=== PATIENT | male | born 1980 | race African-American/Black ===

== ENCOUNTER 2021-01-27 21:50 | Inpatient (IN) | payer MEDICAID, SELFPAY ==
[2021-01-27 21:53] VITALS: BP 145/87; PULSE 103; RESP 18; TEMP 37.1; O2SAT 98; BMI 21.2
--- NOTE | 2021-01-27 23:55 | ED_ITS ---
HPI - Psych General Chief Complaint: Psychiatric Symptoms Stated Complaint: crisis Time Seen by Provider: 01/27/21 22:41 Source: patient Mode of arrival: ambulatory History of Present Illness HPI Narrative: This is a 40-year-old male without significant past medical history but with a history of heroin and cocaine use who presents with complaints of auditory and visual hallucinations and the sensation that he is being followed. Patient states that this started a couple of days ago and he has had decreased sleep and that he call the retail reset merchandiser wants to investigate what he thought was flashing lights. He denies that the auditory hallucinations are command in nature and denies that they are telling him to hurt himself or others. He denies any suicidal or homicidal ideation currently. Related Data Allergies Allergy/AdvReac Type Severity Reaction Status Date / Time No Known Allergies Allergy Verified 01/27/21 21:53 Review of Systems Review of Systems: Pertinent positives and negatives as stated in HPI 10 point review of systems is otherwise negative. PMFSH Past Medical History Source: nursing notes reviewed Medical History Polysubstance (including opioids) dependence w/o physiol dependence Social History Social History Advance Directives: No Physical Exam Vital Signs: Vital Signs: Last Vital Signs Temp 98.5 F 01/28/21 00:05 Pulse 66 01/28/21 00:05 Resp 16 01/28/21 00:05 BP 122/74 01/28/21 00:05 Pulse Ox 99 01/28/21 00:05 Body Mass Index 21.2 VITAL SIGNS: Reviewed. GENERAL: Well developed, well nourished, in no acute distress. HEAD: Normocephalic/atraumatic EYES: PERRLA, EOMI LUNGS: Normal breath sounds. No adventitious sounds or accessory muscle use. SpO2<98> CARDIOVASCULAR: Regular rate and rhythm without noted murmurs ABDOMEN: Soft, non-tender, non-distended with bowel sounds. NEUROLOGIC: Alert and oriented x 4. PSYCH: Normal affect, logical thought Course Course Course Narrative: 40-year-old male with history and clinical presentation suggestive of possible AVH secondary to substance use, but will ask behavioral team to evaluate in the a.m. after less likely substance effect. Signed out to Dr Lamar. Reevaluation(s) Reevaluation #1: Patient placed in physician observation because the patient needed more time for behavioral evaluation. At the time observation was started the patient's vital signs were stable, patient is alert and oriented but slightly agitated, neuro: Nonfocal, CV RRR, lungs clear Time: 00:30 [facility] - Psych Lab Data Labs: Lab Results 01/28/21 Range/Units 00:43 Ethyl Alcohol < 10 mg/dL
--- NOTE | 2021-01-28 | ECG_ITS ---
Test Reason : MED CLEARANCE Blood Pressure : / mmHG Vent. Rate : 071 BPM Atrial Rate : 071 BPM P-R Int : 152 ms QRS Dur : 092 ms QT Int : 438 ms P-R-T Axes : 082 072 077 degrees QTc Int : 475 ms Normal sinus rhythm Normal ECG No previous ECGs available Referred By: Huber Taylor Electronically Signed By:Leo Garibay
[2021-01-28 00:05] VITALS: BP 122/74; PULSE 66; RESP 16; TEMP 36.9; O2SAT 99
[2021-01-28 01:14] LABS: Ethanol < 10 mg/dL
[2021-01-28 05:41] LABS: Amphetamine Screen Urine Not Detected (Not Detect); Barbiturates, Urine Not Detected (Not Detect); Benzodiazepines Screen Urine Not Detected (Not Detect); Cannabinoid Screen Urine POSITIVE (Not Detect); Cocaine Screen Urine POSITIVE (Not Detect); Opiate Screen Urine POSITIVE (Not Detect); Phencyclidine Screen Urine Not Detected (Not Detect)
--- NOTE | 2021-01-28 07:58 | PC.NURSE ---
Completed N Crisis referral and submitted to [facility]. Patient sleeping in room, no sign of distress, respirations even/unlabored bilaterally.
[2021-01-28 08:00] VITALS: RESP 16
[2021-01-28 08:20] VITALS: BP 118/71; PULSE 67; RESP 18; TEMP 36.6; O2SAT 100
--- NOTE | 2021-01-28 10:20 | MHC.RECOVSUP ---
Recovery Support note: Patient is a 40 year old Estonian speaking male who presented to [facility] ED due to poor sleep and AH. Patient reported recent heroin use. This commercial underwriter met with patient to discuss withdrawal symptoms. Patient reports that he is starting to feel withdrawal symptoms and he is interested in receiving methadone. Patient reports he gets his methadone at [facility] which is now [facility]. Patient reported to this commercial underwriter that he has missed several days and he is concerned that they will not allow him to return. Patient signed a release which was faxed to [facility]. This commercial underwriter spoke with Sol GARCIA, who reported that patient last received 70mg on 01/20. Sol spoke with the PA at the clinic and patient is able to return for dosing however they would start patient at 30mg because he missed several days. Discussed with patient and he is agreeable to receiving 30mg while in the hospital and he will return to the [facility] after discharge to continue working with them for medication management. Patient is currently awaiting a BHN evaluation. Discussed case with patient's RN and ED provider.
[2021-01-28] MEDS: Ibuprofen 800 MG TABLET PO (14:15)
[2021-01-28 16:00] VITALS: RESP 14
[2021-01-28] MEDS: LORazepam 1 MG TABLET 2 MG PO (16:54)
[2021-01-28 17:57] LABS: MANUAL DIFF FLAG NO
[2021-01-28 17:58] LABS: Basophils Percent Auto 0.2 % (0-2); Eosinophils Absolute Auto 0.1 X10*3/uL (0.0-0.4); Eosinophils Percent Auto 1.2 % (0-4); Hematocrit 44.7 % (42-52); Hemoglobin 14.6 g/dl (14.0-18.0); Imm Gran Abs Auto 0.01 X10*3/uL (0.00-0.03); Imm Gran Pct Auto 0.2 % (0.0-0.4); Lymphocytes Absolute Auto 1.4 X10*3/uL (1.2-4.9); Lymphocytes Percent Auto 27.8 % (20-40); Mean Corpuscular HGB Conc 32.7 g/dl (31.0-36.0); Mean Corpuscular Hemoglobin 27.7 pg (27.0-33.0); Mean Corpuscular Volume 84.8 fL (80-98); Mean Platelet Volume 9.6 fL (9.4-12.4); Monocytes Absolute Auto 0.5 X10*3/uL (0.1-1.2); Monocytes Percent Auto 9.3 % (2-11); Neutrophils Percent Auto 61.3 % (45-73); Platelet Count 292 X10*3/uL (160-400); Red Blood Count 5.27 X10*6/uL (4.60-5.80); Red Cell Distribution Width 12.9 % (11.0-16.0); White Blood Count 4.9 X10*3/uL (4.8-10.8)
[2021-01-28 18:17] LABS: COVID-19 Test Negative (Negative)
--- NOTE | 2021-01-28 18:20 | MHC.RECOVSUP ---
? Reason for consult recovery Support o Current location: [facility] o Identified substance use concern: Heroin - Support ? Intervention: o Community resources provided o Harm reduction discussion ? Plan: o Patient to follow up with [facility] after discharge ? Additional information: Met with patient and is looking for after care a Group Home Program after he his mental situation is better...
[2021-01-28 18:31] VITALS: BP 112/73; PULSE 70; RESP 20; TEMP 36.9; O2SAT 99
[2021-01-28 18:31] LABS: Anion Gap 14 (12-20); Blood Urea Nitrogen 11 mg/dL (9-16); Calcium 9.5 mg/dL (8.4-10.2); Carbon Dioxide 26 mmol/L (22-29); Chloride 102 mmol/L (96-108); Creatinine Clr Calc Pharmacy 136.7; Estimated Glomerular Filt Rate > 60; Glucose Random 86 mg/dL (60-115); Potassium 4.2 mmol/L (3.3-5.1); Sodium 138 mmol/L (135-145)
--- NOTE | 2021-01-28 19:00 | PC.NURSE ---
PT TO M5 IN W/C WITH BELONGINGS AND SECURITY. PT LEFT ED IN NAD.
[2021-01-28 20:31] VITALS: BP 135/86; PULSE 81
[2021-01-28] MEDS: Acetaminophen 325 MG TABLET 650 MG PO (20:31)
[2021-01-28] MEDS: LORazepam 1 MG TABLET PO (20:31)
[2021-01-28] MEDS: cloNIDine HCL 0.1 MG TABLET PO (20:31)
[2021-01-28] MEDS: hydrOXYzine HCL 25 MG TABLET PO (20:31)
--- NOTE | 2021-01-28 21:41 | PC.NURSE ---
PT. IS A 40 YEAR OLD HOMELESS, MONGOLIAN SPEAKING MALE WHO PRESENTS FROM THE [facility] ED AT APPROX. 19:00 TO M 5 ON A CV STATUS. PT. IS COVID NEGATIVE, UTOX POSITIVE FOR COCAINE, MARIJUANA AND OPIOIDS. PT. REPORTED HE USES HEROIN IV. PT. STATED HE WAS AT [facility] 6 YEARS AGO. PT. REPORTED HE RECEIVES METHADONE AT [facility]. HE REPORTED PTSD, AH/VH, VOICES MAKING SOUNDS AND WHISTLING, TRYING TO ANNOY ME . HE DENIED SI, SH, BUT REPORTED HE HAD SH IN THE PAST. I LIKE CUTTING MYSELF . PT. HAS NO PCP, NO MENTAL HEALTH CARE SERVICES OUTSIDE THE HOSPITAL. HE REPORTED HE LOST 30 LBS. IN A COUPLE OF MONTH UNINTENTIONAL. PT. STATED HE HAS A TRAUMA HX AND NO SUPPORT SYSTEM. PT. HAD A FLAT, ANXIOUS AND DEPRESSED AFFECT, HE WAS TIRED DURING ADMISSION PROCESS. HE WAS COOPERATIVE, REPORTED BODY ACHE 8/10 BUT DENIED CURRENT WITHDRAWAL SYMPTOMS. HE REPORTED TO FEEL SAFE. ADMISSION MEDICATION ORDERS WERE RECEIVED BY Sarbjit HORTON, PRN ATIVAN, ATARAX, CLONIDINE AND TYLENOL WERE ADMINISTERED. PT. IS A SMOKER, NICOTINE REPLACEMENT AND DIET CONSULT WERE PLACED. PT. IS ON 5 MIN. SAFETY CHECKS, HE WAS ORIENTED TO THE UNIT. PT. NEEDS METHADONE ORDER PLACED IN AM FROM HIS PROVIDER.
[2021-01-29 06:00] VITALS: BP 105/56; PULSE 68; RESP 14; TEMP 37.1; O2SAT 99
[2021-01-29] MEDS: LORazepam 1 MG TABLET PO ×2 (08:17→18:54)
[2021-01-29] MEDS: Acetaminophen 325 MG TABLET 650 MG PO ×2 (08:18→19:43)
[2021-01-29] MEDS: cloNIDine HCL 0.1 MG TABLET PO ×2 (08:18→19:44)
[2021-01-29] MEDS: Nicotine 21 MG PATCH.TD24 TRANSDERMA (11:58)
--- NOTE | 2021-01-29 13:18 | MHC.RECOVSUP ---
Recovery Support note: This repairer typewriter followed up with this patient on the psychiatric unit to see how he is feeling regarding his withdrawal symptoms. Patient received a total of 40mg today and reports he is feeling OK however he thinks he would benefit from an increase in the dose. Patient reports it would be more convenient for him to get his methadone through the [facility] in [place]. Patient reports he is interested in remaining in treatment and that he would like to go to a [facility] after discharge. Plan to follow up with patient on Sunday and to discuss his discharge plan with his dialysis social worker.
[2021-01-29] MEDS: QUEtiapine Fumarate 50 MG TABLET PO (13:45)
[2021-01-29 16:58] VITALS: BP 110/70; PULSE 91; RESP 18; TEMP 36.2; O2SAT 100
[2021-01-29 19:44] VITALS: BP 117/77; PULSE 89
--- NOTE | 2021-01-29 20:47 | P.HPPS_ITS ---
HPI Chief Complaint: agitation Sources of Information: patient interviewed, chart reviewed and crisis/core team assessment reviewed HPI Subjective Notes: Conditional Voluntary Narrative: Drew presented to the ER with paranoia and an increase in agitation. He was experiencing AH, low mood, hopelessness, and vague SI. He has not been in treatment and he has been hoping to get back in to treatment. He is on methadone 70mg daily but has not taken any since 01/20/21. It was restarted in ER at 30mg. On arrival to the unit he was n WD and quite agitated. He settled once he was given a higher dose of methadone and recieved help from SW. He has relapsed with heroin, cocaine and MJ Past Psychiatric History: Multiple admissions Last on M5 2015 at which time he was Rx RSP and sertraline which were helpful Medical Evaluation Reviewed: Yes [facility] Medical History (Updated 01/29/21 @ 20:53 by Sabrina Byrnes MD) Polysubstance (including opioids) dependence w/o physiol dependence Family History: Denies Social History: Homeless Substance History: Opiates Diagnostics Vital Signs (24Hr): Vital Signs - 24 hr 01/29/21 06:00 01/29/21 16:58 01/29/21 19:44 Temperature 98.8 F 97.2 F Pulse Rate 68 91 89 Respiratory Rate 14 18 Blood Pressure 105/56 L 110/70 117/77 Pulse Oximetry 99 100 Body Mass Index 21.2 Labs Results: 01/28/21 17:50 01/28/21 17:50 Labs: Laboratory Results - last 48 hr 01/28/21 01/28/21 01/28/21 00:43 05:04 17:50 WBC 4.9 RBC 5.27 Hgb 14.6 Hct 44.7 MCV 84.8 MCH 27.7 MCHC 32.7 RDW 12.9 Plt Count 292 MPV 9.6 Immature Gran % (Auto) 0.2 Neut % (Auto) 61.3 Lymph % (Auto) 27.8 [place] % (Auto) 9.3 Eos % (Auto) 1.2 Baso % (Auto) 0.2 Lymph # (Auto) 1.4 [place] # (Auto) 0.5 Eos # (Auto) 0.1 Baso # (Auto) 0.0 Abs Immat Gran (auto) 0.01 Absolute Neuts (auto) 3.0 Absolute Nucleated RBC 0.000 Nucleated RBC % (auto) 0.0 Sodium Potassium Chloride Carbon Dioxide Anion Gap BUN Creatinine Estim Creat Clear Calc Estimated GFR Random Glucose Calcium Urine Opiates Screen POSITIVE H Ur Barbiturates Screen Not Detected Ur Phencyclidine Scrn Not Detected Ur Amphetamines Screen Not Detected U Benzodiazepines Scrn Not Detected Urine Cocaine Screen POSITIVE H U Marijuana (THC) Screen POSITIVE H Ethyl Alcohol < 10 COVID-19 ([facility]) COVID-19 Inxero 01/28/21 01/28/21 17:50 17:50 WBC RBC Hgb Hct MCV MCH MCHC RDW Plt Count MPV Immature Gran % (Auto) Neut % (Auto) Lymph % (Auto) [place] % (Auto) Eos % (Auto) Baso % (Auto) Lymph # (Auto) [place] # (Auto) Eos # (Auto) Baso # (Auto) Abs Immat Gran (auto) Absolute Neuts (auto) Absolute Nucleated RBC Nucleated RBC % (auto) Sodium 138 Potassium 4.2 Chloride 102 Carbon Dioxide 26 Anion Gap 14 BUN 11 Creatinine 0.76 Estim Creat Clear Calc 136.7 Estimated GFR > 60 Random Glucose 86 Calcium 9.5 Urine Opiates Screen Ur Barbiturates Screen Ur Phencyclidine Scrn Ur Amphetamines Screen U Benzodiazepines Scrn Urine Cocaine Screen U Marijuana (THC) Screen Ethyl Alcohol COVID-19 ([facility]) Negative COVID-19 Clin Com See Note Meds/Allergies Meds Home Medications Acetaminophen (Acetaminophen 325 Mg Tablet) 650 mg PO Q6H PRN PRN Reason: Headache/Pain Mild Scale (1-3) Last Admin: 01/29/21 19:43 Dose: 650 mg Documented by: Al Hydroxide/Mg Hydroxide (Magnesium Hydrox/Alum Hydrox 30 Ml Oral.Susp) 30 ml PO Q6H PRN PRN Reason: Heartburn/Nausea Clonidine HCl (Clonidine Hcl 0.1 Mg Tablet) 0.1 mg PO Q4H PRN; Protocol PRN Reason: Opiate Withdrawal Last Admin: 01/29/21 19:44 Dose: 0.1 mg Documented by: Hydroxyzine HCl (Hydroxyzine Hcl 25 Mg Tablet) 25 mg PO BEDTIME PRN PRN Reason: Anxiety Last Admin: 01/29/21 20:51 Dose: 25 mg Documented by: Lorazepam (Lorazepam 1 Mg Tablet) 2 mg PO ONCE PRN PRN Reason: anxiety Last Admin: 01/28/21 16:54 Dose: 2 mg Documented by: Lorazepam (Lorazepam 1 Mg Tablet) 1 mg PO Q4H PRN PRN Reason: Anxiety Last Admin: 01/29/21 18:54 Dose: 1 mg Documented by: Magnesium Hydroxide (Milk Of Magnesia 30 Ml Oral.Susp) 30 ml PO DAILY PRN PRN Reason: Constipation Methadone HCl (Methadone Hcl 1 Mg/0.1 Ml Oral.Conc) 50 mg PO DAILY [facility] Nicotine (Nicotine 21 Mg Patch.Td24) 21 mg TRANSDERMA DAILY [facility] Last Admin: 01/29/21 11:58 Dose: 21 mg Documented by: Ondansetron HCl (Ondansetron Odt 4 Mg Tab.Rapdis) 4 mg TRANSLINGU Q8H PRN PRN Reason: Nausea Quetiapine Fumarate (Quetiapine Fumarate 50 Mg Tablet) 50 mg PO BID@0830,1330 [facility] Last Admin: 01/29/21 13:45 Dose: 50 mg Documented by: Quetiapine Fumarate (Quetiapine Fumarate 200 Mg Tablet) 200 mg PO BEDTIME [facility] Last Admin: 01/29/21 20:51 Dose: 200 mg Documented by: Sertraline HCl (Sertraline Hcl 50 Mg Tablet) 50 mg PO DAILY [facility] Trazodone HCl (Trazodone Hcl 50 Mg Tablet) 50 mg PO BEDTIME PRN PRN Reason: Insomnia Last Admin: 01/29/21 20:51 Dose: 50 mg Documented by: Allergies Allergies Allergy/AdvReac Type Severity Reaction Status Date / Time No Known Allergies Allergy Verified 01/27/21 21:53 Mental Status Exam Mental Status Exam Patient Appearance: Disheveled Level of Consciousness: Awake Patient Behavior: Uncooperative Mood Description: Hostile Affect Description: Hostile Ability to Follow Directions: Fair Speech Pattern: Clear Memory Description: Intact Hallucinations: Auditory Delusions: Paranoid Ideation Thought Process: Rumination Thought Content: positive for Circumstantial, positive for Preoccupation, negative for Suicidal Ideation and negative for Homicidal Ideation Depressive Symptoms: Increased Irritability, Significant Weight Loss and Hopelessness Judgement: Poor Assessment & Plan Assessment & Plan (1) Polysubstance (including opioids) dependence w/o physiol dependence: Status: Acute Code(s): F19.20 - Other psychoactive substance dependence, uncomplicated Assessment and Plan: Sertaline 50mg po daily Risperdal 1mg po tid Increase methadone by 10mg a day, to 70mg CV Collect collateral Hx Patient educated on: diagnosis, medication risk/benefits and substance abuse Informed Consent: further education needed Reason for continued inpatient stay Substantial Risk for: inability to function and rapid decompensation
[2021-01-29] MEDS: traZODone HCL 50 MG TABLET PO (20:51)
[2021-01-29] MEDS: hydrOXYzine HCL 25 MG TABLET PO (20:51)
[2021-01-29] MEDS: QUEtiapine Fumarate 200 MG TABLET PO (20:51)
[2021-01-30 06:00] VITALS: BP 92/58; PULSE 65; RESP 16; TEMP 37.2; O2SAT 97
[2021-01-30] MEDS: QUEtiapine Fumarate 50 MG TABLET PO ×2 (08:32→12:52)
[2021-01-30] MEDS: Sertraline HCL 50 MG TABLET PO (08:32)
[2021-01-30] MEDS: Nicotine 21 MG PATCH.TD24 TRANSDERMA (08:32)
[2021-01-30 16:44] VITALS: BP 111/59; PULSE 63; RESP 16; TEMP 36.1; O2SAT 100
--- NOTE | 2021-01-30 18:44 | HO.PSYCHPN ---
Subjective Subjective Date of Service: 01/30/21 Reason For Visit: agitation Interim History: Drew was much more comfortable and he stated that he was feeling safer. He has been taking medication He has less WD symptoms Medication Compliance: Yes Side effects from medications: No Review of Systems Acute medical concerns: No Medical Review of Systems: unchanged Mental Status Exam Mental Status Exam Patient Appearance: Disheveled Level of Consciousness: Awake Patient Behavior: Uncooperative Mood Description: Hostile Affect Description: Hostile Ability to Follow Directions: Fair Speech Pattern: Clear Memory Description: Intact Hallucinations: Auditory Delusions: Paranoid Ideation Thought Process: Rumination Thought Content: positive for Circumstantial, positive for Preoccupation, negative for Suicidal Ideation and negative for Homicidal Ideation Depressive Symptoms: Increased Irritability, Significant Weight Loss and Hopelessness Judgement: Poor Diagnostics Vital Signs (24Hr): Vital Signs - 24 hr 01/29/21 19:44 01/30/21 06:00 01/30/21 16:44 Temperature 98.9 F 96.9 F Pulse Rate 89 65 63 Respiratory Rate 16 16 Blood Pressure 117/77 92/58 L 111/59 L Pulse Oximetry 97 100 Body Mass Index 21.2 Labs Results: 01/28/21 17:50 01/28/21 17:50 Medications Medications Current Medications Generic Name Dose Route Start Last Admin Trade Name Freq PRN Reason Stop Dose Admin Acetaminophen 650 mg 01/28/21 19:12 01/29/21 19:43 Acetaminophen 325 Mg Tablet PO 650 mg Q6H PRN Administration Headache/Pain Mild Scale (1-3) Al Hydroxide/Mg Hydroxide 30 ml 01/28/21 19:12 Magnesium Hydrox/Alum Hydrox 30 Ml Oral.Susp PO Q6H PRN Heartburn/Nausea Clonidine HCl 0.1 mg 01/28/21 19:14 01/29/21 19:44 Clonidine Hcl 0.1 Mg Tablet PO 0.1 mg Q4H PRN Administration Opiate Withdrawal Protocol Hydroxyzine HCl 25 mg 01/28/21 19:12 01/29/21 20:51 Hydroxyzine Hcl 25 Mg Tablet PO 25 mg BEDTIME PRN Administration Anxiety Ibuprofen 600 mg 01/30/21 12:06 Ibuprofen 600 Mg Tablet PO Q6H PRN Pain, Moderate (Pain Scale 4-6 Lorazepam 2 mg 01/28/21 14:10 01/28/21 16:54 Lorazepam 1 Mg Tablet PO 2 mg ONCE PRN Administration anxiety Lorazepam 1 mg 01/28/21 19:14 01/29/21 18:54 Lorazepam 1 Mg Tablet PO 1 mg Q4H PRN Administration Anxiety Magnesium Hydroxide 30 ml 01/28/21 19:12 Milk Of Magnesia 30 Ml Oral.Susp PO DAILY PRN Constipation Methadone HCl 50 mg 01/30/21 09:00 01/30/21 08:32 Methadone Hcl 1 Mg/0.1 Ml Oral.Conc PO 50 mg DAILY [facility] Administration Nicotine 21 mg 01/29/21 12:00 01/30/21 08:32 Nicotine 21 Mg Patch.Td24 TRANSDERMA 21 mg DAILY [facility] Administration Nicotine Polacrilex 4 mg 01/30/21 12:09 01/30/21 12:52 Nicotine Polacrilex 4 Mg Lozenge BUCCAL 4 mg Q2H PRN Administration Nicotine Cravings Ondansetron HCl 4 mg 01/29/21 19:08 Ondansetron Odt 4 Mg Tab.Rapdis TRANSLINGU Q8H PRN Nausea Quetiapine Fumarate 50 mg 01/29/21 13:30 01/30/21 12:52 Quetiapine Fumarate 50 Mg Tablet PO 50 mg BID@0830,1330 [facility] Administration Quetiapine Fumarate 200 mg 01/29/21 21:00 01/29/21 20:51 Quetiapine Fumarate 200 Mg Tablet PO 200 mg BEDTIME [facility] Administration Sertraline HCl 50 mg 01/30/21 09:00 01/30/21 08:32 Sertraline Hcl 50 Mg Tablet PO 50 mg DAILY [facility] Administration Trazodone HCl 50 mg 01/28/21 19:12 01/29/21 20:51 Trazodone Hcl 50 Mg Tablet PO 50 mg BEDTIME PRN Administration Insomnia Allergies Allergies Allergy/AdvReac Type Severity Reaction Status Date / Time No Known Allergies Allergy Verified 01/27/21 21:53 Assessment & Plan Assessment & Plan (1) Polysubstance (including opioids) dependence w/o physiol dependence: Status: Acute Code(s): F19.20 - Other psychoactive substance dependence, uncomplicated Assessment and Plan: Sertaline 50mg po daily Risperdal 1mg po tid Increase methadone by 10mg a day, to 70mg CV Collect collateral Hx Greater than 50% of the session was spent on counseling and/or coordination of care Patient educated on: diagnosis, medication risk/benefits and substance abuse Informed Consent: further education needed Reason for contiued inpatient stay Substantial Risk for: inability to function and rapid decompensation
[2021-01-30] MEDS: QUEtiapine Fumarate 200 MG TABLET PO (20:36)
[2021-01-30] MEDS: Ibuprofen 600 MG TABLET PO (20:36)
[2021-01-30] MEDS: LORazepam 1 MG TABLET PO (20:36)
[2021-01-31 06:00] VITALS: BP 91/52; PULSE 62; RESP 16; TEMP 36.3; O2SAT 98
[2021-01-31] MEDS: Nicotine 21 MG PATCH.TD24 TRANSDERMA (08:58)
[2021-01-31] MEDS: QUEtiapine Fumarate 50 MG TABLET PO ×2 (08:59→14:06)
[2021-01-31] MEDS: Sertraline HCL 50 MG TABLET PO (08:59)
[2021-01-31] MEDS: Ibuprofen 600 MG TABLET PO ×2 (09:05→16:10)
[2021-01-31] MEDS: LORazepam 1 MG TABLET PO ×2 (09:35→14:13)
[2021-01-31 16:11] VITALS: BP 129/77; PULSE 101
[2021-01-31] MEDS: cloNIDine HCL 0.1 MG TABLET PO (16:11)
[2021-01-31 16:38] VITALS: BP 129/77; PULSE 101; RESP 18; TEMP 36.8; O2SAT 98
--- NOTE | 2021-01-31 19:43 | MHC.RECOVSUP ---
? Reason for consult Recovery support o Current location: [facility] o Identified substance use concern: Heroin - Support ? Intervention: o Harm reduction discussion ? Plan: o Patient to follow up with H after discharge ? 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
[2021-01-31] MEDS: LORazepam 0.5 MG TABLET PO (21:02)
[2021-01-31] MEDS: hydrOXYzine HCL 25 MG TABLET PO (21:02)
[2021-01-31] MEDS: QUEtiapine Fumarate 200 MG TABLET PO (21:02)
[2021-01-31] MEDS: traZODone HCL 50 MG TABLET PO (21:02)
[2021-02-01 06:10] VITALS: BP 97/52; PULSE 68; RESP 16; TEMP 36.4; O2SAT 98
[2021-02-01] MEDS: Nicotine 21 MG PATCH.TD24 TRANSDERMA (09:23)
[2021-02-01] MEDS: Sertraline HCL 50 MG TABLET PO (09:23)
[2021-02-01] MEDS: QUEtiapine Fumarate 50 MG TABLET PO ×2 (09:23→13:40)
--- NOTE | 2021-02-01 09:26 | HO.PSYCHPN ---
Subjective Subjective Date of Service: 01/31/21 Reason For Visit: agitation Interim History: Late entry for 01/31/21 Pt reports he's doing better. He says he still has some withdrawal and remains irritable and easily triggered, but that it's less so since admission. He says i'm still bernabe...a little paranoid but better. He denies any SI or HI. He asks for ensure Medication Compliance: Yes Side effects from medications: No Attending Groups: No Mental Status Exam Mental Status Exam Narrative: Patient Appearance: Disheveled, malodorous Level of Consciousness: Awake Patient Behavior: cooperative, calm Mood Description: better Affect Description: constricted Ability to Follow Directions: Fair Speech Pattern: Clear Memory Description: Intact Hallucinations: denies Delusions: says some Paranoid Ideation Thought Process: on getting better Thought Content: goal oriented, linear; no Si/HI Depressive Symptoms: Increased Irritability, Significant Weight Loss and Hopelessness Judgement: impaired Diagnostics Vital Signs (24Hr): Vital Signs - 24 hr 01/31/21 16:11 01/31/21 16:38 02/01/21 06:10 Temperature 98.3 F 97.5 F Pulse Rate 101 H 101 H 68 Respiratory Rate 18 16 Blood Pressure 129/77 129/77 97/52 L Pulse Oximetry 98 98 Body Mass Index 21.2 Labs Results: 01/28/21 17:50 01/28/21 17:50 Medications Medications Current Medications Generic Name Dose Route Start Last Admin Trade Name Freq PRN Reason Stop Dose Admin Acetaminophen 650 mg 01/28/21 19:12 01/29/21 19:43 Acetaminophen 325 Mg Tablet PO 650 mg Q6H PRN Administration Headache/Pain Mild Scale (1-3) Al Hydroxide/Mg Hydroxide 30 ml 01/28/21 19:12 Magnesium Hydrox/Alum Hydrox 30 Ml Oral.Susp PO Q6H PRN Heartburn/Nausea Clonidine HCl 0.1 mg 01/28/21 19:14 01/31/21 16:11 Clonidine Hcl 0.1 Mg Tablet PO 0.1 mg Q4H PRN Administration Opiate Withdrawal Protocol Hydroxyzine HCl 25 mg 01/28/21 19:12 01/31/21 21:02 Hydroxyzine Hcl 25 Mg Tablet PO 25 mg BEDTIME PRN Administration Anxiety Ibuprofen 600 mg 01/30/21 12:06 01/31/21 16:10 Ibuprofen 600 Mg Tablet PO 600 mg Q6H PRN Administration Pain, Moderate (Pain Scale 4-6 Lorazepam 0.5 mg 01/31/21 15:37 01/31/21 21:02 Lorazepam 0.5 Mg Tablet PO 0.5 mg BID PRN Administration Anxiety Magnesium Hydroxide 30 ml 01/28/21 19:12 Milk Of Magnesia 30 Ml Oral.Susp PO DAILY PRN Constipation Methadone HCl 50 mg 01/30/21 09:00 02/01/21 09:23 Methadone Hcl 1 Mg/0.1 Ml Oral.Conc PO 50 mg DAILY [facility] Administration Nicotine 21 mg 01/29/21 12:00 02/01/21 09:23 Nicotine 21 Mg Patch.Td24 TRANSDERMA 21 mg DAILY [facility] Administration Nicotine Polacrilex 4 mg 01/30/21 12:09 01/30/21 12:52 Nicotine Polacrilex 4 Mg Lozenge BUCCAL 4 mg Q2H PRN Administration Nicotine Cravings Ondansetron HCl 4 mg 01/29/21 19:08 Ondansetron Odt 4 Mg Tab.Rapdis TRANSLINGU Q8H PRN Nausea Quetiapine Fumarate 50 mg 01/29/21 13:30 02/01/21 09:23 Quetiapine Fumarate 50 Mg Tablet PO 50 mg BID@0830,1330 [facility] Administration Quetiapine Fumarate 200 mg 01/29/21 21:00 01/31/21 21:02 Quetiapine Fumarate 200 Mg Tablet PO 200 mg BEDTIME [facility] Administration Sertraline HCl 50 mg 01/30/21 09:00 02/01/21 09:23 Sertraline Hcl 50 Mg Tablet PO 50 mg DAILY [facility] Administration Trazodone HCl 50 mg 01/28/21 19:12 01/31/21 21:02 Trazodone Hcl 50 Mg Tablet PO 50 mg BEDTIME PRN Administration Insomnia Allergies Allergies Allergy/AdvReac Type Severity Reaction Status Date / Time No Known Allergies Allergy Verified 01/27/21 21:53 Assessment & Plan Assessment & Plan (1) Polysubstance (including opioids) dependence w/o physiol dependence: Status: Acute Code(s): F19.20 - Other psychoactive substance dependence, uncomplicated Assessment and Plan: No changes to current tx plan other than adding ensure Sertaline 50mg po daily Risperdal 1mg po tid Increase methadone by 10mg a day, to 70mg CV Collect collateral Hx Greater than 50% of the session was spent on counseling and/or coordination of care Reason for contiued inpatient stay Substantial Risk for: med/psych decompensation
[2021-02-01] MEDS: Ibuprofen 600 MG TABLET PO (09:51)
[2021-02-01] MEDS: LORazepam 0.5 MG TABLET PO (10:54)
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
[2021-02-01] MEDS: ARIPiprazole 2 MG TABLET PO (16:06)
[2021-02-01 19:06] VITALS: BP 108/63; PULSE 91; TEMP 36.1
[2021-02-01] MEDS: QUEtiapine Fumarate 200 MG TABLET PO (21:12)
[2021-02-02 06:00] VITALS: BP 91/52; PULSE 69; RESP 16; TEMP 35.9; O2SAT 96
[2021-02-02] MEDS: Sertraline HCL 50 MG TABLET 75 MG PO (09:22)
[2021-02-02] MEDS: ARIPiprazole 5 MG TABLET PO (09:23)
[2021-02-02] MEDS: Nicotine 21 MG PATCH.TD24 TRANSDERMA (09:24)
[2021-02-02] MEDS: LORazepam 0.5 MG TABLET PO ×2 (09:53→20:00)
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
[2021-02-02] MEDS: Ibuprofen 600 MG TABLET PO (13:40)
--- NOTE | 2021-02-02 14:08 | MHC.CLN ---
NUTRITION CONSULT FOR WEIGHT LOSS PATIENT REPORTS WEIGHT LOSS OF ABOUT 30# IN THE PAST 3-4 MONTHS. HX OF POLYSUBSTANCE ABUSE AND REPORTS THAT LOST WEIGHT WHILE USING. ORDER IN PLACE FOR ENSURE 240 CC TID, TO PROVIDE 1050 KCAL, 60 G PROTEIN IF 100% CONSUMED. STATED THAT ENSURE HELPS . NO REPORTED CONCERNS WITH CURRENT APPETITE.
[2021-02-02 15:36] VITALS: BP 110/69; PULSE 102
[2021-02-02] MEDS: cloNIDine HCL 0.1 MG TABLET PO (15:36)
[2021-02-02 18:00] VITALS: BP 98/62; PULSE 66; TEMP 35.8
--- NOTE | 2021-02-02 19:33 | MHC.RECOVSUP ---
? Reason for consult Recovery Support o Current location: [facility] o Identified substance use concern: Heroin - Support ? Intervention: o Community resources provided o Harm reduction discussion ? Plan: ? Additional information: Patient eager about His Recovery Plan that he being offered by Recovery care team.. His first choice seem to be [facility].. I would try to get in contact with them in the morning.. to check his stats.
[2021-02-02] MEDS: QUEtiapine Fumarate 200 MG TABLET PO (20:24)
[2021-02-02] MEDS: traZODone HCL 50 MG TABLET 150 MG PO (20:25)
[2021-02-02] MEDS: hydrOXYzine HCL 25 MG TABLET PO (20:25)
[2021-02-03 06:00] VITALS: BP 101/56; PULSE 86; RESP 16; TEMP 36.9; O2SAT 95
[2021-02-03] MEDS: ARIPiprazole 5 MG TABLET PO (08:39)
[2021-02-03] MEDS: Nicotine 21 MG PATCH.TD24 TRANSDERMA (08:39)
[2021-02-03] MEDS: Sertraline HCL 50 MG TABLET 75 MG PO (08:39)
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
[2021-02-03] MEDS: LORazepam 0.5 MG TABLET PO (13:17)
[2021-02-03] MEDS: Ibuprofen 600 MG TABLET PO (13:17)
[2021-02-03 16:10] VITALS: BP 102/57; PULSE 82; TEMP 36.2
[2021-02-03 20:15] VITALS: BP 115/66; PULSE 88; TEMP 36.6
[2021-02-03 20:34] VITALS: BP 115/66; PULSE 89
[2021-02-03] MEDS: Prazosin HCL 1 MG CAPSULE PO (20:34)
[2021-02-03] MEDS: QUEtiapine Fumarate 200 MG TABLET PO (21:06)
[2021-02-04 06:00] VITALS: BP 90/58; PULSE 76; RESP 16; TEMP 36.9; O2SAT 97
[2021-02-04] MEDS: Sertraline HCL 50 MG TABLET 75 MG PO (08:55)
[2021-02-04] MEDS: ARIPiprazole 5 MG TABLET PO ×2 (08:55→13:30)
[2021-02-04] MEDS: Nicotine 21 MG PATCH.TD24 TRANSDERMA (08:55)
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
[2021-02-04] MEDS: LORazepam 0.5 MG TABLET PO (10:40)
[2021-02-04] MEDS: Ibuprofen 600 MG TABLET PO (10:40)
--- NOTE | 2021-02-04 13:42 | MHC.RECOVSUP ---
Recovery Support note: This scientific writer followed up with patient to check in and discuss his discharge plan. Patient is currently awaiting a [facility] bed and he is happy with this plan. Patient continues to express interest in going to the [facility] in [place]. Explained to patient that since he is already established with [facility], it makes the most sense for him to continue to receive medication through that facility. Patient can work with [facility] staff to transfer his care to the [facility] or he can plan to transfer care after discharge from [facility]. Patient acknowledges and reports he is comfortable with this plan. This scientific writer spoke with Sol at [facility] and patient is able to return to their program as long as he brings a last dose letter or if he send documentation of his dosing history. Discussed case with patient's SWMaddie. If patient is accepted to [facility], they may require patient to transfer his methadone care to the [facility] facility in [place]. If this is the case, the Recovery Support Team is available to complete the referral process. Patient expressed interest in meeting with Center Rep Jae again when possible. This scientific writer will inform Jae.
[2021-02-04 21:05] VITALS: BP 109/64; PULSE 92; TEMP 36.9
[2021-02-04 21:18] VITALS: BP 109/64; PULSE 92
[2021-02-04] MEDS: Prazosin HCL 1 MG CAPSULE PO (21:18)
[2021-02-04] MEDS: QUEtiapine Fumarate 200 MG TABLET PO (21:18)
[2021-02-05 06:00] VITALS: BP 106/56; PULSE 68; RESP 97; TEMP 36.6; O2SAT 97
[2021-02-05] MEDS: ARIPiprazole 10 MG TABLET PO (08:45)
[2021-02-05] MEDS: Sertraline HCL 50 MG TABLET 75 MG PO (08:45)
[2021-02-05] MEDS: Nicotine 21 MG PATCH.TD24 TRANSDERMA (08:46)
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
[2021-02-05] MEDS: LORazepam 0.5 MG TABLET PO (11:18)
[2021-02-05 16:10] VITALS: BP 110/67; PULSE 94; TEMP 36.3
[2021-02-05 21:47] VITALS: BP 128/65; PULSE 100
[2021-02-05] MEDS: QUEtiapine Fumarate 50 MG TABLET 150 MG PO (21:47)
[2021-02-05] MEDS: Prazosin HCL 1 MG CAPSULE PO (21:47)
[2021-02-06 06:10] VITALS: BP 113/69; PULSE 64; RESP 16; TEMP 36.9; O2SAT 99
[2021-02-06] MEDS: Sertraline HCL 50 MG TABLET 75 MG PO (08:26)
[2021-02-06] MEDS: ARIPiprazole 10 MG TABLET PO (08:26)
[2021-02-06] MEDS: Nicotine 21 MG PATCH.TD24 TRANSDERMA (08:26)
[2021-02-06] MEDS: Ibuprofen 600 MG TABLET PO (10:55)
[2021-02-06] MEDS: LORazepam 0.5 MG TABLET PO (11:34)
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
[2021-02-06 16:56] VITALS: BP 116/73; PULSE 88; TEMP 36.5
[2021-02-06 21:15] VITALS: BP 120/75; PULSE 87
[2021-02-06] MEDS: QUEtiapine Fumarate 100 MG TABLET PO (21:15)
[2021-02-06] MEDS: Prazosin HCL 1 MG CAPSULE PO (21:15)
[2021-02-07 06:00] VITALS: BP 110/58; PULSE 66; RESP 16; TEMP 36.4; O2SAT 98
[2021-02-07] MEDS: Nicotine 21 MG PATCH.TD24 TRANSDERMA (08:56)
[2021-02-07] MEDS: Sertraline HCL 50 MG TABLET 75 MG PO (08:56)
[2021-02-07] MEDS: ARIPiprazole 10 MG TABLET PO (08:56)
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
[2021-02-07] MEDS: LORazepam 0.5 MG TABLET PO ×2 (11:09→14:18)
[2021-02-07 18:00] VITALS: BP 124/73; PULSE 91; TEMP 36.2
[2021-02-07 21:41] VITALS: BP 133/84; PULSE 92
[2021-02-07] MEDS: Prazosin HCL 1 MG CAPSULE PO (21:41)
[2021-02-07] MEDS: QUEtiapine Fumarate 100 MG TABLET PO (21:41)
[2021-02-08 06:00] VITALS: BP 91/55; PULSE 68; RESP 16; TEMP 36.4; O2SAT 97
[2021-02-08] MEDS: ARIPiprazole 15 MG TABLET PO (08:30)
[2021-02-08] MEDS: Sertraline HCL 50 MG TABLET 75 MG PO (08:30)
[2021-02-08] MEDS: Nicotine 21 MG PATCH.TD24 TRANSDERMA (08:30)
--- NOTE | 2021-02-08 10:03 | PM.PSYDC ---
DS: Providers Provider Date of Service: 02/08/21 Date of admission: 01/28/21 19:12 Date of discharge: 02/08/21 Primary care physician: None Physician Attending physician on admission: Vicente Senior Attending physician on discharge: Zainab De La Fuente DS: Diagnosis Discharge Diagnosis (1) Schizoaffective disorder, depressive type: Status: Chronic (2) Opioid use disorder: Status: Chronic Problem details: on maintenance medication (3) Chronic post-traumatic stress disorder (PTSD): Status: Chronic Discharge Plan Discharge Patient Disposition: Xfer Inpatient Rehab Fac Discharge Diagnosis: schizoaffective disorder, depressed type Referrals: Moon Silverio ([facility]) [Other] - 1 Week (Please call Moon Silverio while you are at [facility] to discuss your referral and interest in the program) [facility] [Other] - 1 Week (Please call the above number if interested in obtaining outpatient therapy and psychiatry providers) Roseann Garner ([facility]) [Other] - 1 Week (Please call to follow up on your referral while at [facility]) Neida Montez ([facility]) [Other] - 1 Week (Please follow up with your referral while at [facility]) Physician,Raisa [Primary Care Provider] - 1 Week (follow up walk in to [address] ) Discharge Medications: New prazosin 1 mg Capsule 1 mg PO BEDTIME 30 Days Qty: 30 RF: 1 aripiprazole 15 mg Tablet 15 mg PO DAILY 30 Days Qty: 30 RF: 1 methadone [Methadose] 10 mg/mL Concentrate 50 mg PO DAILY 30 Days Qty: 150 RF: 0 quetiapine 100 mg Tablet 100 mg PO BEDTIME PRN (Reason: continued insomnia) 30 Days Qty: 30 RF: 1 sertraline 50 mg Tablet 75 mg PO DAILY 30 Days Qty: 45 RF: 1 methadone [Methadose] 10 mg/mL concentrate 50 mg PO DAILY Qty: 5 RF: 0 Discharge Orders: Discharge Order (Routine); Ordered 02/08/21 Ordered By: Zainab De La Fuente Diet: regular diet Activity on Discharge: As tolerated Stand Alone Forms: Patient Portal Discharge page, Community Support Care Plan Goals: Maintain mood and safe behaviors Take medications as prescribed Continue to pursue sobriety Practice coping skills Continue with outpatient providers and reach out to them as needed Health Concerns: mood auditory hallucinations substance abuse Plan of Treatment: Follow up with outpatient providers regarding above concerns Take medications as prescribed Assessment: Risk assessment at time of discharge: Patient has been observed closely by nursing and unit staff throughout admission; patient has not engaged in any behaviors that suggest dangerousness to self or others and has demonstrated appropriate behaviors and impulse control. Patient was interviewed prior to discharge and found to be fully oriented and without any SI or HI. Patient has insight and demonstrates good judgment in terms of wanting to pursue treatment. Patient is not in imminent risk of harm to self or others and has a safety plan that includes presenting to the closest ER or calling 911 if feeling unsafe. Discharge Date/Time: 02/08/21 14:23 Mental Status Exam Mental Status Exam Narrative: Patient Appearance: Appropriate Patient Orientation: Person, Place, Time and Situation Level of Consciousness: Awake and Alert Patient Behavior: Appropriate, Talkative and Cooperative Mood Description: Constricted Affect Description: Constricted Patient Cognition Impaired: No Ability to Follow Directions: Good Speech Pattern: Spontaneous Speech Memory Description: Intact Hallucinations: None Delusions: Not Present Thought Process: Intact Thought Content: positive for Intact and positive for Suicidal Ideation (denies SI plan or intent) Judgement: Good DS: Summary Hospital Course Hospital Course: Pt is a 40 yo male with hx of psychosis, ptsd and substance abuse, on methadone, who presented to the ER with paranoia and an increase in agitation. Pt admitted on a CV. On admission he was initially agitated but soon calmed down and became cooperative. He endorsed AH, paranoid thinking and depression, though no SI. He was diagnosed with Schizoaffective disorder as also endorsed hx of AH when sober and not depressed; he denied hx of manic type symptoms. Pt was started on Risperdal and zoloft and methadone was increased. Patient initially covered by on-call provider and at some point he ended up on Seroquel instead of Risperdal. Pt remained in good behavioral control and participated in treatment. His AH and paranoid thinking continued and he agreed to trial of abilify which was titrated and proved effective and well tolerated. Also his Zoloft was increased to 75mg. His seroqeul was reduced and eventually left as a PRN for sleep only. On Abilify and Zoloft patients depression and paranoid thinking resolved and AH became minimal and able to be ignored. He continued to demonstrated good behavior, impulse control and deny SI and HI. Patient pushed himself to attend groups, working through anxiety and remained invested in treatment. Pt did not want methadone dose increased feeling it was adequate. Patient wanted to go and was accepted to a [facility] to which he wanted to go. As discharge approached he was in a good mood, no SI, with bright affect and future oriented. His depression, paranoid thinking remained resolved and AH remained minimal and ignorable. He was optimistic about staying sober. proposal lead writer discussed risks/side-effects of patients regimen including but not limited to abilify and Seroquel; pt understood and agreed with regimen. Time Spent with Patient Time attestation: Total time spent providing and/or coordinating discharge services:
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
== END 2021-02-08 14:23 | DRG 750 ==
LOC: HO.ED 01-28 19:14 → HO.PM5 01-28 19:27
PROVIDERS: Physician Assistant; Admitting Provider Psychiatry & Neurology Psychiatry; Emergency Provider Student in an Organized Health Care Education/Training Program; Visit Provider Psychiatry & Neurology Psychiatry
DX: F25.1 Schizoaffective disorder, depressive type (principal); F11.20 Opioid dependence, uncomplicated; F43.12 Post-traumatic stress disorder, chronic; F19.20 Other psychoactive substance dependence, uncomplicated; F17.210 Nicotine dependence, cigarettes, uncomplicated; Z20.822 Contact with and (suspected) exposure to COVID-19; Z71.6 Tobacco abuse counseling; Z59.0 Homelessness; Z79.899 Other long term (current) drug therapy
CPT/HCPCS: 36415; 80048; 80307; 82077; 85025; 87635; 93005; 99285

== ENCOUNTER 2021-06-18 10:24 | Inpatient (IN) | payer MEDICAID, SELFPAY ==
[2021-06-18] VITALS (12 sets, daily range): BP systolic 69–148; BP diastolic 42–89; PULSE 43–67; RESP 12–20; TEMP 36.3–37.1; O2SAT 98–99; BMI 23.1; BMI 23.2
--- NOTE | ~2021-06-18 | CT_ITS ---
EXAMINATION: CT HEAD WITHOUT CONTRAST CLINICAL INFORMATION: Dizziness, presyncope, fall x2 COMPARISON: None TECHNIQUE: Contiguous axial imaging was performed from the skull base to vertex without intravenous administration of contrast. This CT examination was performed using dose optimization techniques as appropriate, variously including the following: *Automated exposure control *Adjustment of mA and/or kV according to patient size (this includes techniques or standardized protocols for targeted exams where dose is matched to indication/reason for exam; i.e. extremities or head) *Use of iterative reconstruction technique DLP: 752 mGy-cm FINDINGS: There is no evidence of acute intracranial hemorrhage or territorial infarction. No abnormal mass effect or midline shift is seen. Ibrahim to white matter differentiation is well preserved. No extra-axial fluid collections are identified. The ventricles are normal in size. There is no abnormal attenuation within the brain parenchyma. The osseous structures and soft tissues are normal. The mastoid air cells and visualized portions of the paranasal sinuses are well aerated. CT/CT head/brain wo con IMPRESSION: No acute intracranial pathology.
--- NOTE | 2021-06-18 10:55 | ECG_ITS ---
Test Reason : dizzy Blood Pressure : / mmHG Vent. Rate : 046 BPM Atrial Rate : 046 BPM P-R Int : 230 ms QRS Dur : 088 ms QT Int : 490 ms P-R-T Axes : 085 021 034 degrees QTc Int : 428 ms Sinus bradycardia with 1st degree A-V block Otherwise normal ECG When compared with ECG of 28-JAN-2021 14:23, OR interval has increased Vent. rate has decreased BY 25 BPM T wave amplitude has decreased in Inferior leads QRS voltage has decreased Referred By: Anisa White Electronically Signed By:JEANIE CONRAD MD
--- NOTE | 2021-06-18 10:58 | ED.DIZZY ---
HPI - Dizziness General Chief Complaint: Dizziness Stated Complaint: dizziness Time Seen by Provider: 06/18/21 10:55 Source: patient Mode of arrival: ambulatory Limitations: no limitations History of Present Illness HPI Narrative: 40 y/o male with history of polysubstance abuse, currently on maintenance methadone, schizoaffective disorder, PTSD who presents to the ER with dizziness, vision changes and fall x2. Patient reports waking up at 3am to use the bathroom and when he stood up he felt extremely dizzy, he saw black spots and he fell to the ground. He was able to get up and use the bathroom and then went back to bed. When he woke up this morning the same thing happened again. He reports when he sat up and stood up lights got brighter and pixelated and his body gave out on him. He fell again. He denies hitting his head or losing consciousness either time. He has never had episodes like this before. MD elicited complaint: dizziness, lightheadedness, near syncope and difficulty walking Onset (ago): hour(s) (8) Timing: sudden onset Severity: severe Description: lightheadedness, off-balance, difficulty walking and near-syncope Context: change in body position History of similar symptoms: No Exacerbating factors: movement/ambulation and change in body position Relieving factors: rest and lying down Associated symptoms: denies other symptoms Associated neuro symptoms: vision changes Related Data Home Medications Medication Instructions Recorded Confirmed aripiprazole 15 mg tablet (Abilify) 15 mg PO DAILY 06/18/21 06/18/21 buspirone 10 mg tablet 1 tab PO TID 06/18/21 06/18/21 clonidine HCl 0.1 mg tablet 1 tab PO BID 06/18/21 06/18/21 loratadine 10 mg tablet 1 tab PO DAILY 06/18/21 06/18/21 methadone 10 mg/mL oral 60 mg PO DAILY 06/18/21 06/18/21 concentrate (Methadose) prazosin 5 mg capsule 1 cap PO BEDTIME 06/18/21 06/18/21 sertraline 100 mg tablet 100 mg PO DAILY 06/18/21 06/18/21 Allergies Allergy/AdvReac Type Severity Reaction Status Date / Time No Known Allergies Allergy Verified 01/27/21 21:53 Review of Systems Review of Systems: Constitutional: No Fever, No Chills ENT/Mouth: No sore throat, No Rhinorrhea, No Swallowing Difficulty Eyes: No Eye Pain, No Swelling, No Redness, +vision changes Cardiovascular: No Chest Pain, No SOB, No Orthopnea, No Edema Respiratory: No Cough, No Sputum, No Wheezing, No dyspnea Gastrointestinal: No Nausea, No Vomiting, No Diarrhea, No abdominal Pain Genitourinary: No Dysuria, No Urinary Frequency, No Hematuria Musculoskeletal: No joint pain, No Myalgias Skin: No Skin Lesions, No rash Neuro: + Weakness (lower extremities), No Numbness, + Dizziness, No Headache Psych: No Anxiety/Panic, No Depression Heme/Lymph: No Bruising, No Lymphadenopathy Endocrine: No Polyuria, No Polydipsia PMFSH Past Medical History Medical History (Updated 06/18/21 @ 15:31 by FREDY Sun) Chronic post-traumatic stress disorder (PTSD) Opioid use disorder Polysubstance (including opioids) dependence w/o physiol dependence Schizoaffective disorder, depressive type Family History Family History (Updated 01/29/21 @ 20:53 by Sabrina Byrnes MD) Other Polysubstance (including opioids) dependence w/o physiol dependence Social History Social History Household Members: None Housing: Homeless Do you presently have visiting nurse or other home services: No Patient Tobacco Use Status: Current everyday Tobacco user Tobacco use type: Cigarette Cigarettes Per Day: 4 e-Cigarette/Vaping Use: Never Used Second Hand Smoke Exposure: No Use of substances other than those prescribed or required for medical reasons: No Substance Use Type: Crack/Cocaine, Heroin, IV Drugs and Marijuana Advance Directives: No service: Yes ([employer] [id number]) Sexual orientation: Did not discuss Physical Exam Vital Signs: Vital Signs: Last Vital Signs Temp 98.8 F 06/18/21 12:15 Pulse 62 06/18/21 15:21 Resp 12 06/18/21 13:34 BP 103/67 06/18/21 15:21 Pulse Ox 99 06/18/21 13:34 Body Mass Index 23.1 Appearance: Alert. Oriented X3. No acute distress. Eyes: Pupils equal, round and reactive to light. ENT: Pharynx normal. Neck: Normal inspection. Neck supple. CVS: Bradycardic, regular rhythm. Pulses normal. Respiratory: No respiratory distress. Breath sounds normal. Abdomen: Soft and nontender. +BS x4 Skin: Skin warm and dry. Normal skin color. Normal skin turgor. No rashes. Extremities: No lower extremity edema. Neuro: Oriented X 3. No motor deficit. No sensory deficit. Course Course Course Narrative: 40-year-old male with history of polysubstance abuse, currently on methadone maintenance for the last 6-7 months, PTSD, schizoaffective disorder who presents to the ER with acute onset of dizziness and collapse x2. He denies loss of consciousness or true syncope. These events happened when standing. He is bradycardic to the 40s on arrival. Blood pressure is stable He has a nonfocal neuro exam. Will plan to check basic labs, EKG, CT head, D-dimer, and orthostatic vital signs. Reevaluation(s) Reevaluation #1: Orthostatic vital signs are severely positive with drop in systolic blood pressure from 1 40s to 80s. Will plan to rehydrate with 2 L of IV fluids and recheck orthostatic vital signs. His CT scan of his head was normal. Reevaluation #2: Patient went to the bathroom and fell. He reports when he was standing there he felt lightheaded, dizzy and he fell backward onto his buttocks. He spilled his urine sample of the bathroom floor. He did not hit his head or lose consciousness. He was escorted back to his room with a wheelchair. He is getting 2 L of IV fluids right now. Reevaluation #3: Repeat orthostatic vital signs remain positive. He has more than a 20 point drop in his systolic blood pressure. His heart rates were as low as 42 or 43. EKG is sinus bradycardia with first-degree AV block. This is new for him compared to prior. Will plan to admit for further management and workup. Spoke with Dr. White who will admit the patient. MDM - Dizziness Differential Diagnosis Differential diagnosis: Likely adverse reaction to drug, benign paroxysmal positional vertigo, orthostatic hypotension, vertebral basilar insufficiency, cerebrovascular accident and acute vestibular neuronitis Medical Records Attestation: I reviewed the patient's medical records. Lab Data Attestation: I reviewed the patient's lab results. Result diagrams: 06/18/21 11:32 06/18/21 11:32 Labs: Lab Results 06/18/21 06/18/21 06/18/21 Range/Units 11:32 11:32 11:32 WBC 7.6 (4.8-10.8) X10*3/uL RBC 5.31 (4.60-5.80) X10*6/uL Hgb 14.8 (14.0-18.0) g/dl Hct 44.2 (42-52) % MCV 83.2 (80-98) fL MCH 27.9 (27.0-33.0) pg MCHC 33.5 (31.0-36.0) g/dl RDW 11.9 (11.0-16.0) % Plt Count 185 D (160-400) X10*3/uL MPV 10.3 (9.4-12.4) fL Immature Gran % (Auto) 0.3 (0.0-0.4) % Neut % (Auto) 67.6 (45-73) % Lymph % (Auto) 23.4 (20-40) % [place] % (Auto) 5.6 (2-11) % Eos % (Auto) 2.7 (0-4) % Baso % (Auto) 0.4 (0-2) % Lymph # (Auto) 1.8 (1.2-4.9) X10*3/uL [place] # (Auto) 0.4 (0.1-1.2) X10*3/uL Eos # (Auto) 0.2 (0.0-0.4) X10*3/uL Baso # (Auto) 0.0 (0.0-0.2) X10*3/uL Abs Immat Gran (auto) 0.02 (0.00-0.03) X10*3/uL Absolute Neuts (auto) 5.2 (2.0-8.3) X10*3/uL Absolute Nucleated RBC 0.000 (0.0-0.012) X10*3/uL Nucleated RBC % (auto) 0.0 (0.0-0.2) /100WBC D-Dimer NG/ML Sodium 134 L (135-145) mmol/L Potassium 3.9 (3.3-5.1) mmol/L Chloride 100 (96-108) mmol/L Carbon Dioxide 28 (22-29) mmol/L Anion Gap 10 L (12-20) BUN 10 (9-16) mg/dL Creatinine 0.89 (0.5-1.4) mg/dL Estim Creat Clear Calc 127.4 Estimated GFR > 60 POC Glucose (60-115) mg/dL Random Glucose 106 (60-115) mg/dL Calcium 9.6 (8.4-10.2) mg/dL Magnesium 2.0 (1.6-2.6) mg/dL Total Bilirubin 0.5 (0.0-1.0) mg/dL Direct Bilirubin 0.3 (0.0-0.5) mg/dL AST 43 H (5-37) U/L ALT 107 H (0-40) U/L Alkaline Phosphatase 116 (39-117) U/L Total Protein 7.5 (6.5-8.0) g/dL Albumin 4.2 (3.5-5.0) g/dL Ethyl Alcohol mg/dL COVID-19 ([facility]) Negative (Negative) COVID-19 Clin Com See Note 06/18/21 06/18/21 06/18/21 Range/Units 11:32 11:32 15:27 WBC (4.8-10.8) X10*3/uL RBC (4.60-5.80) X10*6/uL Hgb (14.0-18.0) g/dl Hct (42-52) % MCV (80-98) fL MCH (27.0-33.0) pg MCHC (31.0-36.0) g/dl RDW (11.0-16.0) % Plt Count (160-400) X10*3/uL MPV (9.4-12.4) fL Immature Gran % (Auto) (0.0-0.4) % Neut % (Auto) (45-73) % Lymph % (Auto) (20-40) % [place] % (Auto) (2-11) % Eos % (Auto) (0-4) % Baso % (Auto) (0-2) % Lymph # (Auto) (1.2-4.9) X10*3/uL [place] # (Auto) (0.1-1.2) X10*3/uL Eos # (Auto) (0.0-0.4) X10*3/uL Baso # (Auto) (0.0-0.2) X10*3/uL Abs Immat Gran (auto) (0.00-0.03) X10*3/uL Absolute Neuts (auto) (2.0-8.3) X10*3/uL Absolute Nucleated RBC (0.0-0.012) X10*3/uL Nucleated RBC % (auto) (0.0-0.2) /100WBC D-Dimer < 200 NG/ML Sodium (135-145) mmol/L Potassium (3.3-5.1) mmol/L Chloride (96-108) mmol/L Carbon Dioxide (22-29) mmol/L Anion Gap (12-20) BUN (9-16) mg/dL Creatinine (0.5-1.4) mg/dL Estim Creat Clear Calc Estimated GFR POC Glucose 118 H (60-115) mg/dL Random Glucose (60-115) mg/dL Calcium (8.4-10.2) mg/dL Magnesium (1.6-2.6) mg/dL Total Bilirubin (0.0-1.0) mg/dL Direct Bilirubin (0.0-0.5) mg/dL AST (5-37) U/L ALT (0-40) U/L Alkaline Phosphatase (39-117) U/L Total Protein (6.5-8.0) g/dL Albumin (3.5-5.0) g/dL Ethyl Alcohol < 10 mg/dL COVID-19 ([facility]) (Negative) COVID-19 Clin Com ECG Data Attestation: I personally reviewed and interpreted this ECG as follows: ECG interpretation date: 06/18/21 ECG interpretation time: 15:29 Interpretation: Sinus bradycardia with first-degree AV block, heart rate 46 beats per minute, PA interval prolonged to 130 MS, normal QRS no ST segment elevations or depressions. Critical Care Time Critical Care Time Critical Care Time: Yes Total Critical Care Time: 42 Attestation: I have personally provided critical care time exclusive of time spent on separately billable procedures. Time includes review of lab data, radiology results, discussion with consultants, and monitoring for potential decompensation. Intervention performed as documented. Discharge Plan Discharge Clinical Impression: Orthostatic hypotension, Bradycardia, sinus, Pre-syncope, Multiple falls Patient Disposition: Admitted As Inpatient
--- NOTE | 2021-06-18 11:20 | PC.NURSE ---
pt alert and oriented, pt reports 2 episodes of dizziness and vision changes which resulted in falls. pt reports waking up at around 3am to use the bathroom and when he stood up he felt dizzy, he saw black spots and he fell to the floor. He denies LOC/hitting his head, he was able to get up from the floor and return to bed. Pt reports that this morning when he woke up the same thing happened again, he states that when he stood up from bed his lights got brighter, his body gave out on him resulting in a fall. He denies hitting his head/loc with this episode. pt states he has never had these episodes before.
[2021-06-18 11:37] LABS: MANUAL DIFF FLAG NO
[2021-06-18 11:39] LABS: Basophils Percent Auto 0.4 % (0-2); Eosinophils Absolute Auto 0.2 X10*3/uL (0.0-0.4); Eosinophils Percent Auto 2.7 % (0-4); Hematocrit 44.2 % (42-52); Hemoglobin 14.8 g/dl (14.0-18.0); Imm Gran Abs Auto 0.02 X10*3/uL (0.00-0.03); Imm Gran Pct Auto 0.3 % (0.0-0.4); Lymphocytes Absolute Auto 1.8 X10*3/uL (1.2-4.9); Lymphocytes Percent Auto 23.4 % (20-40); Mean Corpuscular HGB Conc 33.5 g/dl (31.0-36.0); Mean Corpuscular Hemoglobin 27.9 pg (27.0-33.0); Mean Corpuscular Volume 83.2 fL (80-98); Mean Platelet Volume 10.3 fL (9.4-12.4); Monocytes Absolute Auto 0.4 X10*3/uL (0.1-1.2); Monocytes Percent Auto 5.6 % (2-11); Neutrophils Absolute Auto 5.2 X10*3/uL (2.0-8.3); Neutrophils Percent Auto 67.6 % (45-73); Platelet Count 185 X10*3/uL (160-400); Red Blood Count 5.31 X10*6/uL (4.60-5.80); Red Cell Distribution Width 11.9 % (11.0-16.0); White Blood Count 7.6 X10*3/uL (4.8-10.8)
[2021-06-18 11:51] LABS: D Dimer < 200 NG/ML
[2021-06-18 11:54] LABS: Ethanol < 10 mg/dL
[2021-06-18 11:56] LABS: COVID-19 Test Negative (Negative); IDNOW Serial# 9DD0AD1C
[2021-06-18 12:02] LABS: Alanine Aminotransferase 107 U/L (0-40); Albumin Level 4.2 g/dL (3.5-5.0); Alkaline Phosphatase 116 U/L (39-117); Anion Gap 10 (12-20); Aspartate Amino Transferase 43 U/L (5-37); Bilirubin Direct 0.3 mg/dL (0.0-0.5); Bilirubin Total 0.5 mg/dL (0.0-1.0); Blood Urea Nitrogen 10 mg/dL (9-16); Calcium 9.6 mg/dL (8.4-10.2); Carbon Dioxide 28 mmol/L (22-29); Chloride 100 mmol/L (96-108); Creatinine Clr Calc Pharmacy 127.4; Estimated Glomerular Filt Rate > 60; Glucose Random 106 mg/dL (60-115); Potassium 3.9 mmol/L (3.3-5.1); Sodium 134 mmol/L (135-145); Total Protein 7.5 g/dL (6.5-8.0)
[2021-06-18] MEDS: 0.9 % Sodium Chloride 1,000 ML 999 ML IVCONT ×3 (13:10→15:44)
--- NOTE | 2021-06-18 14:00 | PC.NURSE ---
pt ambulated to the restroom, he reported that when he stood up to place urine sample on the sink his body gave out on him and he fell on his buttocks. he denies LOC/hitting his head. Pt was able to get himself up off the floor. Pt was brought back to his room in a w/c. Pt had orthos done and was + orthos. Pt denies dizziness while sitting/laying down but he reports feeling dizzy and light headed when he stands up.
[2021-06-18 15:31] LABS: Glucose, Whole Blood 118 mg/dL (60-115)
[2021-06-18 16:03] LABS: Appearance Urine CLEAR; Color Urine STRAW; Glucose Urine UA NEG (NEG); Leukocyte Esterase Urine NEG (NEG); Nitrite Urine NEG (NEG); Specific Gravity - Urine <= 1.005 (1.005-1.025); Urine Blood NEG (NEG); Urine Ketones NEG (NEG); Urine Protein NEG (NEG-TRACE)
[2021-06-18 16:16] LABS: Amphetamine Screen Urine Not Detected (Not Detect); Barbiturates, Urine Not Detected (Not Detect); Benzodiazepines Screen Urine Not Detected (Not Detect); Cocaine Screen Urine Not Detected (Not Detect); Fentanyl, urine Not Detected (Not Detect); Phencyclidine Screen Urine Not Detected (Not Detect)
[2021-06-18 16:21] LABS: Cannabinoid Screen Urine Not Detected (Not Detect); Opiate Screen Urine Not Detected (Not Detect)
--- NOTE | 2021-06-18 16:32 | P.HPHOSP_ITS ---
History of Present Illness Date of Service: 06/18/21 Attending physician on admission: Anisa White Chief Complaint: Orthostasis, bradycardia 40-year-old male history of schizoaffective, PTSD depression-he said that since yesterday night-he is feeling dizzy and blacked out type episode and fell down x3 but did not lose consciousness. First episode started when he was coming out of the bathroom and suddenly felt like everything going black in front of his eyes and slumped down. He had to episode after that in the morning. He denies any chest pain or shortness of breath or or palpitations before this episodes. But he felt like passing out. He said he had dizziness before also but he never had this severe episode of falling down or blacking out type situation. He denies using any new medication, he denies any recreation drug use also currently. he says he is hydrating and eating well. Lab imaging EKG reviewed and personally interpreted: sodium borderline 134, fingersticks around 118, elevated ALT and as aST mild head ct:iMPRESSION: No acute intracranial pathology. Denies any new complaint of chest pain or shortness of breath or abdominal pain or fever or chills or nausea or vomiting Denies any cough Denies any weakness or numbness.. Review of Systems Review of Systems: As above. Yes all other systems are reviewed and are negative [facility] Medical History Chronic post-traumatic stress disorder (PTSD) Opioid use disorder Polysubstance (including opioids) dependence w/o physiol dependence Schizoaffective disorder, depressive type Family History Other Polysubstance (including opioids) dependence w/o physiol dependence Pertinent family history: Father has diabetes, no similar symptoms in the family. Social History Household Members: None Housing: Homeless Do you presently have visiting nurse or other home services: No Patient Tobacco Use Status: Current everyday Tobacco user Tobacco use type: Cigarette Cigarettes Per Day: 4 e-Cigarette/Vaping Use: Never Used Second Hand Smoke Exposure: No Use of substances other than those prescribed or required for medical reasons: No Substance Use Type: Crack/Cocaine, Heroin, IV Drugs and Marijuana Advance Directives: No service: Yes ([employer] [id number]) Sexual orientation: Did not discuss Meds Allergies Allergy/AdvReac Type Severity Reaction Status Date / Time No Known Allergies Allergy Verified 01/27/21 21:53 Active Medications: Current Medications Acetaminophen (Acetaminophen 325 Mg Tablet) 650 mg PO Q6H PRN PRN Reason: Pain, Mild (Pain Scale 1-3) Aripiprazole (Aripiprazole 15 Mg Tablet) 15 mg PO DAILY FOR[facility]LY [facility] Buspirone HCl (Buspirone Hcl 10 Mg Tablet) 10 mg PO TID FOR[facility] Docusate Sodium (Docusate Sodium 100 Mg Capsule) 100 mg PO DAILY PRN PRN Reason: Constipation Enoxaparin Sodium (Enoxaparin Sodium 40 Mg/0.4 Ml Syringe) 40 mg SUBCUT Q24H FOR[facility]1983 Sodium Chloride (Ns) 1,000 mls @ 999 mls/hr IVCONT .Q1H1M CANDIDO Stop: 06/18/21 16:45 Last Admin: 06/18/21 15:44 Dose: 999 mls/hr Documented by: Lactated Ringer's (Lr) 1,000 mls @ 100 mls/hr IVCONT .Q10H [facility] Loratadine (Loratadine 10 Mg Tablet) 10 mg PO DAILY [facility] Methadone HCl (Methadone Hcl 20 Mg/2 Ml Oral.Conc) 60 mg PO DAILY [facility] Ondansetron HCl (Ondansetron Hcl 4 Mg/2 Ml Vial) 4 mg IVPUSH Q8H PRN PRN Reason: Nausea and Vomiting Pharmacy Consult (Consult Rx Perform Med Rec) 1 each MISCELLANE ONCE PRN PRN Reason: Consult order Sertraline HCl (Sertraline Hcl 100 Mg Tablet) 100 mg PO DAILY FOR[facility] Sodium Chloride (0.9 % Sodium Chloride Flush 3 Ml Syringe) 3 ml IVFLUSH QSHIFT FOR[facility] Home Medications Medication Instructions Recorded Confirmed Last Taken Type aripiprazole 15 mg tablet (Abilify) 15 mg PO DAILY 06/18/21 06/18/21 06/17/21 History buspirone 10 mg tablet 1 tab PO TID 06/18/21 06/18/21 06/17/21 History clonidine HCl 0.1 mg tablet 1 tab PO BID 06/18/21 06/18/21 06/17/21 History loratadine 10 mg tablet 1 tab PO DAILY 06/18/21 06/18/21 06/17/21 History methadone 10 mg/mL oral 60 mg PO DAILY 06/18/21 06/18/21 06/18/21 History concentrate (Methadose) prazosin 5 mg capsule 1 cap PO BEDTIME 06/18/21 06/18/21 06/17/21 History sertraline 100 mg tablet 100 mg PO DAILY 06/18/21 06/18/21 06/17/21 History Physical Exam Vital Signs and Narrative: Vital Signs: Last Vital Signs Temp 98.8 F 06/18/21 12:15 Pulse 62 06/18/21 15:21 Resp 12 06/18/21 13:34 BP 103/67 06/18/21 15:21 Pulse Ox 99 06/18/21 13:34 Body Mass Index 23.1 Physical exam: Appearance: Alert.? Oriented X3.? not in distress.? Eyes: Pupils equal, round and reactive to light.? Sclera nonicteric.? ENT: Pharynx normal.? Moist mucous membranes. cvs: [id number],, [id number] , no murmur res: clear to auscultation ,no rhonchii or wheezing abd: no rebound or guarding ,nt, bs present. ext pulses present , no cyanosis ,feels dizzy with standing up. neuro: axo3 , nonfocal. Results Labs CBC and Chem 7: 06/18/21 11:32 06/18/21 11:32 Labs: Laboratory Results - last 24 hr 06/18/21 06/18/21 06/18/21 11:32 11:32 11:32 MCV 83.2 MCH 27.9 MCHC 33.5 RDW 11.9 Plt Count 185 D MPV 10.3 Immature Gran % (Auto) 0.3 Neut % (Auto) 67.6 Lymph % (Auto) 23.4 [place] % (Auto) 5.6 Eos % (Auto) 2.7 Baso % (Auto) 0.4 Lymph # (Auto) 1.8 [place] # (Auto) 0.4 Eos # (Auto) 0.2 Baso # (Auto) 0.0 Abs Immat Gran (auto) 0.02 Absolute Neuts (auto) 5.2 Absolute Nucleated RBC 0.000 Nucleated RBC % (auto) 0.0 D-Dimer Anion Gap 10 L Estim Creat Clear Calc 127.4 Estimated GFR > 60 POC Glucose Random Glucose 106 Calcium 9.6 Magnesium 2.0 Total Bilirubin 0.5 Direct Bilirubin 0.3 AST 43 H ALT 107 H Alkaline Phosphatase 116 Total Protein 7.5 Albumin 4.2 Urine Color Urine Appearance Urine pH Ur Specific [place] Urine Protein Urine Glucose (UA) Urine Ketones Urine Blood Urine Nitrite Ur Leukocyte Esterase Urine Opiates Screen Urine Fentanyl Screen Ur Barbiturates Screen Ur Phencyclidine Scrn Ur Amphetamines Screen U Benzodiazepines Scrn Urine Cocaine Screen U Marijuana (THC) Screen Ethyl Alcohol COVID-19 ([facility]) Negative COVID-19 Clin Com See Note 06/18/21 06/18/21 06/18/21 11:32 11:32 15:27 MCV MCH MCHC RDW Plt Count MPV Immature Gran % (Auto) Neut % (Auto) Lymph % (Auto) [place] % (Auto) Eos % (Auto) Baso % (Auto) Lymph # (Auto) [place] # (Auto) Eos # (Auto) Baso # (Auto) Abs Immat Gran (auto) Absolute Neuts (auto) Absolute Nucleated RBC Nucleated RBC % (auto) D-Dimer < 200 Anion Gap Estim Creat Clear Calc Estimated GFR POC Glucose 118 H Random Glucose Calcium Magnesium Total Bilirubin Direct Bilirubin AST ALT Alkaline Phosphatase Total Protein Albumin Urine Color Urine Appearance Urine pH Ur Specific [place] Urine Protein Urine Glucose (UA) Urine Ketones Urine Blood Urine Nitrite Ur Leukocyte Esterase Urine Opiates Screen Urine Fentanyl Screen Ur Barbiturates Screen Ur Phencyclidine Scrn Ur Amphetamines Screen U Benzodiazepines Scrn Urine Cocaine Screen U Marijuana (THC) Screen Ethyl Alcohol < 10 COVID-19 ([facility]) COVID-19 Clin Com 06/18/21 06/18/21 15:51 15:51 MCV MCH MCHC RDW Plt Count MPV Immature Gran % (Auto) Neut % (Auto) Lymph % (Auto) [place] % (Auto) Eos % (Auto) Baso % (Auto) Lymph # (Auto) [place] # (Auto) Eos # (Auto) Baso # (Auto) Abs Immat Gran (auto) Absolute Neuts (auto) Absolute Nucleated RBC Nucleated RBC % (auto) D-Dimer Anion Gap Estim Creat Clear Calc Estimated GFR POC Glucose Random Glucose Calcium Magnesium Total Bilirubin Direct Bilirubin AST ALT Alkaline Phosphatase Total Protein Albumin Urine Color STRAW Urine Appearance CLEAR Urine pH 6.0 Ur Specific [place] <= 1.005 Urine Protein NEG Urine Glucose (UA) NEG Urine Ketones NEG Urine Blood NEG Urine Nitrite NEG Ur Leukocyte Esterase NEG Urine Opiates Screen Not Detected Urine Fentanyl Screen Not Detected Ur Barbiturates Screen Not Detected Ur Phencyclidine Scrn Not Detected Ur Amphetamines Screen Not Detected U Benzodiazepines Scrn Not Detected Urine Cocaine Screen Not Detected U Marijuana (THC) Screen Not Detected Ethyl Alcohol COVID-19 ([facility]) COVID-19 Clin Com Imaging Radiologist's Impressions: Impressions Head CT 06/18/21 11:20 IMPRESSION: No acute intracranial pathology. Assessment and Plan (1) Orthostatic hypotension: Status: Acute (2) Bradycardia, sinus: Status: Acute (3) Multiple falls: Status: Acute (4) Opioid use disorder: Status: Chronic 1. orthostatic hypotension/question of symptomatic bradycardia sinus wilber with av block 1 degree qtc 428 denies any chest pain Already received 2-3 L of fluid from ED Will continue IV fluid 100 mL/hour Monitor blood pressure,Monitor orthostasis, tele [place] stockings hold clonidine/prazosin Cardio evaluation 2. Schizoaffective dis/depression/ptsd: Continue Abilify, buspirone, sertraline 3. Drug use history: U tox Continue methadone DVT : SubQ Lovenox Quality Stroke Does the patient have a stroke diagnosis?: No VTE Prior VTE?: No VTE Risk Level:: Medical - moderate - high VTE Device Contraindication: N/A - Device Ordered VTE Drug Contraindication: N/A - Med Ordered
[2021-06-18] MEDS: Lactated Ringers 1,000 ML 100 ML IVCONT (16:34)
[2021-06-18 17:21] LABS: Estimated Average Glucose 108 mg/dL; Hemoglobin A1c % 5.4 %
[2021-06-18] MEDS: Enoxaparin Sodium 40 MG/0.4 ML SYRINGE SUBCUT (19:37)
--- NOTE | 2021-06-18 20:22 | PC.NURSE ---
PT REPORT GIVEN TO RN ON FLOOR. PT UNDERSTANDS TO USE URINAL AT BEDSIDE OT ASK FOR ASSISTANCE TO BATHROOM, ONCE HE'S IN HIS ROOM ON THE FLOOR.
[2021-06-18] MEDS: busPIRone HCl 10 MG TABLET PO (21:12)
[2021-06-19] VITALS (12 sets, daily range): BP systolic 70–136; BP diastolic 42–78; PULSE 47–80; RESP 18–20; TEMP 36.3–37; O2SAT 95–99
--- NOTE | 2021-06-19 | ECG_ITS ---
Test Reason : Bradycardia Blood Pressure : / mmHG Vent. Rate : 057 BPM Atrial Rate : 057 BPM P-R Int : 184 ms QRS Dur : 080 ms QT Int : 470 ms P-R-T Axes : 077 042 047 degrees QTc Int : 457 ms Sinus bradycardia Otherwise normal ECG Heart rate has increased Referred By: Anisa White Electronically Signed By:JEANIE CONRAD MD
[2021-06-19] MEDS: Lactated Ringers 1,000 ML 100 ML IVCONT (01:24)
[2021-06-19 05:46] LABS: Hematocrit 39.4 % (42-52); Hemoglobin 13.3 g/dl (14.0-18.0); Mean Corpuscular HGB Conc 33.8 g/dl (31.0-36.0); Mean Corpuscular Hemoglobin 27.9 pg (27.0-33.0); Mean Corpuscular Volume 82.8 fL (80-98); Platelet Count 171 X10*3/uL (160-400); Red Blood Count 4.76 X10*6/uL (4.60-5.80); Red Cell Distribution Width 12.1 % (11.0-16.0); White Blood Count 6.5 X10*3/uL (4.8-10.8)
[2021-06-19 06:06] LABS: Anion Gap 11 (12-20); Blood Urea Nitrogen 8 mg/dL (9-16); Calcium 9.1 mg/dL (8.4-10.2); Carbon Dioxide 25 mmol/L (22-29); Chloride 107 mmol/L (96-108); Creatinine Clr Calc Pharmacy 160.4; Estimated Glomerular Filt Rate > 60; Glucose Random 83 mg/dL (60-115); Potassium 3.9 mmol/L (3.3-5.1); Sodium 139 mmol/L (135-145)
[2021-06-19] MEDS: ARIPiprazole 15 MG TABLET PO (07:55)
[2021-06-19] MEDS: Loratadine 10 MG TABLET PO (07:55)
[2021-06-19] MEDS: busPIRone HCl 10 MG TABLET PO ×3 (07:55→20:17)
[2021-06-19] MEDS: Sertraline HCL 100 MG TABLET PO (07:56)
[2021-06-19] MEDS: 0.9 % Sodium Chloride 1,000 ML 999 ML IVCONT ×2 (07:56→09:11)
[2021-06-19] MEDS: methADONE HCl 20 MG/2 ML ORAL.CONC 70 MG PO (10:25)
--- NOTE | 2021-06-19 10:35 | PM.CNCAR ---
History of Present Illness History of Present Illness Date of Service: 06/19/21 Chief complaint: Syncope, symptomatic bradycardia Narrative: This is a cardiology consultation regarding syncope and low blood pressure. Patient has a history of schizoaffective disorder, PTSD and depression. He was admitted for symptoms of feeling dizzy and blacking out episodes. His orthostatic blood pressures are abnormal. Otherwise from cardiac standpoint no known cardiac issues. No cardiomyopathy or in fact any other cardiac concerns according to patient. At this time, he denies any chest pains of any type of shortness of breath or any other cardiac complaints. Some orthostatic type symptoms every now and then but not always. He could be standing when all of a sudden the symptoms may happen. In his medications, he is on clonidine and prazosin but he cannot recall when this was started but believes might be recent. Review of Systems Review of Systems: Yes all other systems are reviewed and are negative Cardiovascular: Cardiovascular: Reports as per HPI, Reports no additional cardiovascular complaints, Denies acrocyanosis, Denies cool extremities, Denies painful fingertips, Denies chest pain, Denies chest pain at rest, Denies diaphoresis, Denies syncope, Denies irregular heart rhythm, Denies claudication, Denies leg edema, Reports lightheadedness, Denies palpitations and Denies dyspnea Respiratory: Respiratory: Denies dyspnea Neurologic: Denies syncope Endocrine: Endocrine: Denies palpitations PMFSH Past Medical History Medical History Chronic post-traumatic stress disorder (PTSD) Opioid use disorder Polysubstance (including opioids) dependence w/o physiol dependence Schizoaffective disorder, depressive type Family History Family History Other Polysubstance (including opioids) dependence w/o physiol dependence Social History Social History Household Members: Family Housing: House Patient Tobacco Use Status: Current everyday Tobacco user Tobacco use type: Cigarette Cigarette Packs Per Day: 0.25 Cigarettes Per Day: 5.0 e-Cigarette/Vaping Use: Never Used Patient Interested in Nicotine Replacement: No Second Hand Smoke Exposure: No Use of substances other than those prescribed or required for medical reasons: No Substance Use Type: Crack/Cocaine, Heroin, IV Drugs and Marijuana Currently Displaying Signs/Symptoms of Drug Intoxication Withdrawal: No Have you been hit, kicked, punched, or otherwise hurt by someone within the past year? If so, by whom?: No Do you feel safe in your current relationship?: Yes Is there a partner from a previous relationship who is making you feel unsafe now?: No Are you made to feel afraid or neglected: No Advance Directives: No Do you have thoughts of harming others: None Do you have a plan to hurt others: No Plan Recently lost weight without trying: No Nutrition Risks: No Nutritional Risk Poor oral hygiene: No service: Yes ([employer] [id number]) Sexual orientation: Did not discuss Meds Allergies Allergy/AdvReac Type Severity Reaction Status Date / Time No Known Allergies Allergy Verified 01/27/21 21:53 Active Medications: Current Medications Acetaminophen (Acetaminophen 325 Mg Tablet) 650 mg PO Q6H PRN PRN Reason: Pain, Mild (Pain Scale 1-3) Aripiprazole (Aripiprazole 15 Mg Tablet) 15 mg PO DAILY [facility], [facility] Last Admin: 06/19/21 07:55 Dose: 15 mg Documented by: Buspirone HCl (Buspirone Hcl 10 Mg Tablet) 10 mg PO TID [facility] Last Admin: 06/19/21 07:55 Dose: 10 mg Documented by: Docusate Sodium (Docusate Sodium 100 Mg Capsule) 100 mg PO DAILY PRN PRN Reason: Constipation Enoxaparin Sodium (Enoxaparin Sodium 40 Mg/0.4 Ml Syringe) 40 mg SUBCUT Q24H [facility] Last Admin: 06/18/21 19:37 Dose: 40 mg Documented by: Loratadine (Loratadine 10 Mg Tablet) 10 mg PO DAILY [facility] Last Admin: 06/19/21 07:55 Dose: 10 mg Documented by: Methadone HCl (Methadone Hcl 20 Mg/2 Ml Oral.Conc) 70 mg PO DAILY [facility] Last Admin: 06/19/21 10:25 Dose: 70 mg Documented by: Ondansetron HCl (Ondansetron Hcl 4 Mg/2 Ml Vial) 4 mg IVPUSH Q8H PRN PRN Reason: Nausea and Vomiting Pharmacy Consult (Consult Rx Perform Med Rec) 1 each MISCELLANE ONCE PRN PRN Reason: Consult order Sertraline HCl (Sertraline Hcl 100 Mg Tablet) 100 mg PO DAILY [facility] Last Admin: 06/19/21 07:56 Dose: 100 mg Documented by: Sodium Chloride (0.9 % Sodium Chloride Flush 3 Ml Syringe) 3 ml IVFLUSH QSHIFT [facility] Last Admin: 06/18/21 21:16 Dose: Not Given Documented by: Home Medications Medication Instructions Recorded Confirmed Last Taken Type aripiprazole 15 mg tablet (Abilify) 15 mg PO DAILY 06/18/21 06/18/21 06/17/21 History buspirone 10 mg tablet 1 tab PO TID 06/18/21 06/18/21 06/17/21 History clonidine HCl 0.1 mg tablet 1 tab PO BID 06/18/21 06/18/21 06/17/21 History loratadine 10 mg tablet 1 tab PO DAILY 06/18/21 06/18/21 06/17/21 History methadone 10 mg/mL oral 68 mg PO DAILY 06/18/21 06/19/21 06/18/21 History concentrate (Methadose) prazosin 5 mg capsule 1 cap PO BEDTIME 06/18/21 06/18/21 06/17/21 History sertraline 100 mg tablet 100 mg PO DAILY 06/18/21 06/18/21 06/17/21 History Physical Exam Vital Signs: Vital Signs: Last Vital Signs Temp 98 F 06/19/21 06:57 Pulse 47 L 06/19/21 09:06 Resp 18 06/19/21 06:57 BP 70/42 L 06/19/21 07:22 Pulse Ox 98 06/19/21 06:57 Body Mass Index 23.2 Const: General: cooperative and no acute distress HENMT: Other: Unremarkable Neck: Neck: Yes normal visual inspection Chest: Chest palpation & inspection: normal inspection of the chest Resp: Auscultation: clear to auscultation bilaterally, no crackles and no wheezes Cardio: Jugular venous distension: no JVD Palpation: normal PMI Heart sounds: S1 normal heart sound present, S2 normal heart sound present, no gallops, no murmurs and no rubs GI: Palpation (GI): Soft to palpation Back/Spine/Pelvis: Other: unremarkable Skin: General skin exam: no rashes or lesions noted Neuro: Cranial nerves: Yes Other cranial nerve findings present Extrem: General: Yes no clubbing, cyanosis or edema Psych: Mental Status: other Results Labs and Meds Result diagrams: 06/19/21 04:57 06/19/21 04:57 Lab results: Laboratory Results - last 24 hr 06/18/21 06/18/21 06/18/21 11:32 11:32 11:32 WBC 7.6 RBC 5.31 Hgb 14.8 Hct 44.2 MCV 83.2 MCH 27.9 MCHC 33.5 RDW 11.9 Plt Count 185 D MPV 10.3 Immature Gran % (Auto) 0.3 Neut % (Auto) 67.6 Lymph % (Auto) 23.4 [place] % (Auto) 5.6 Eos % (Auto) 2.7 Baso % (Auto) 0.4 Lymph # (Auto) 1.8 [place] # (Auto) 0.4 Eos # (Auto) 0.2 Baso # (Auto) 0.0 Abs Immat Gran (auto) 0.02 Absolute Neuts (auto) 5.2 Absolute Nucleated RBC 0.000 Nucleated RBC % (auto) 0.0 D-Dimer Sodium 134 L Potassium 3.9 Chloride 100 Carbon Dioxide 28 Anion Gap 10 L BUN 10 Creatinine 0.89 Estim Creat Clear Calc 127.4 Estimated GFR > 60 POC Glucose Random Glucose 106 Estimat Average Glucose Hemoglobin A1c % Calcium 9.6 Magnesium 2.0 Total Bilirubin 0.5 Direct Bilirubin 0.3 AST 43 H ALT 107 H Alkaline Phosphatase 116 Total Creatine Kinase 70 Total Protein 7.5 Albumin 4.2 Urine Color Urine Appearance Urine pH Ur Specific [place] Urine Protein Urine Glucose (UA) Urine Ketones Urine Blood Urine Nitrite Ur Leukocyte Esterase Urine Opiates Screen Urine Fentanyl Screen Ur Barbiturates Screen Ur Phencyclidine Scrn Ur Amphetamines Screen U Benzodiazepines Scrn Urine Cocaine Screen U Marijuana (THC) Screen Ethyl Alcohol COVID-19 ([facility]) Negative COVID-19 Clin Com See Note 06/18/21 06/18/21 06/18/21 11:32 11:32 11:32 WBC RBC Hgb Hct MCV MCH MCHC RDW Plt Count MPV Immature Gran % (Auto) Neut % (Auto) Lymph % (Auto) [place] % (Auto) Eos % (Auto) Baso % (Auto) Lymph # (Auto) [place] # (Auto) Eos # (Auto) Baso # (Auto) Abs Immat Gran (auto) Absolute Neuts (auto) Absolute Nucleated RBC Nucleated RBC % (auto) D-Dimer < 200 Sodium Potassium Chloride Carbon Dioxide Anion Gap BUN Creatinine Estim Creat Clear Calc Estimated GFR POC Glucose Random Glucose Estimat Average Glucose 108 Hemoglobin A1c % 5.4 Calcium Magnesium Total Bilirubin Direct Bilirubin AST ALT Alkaline Phosphatase Total Creatine Kinase Total Protein Albumin Urine Color Urine Appearance Urine pH Ur Specific [place] Urine Protein Urine Glucose (UA) Urine Ketones Urine Blood Urine Nitrite Ur Leukocyte Esterase Urine Opiates Screen Urine Fentanyl Screen Ur Barbiturates Screen Ur Phencyclidine Scrn Ur Amphetamines Screen U Benzodiazepines Scrn Urine Cocaine Screen U Marijuana (THC) Screen Ethyl Alcohol < 10 COVID-19 ([facility]) COVID-19 [facility] 06/18/21 06/18/21 06/18/21 15:27 15:51 15:51 WBC RBC Hgb Hct MCV MCH MCHC RDW Plt Count MPV Immature Gran % (Auto) Neut % (Auto) Lymph % (Auto) [place] % (Auto) Eos % (Auto) Baso % (Auto) Lymph # (Auto) [place] # (Auto) Eos # (Auto) Baso # (Auto) Abs Immat Gran (auto) Absolute Neuts (auto) Absolute Nucleated RBC Nucleated RBC % (auto) D-Dimer Sodium Potassium Chloride Carbon Dioxide Anion Gap BUN Creatinine Estim Creat Clear Calc Estimated GFR POC Glucose 118 H Random Glucose Estimat Average Glucose Hemoglobin A1c % Calcium Magnesium Total Bilirubin Direct Bilirubin AST ALT Alkaline Phosphatase Total Creatine Kinase Total Protein Albumin Urine Color STRAW Urine Appearance CLEAR Urine pH 6.0 Ur Specific [place] <= 1.005 Urine Protein NEG Urine Glucose (UA) NEG Urine Ketones NEG Urine Blood NEG Urine Nitrite NEG Ur Leukocyte Esterase NEG Urine Opiates Screen Not Detected Urine Fentanyl Screen Not Detected Ur Barbiturates Screen Not Detected Ur Phencyclidine Scrn Not Detected Ur Amphetamines Screen Not Detected U Benzodiazepines Scrn Not Detected Urine Cocaine Screen Not Detected U Marijuana (THC) Screen Not Detected Ethyl Alcohol COVID-19 ([facility]) This Week In 06/19/21 06/19/21 06/19/21 04:57 04:57 04:57 WBC Cancelled 6.5 RBC Cancelled 4.76 Hgb Cancelled 13.3 L Hct Cancelled 39.4 L MCV Cancelled 82.8 MCH Cancelled 27.9 MCHC Cancelled 33.8 RDW Cancelled 12.1 Plt Count Cancelled 171 MPV Cancelled 11.0 Immature Gran % (Auto) Neut % (Auto) Lymph % (Auto) [place] % (Auto) Eos % (Auto) Baso % (Auto) Lymph # (Auto) [place] # (Auto) Eos # (Auto) Baso # (Auto) Abs Immat Gran (auto) Absolute Neuts (auto) Absolute Nucleated RBC Cancelled 0.000 Nucleated RBC % (auto) Cancelled 0.0 D-Dimer Sodium 139 Potassium 3.9 Chloride 107 Carbon Dioxide 25 Anion Gap 11 L BUN 8 L Creatinine 0.71 Estim Creat Clear Calc 160.4 Estimated GFR > 60 POC Glucose Random Glucose 83 Estimat Average Glucose Hemoglobin A1c % Calcium 9.1 Magnesium Total Bilirubin Direct Bilirubin AST ALT Alkaline Phosphatase Total Creatine Kinase Total Protein Albumin Urine Color Urine Appearance Urine pH Ur Specific [place] Urine Protein Urine Glucose (UA) Urine Ketones Urine Blood Urine Nitrite Ur Leukocyte Esterase Urine Opiates Screen Urine Fentanyl Screen Ur Barbiturates Screen Ur Phencyclidine Scrn Ur Amphetamines Screen U Benzodiazepines Scrn Urine Cocaine Screen U Marijuana (THC) Screen Ethyl Alcohol COVID-19 ([facility]) COVID-19 Clin Com ECG Interpretation: EKG from January shows sinus rhythm at 71/Min; early repolarization by changes; normal HI/QTc. Imaging Radiologist's impression: Impressions Head CT 06/18/21 11:20 IMPRESSION: No acute intracranial pathology. Assessment and Plan (1) Orthostatic hypotension: Status: Acute (2) Pre-syncope: Status: Acute (3) Schizoaffective disorder, depressive type: Status: Chronic (4) Chronic post-traumatic stress disorder (PTSD): Status: Chronic Orthostatic blood pressures reviewed; 118/50 mm Hg; 78/47 mm Hg and 70/40 mm Hg. Other blood pressures seem mostly normal range. Under medications he is taking, clonidine and prazosin can lower blood pressures and caused the septum symptoms. We can hold him and recheck orthostatics. Repeat EKG. Will follow-up. Procedures Date of Service Date of Service: 06/19/21
--- NOTE | 2021-06-19 10:50 | MHC.CM.PN ---
Lives with parents at home. No prior services, no equipment, fully independent. Does not drive, parents drive him or he takes the bus where he needs to go. Plan is home at D/C via parents. CM to follow.
--- NOTE | 2021-06-19 11:44 | P.PNIM_ITS ---
Subjective Subjective Date of Service: 06/19/21 Interval History: Orthostatic hypotension, bradycardia Review of Systems Patient still feel dizzy with walking. Denies any chest pain or shortness of breath or palpitations. Denies any fever or chills. Physical Exam Vital Signs: Vital Signs: Last Vital Signs Temp 98.4 F 06/19/21 11:14 Pulse 55 06/19/21 11:14 Resp 18 06/19/21 11:14 BP 114/65 06/19/21 11:14 Pulse Ox 98 06/19/21 11:14 Body Mass Index 23.2 Physical exam: Appearance: Alert.? Oriented X3.? not in distress.? Eyes: Pupils equal, round and reactive to light.? Sclera nonicteric.? ENT: Pharynx normal.? Moist mucous membranes. cvs: rrr, [id number] , no murmur res: clear to auscultation ,no rhonchii or wheezing abd: no rebound or guarding ,nt, bs present. ext pulses present , no cyanosis ,Gait well balanced well coordinated. neuro: axo3 , nonfocal. Objective Data Active Medications Acetaminophen (Acetaminophen 325 Mg Tablet) 650 mg PO Q6H PRN PRN Reason: Pain, Mild (Pain Scale 1-3) Aripiprazole (Aripiprazole 15 Mg Tablet) 15 mg PO DAILY [facility] Last Admin: 06/19/21 07:55 Dose: 15 mg Documented by: PHUONG Buspirone HCl (Buspirone Hcl 10 Mg Tablet) 10 mg PO TID [facility] Last Admin: 06/19/21 07:55 Dose: 10 mg Documented by: PHUONG Docusate Sodium (Docusate Sodium 100 Mg Capsule) 100 mg PO DAILY PRN PRN Reason: Constipation Enoxaparin Sodium (Enoxaparin Sodium 40 Mg/0.4 Ml Syringe) 40 mg SUBCUT Q24H [facility] Last Admin: 06/18/21 19:37 Dose: 40 mg Documented by: ALOK Loratadine (Loratadine 10 Mg Tablet) 10 mg PO DAILY [facility] Last Admin: 06/19/21 07:55 Dose: 10 mg Documented by: PHUONG Methadone HCl (Methadone Hcl 20 Mg/2 Ml Oral.Conc) 70 mg PO DAILY [facility] Last Admin: 06/19/21 10:25 Dose: 70 mg Documented by: PHUONG Ondansetron HCl (Ondansetron Hcl 4 Mg/2 Ml Vial) 4 mg IVPUSH Q8H PRN PRN Reason: Nausea and Vomiting Pharmacy Consult (Consult Rx Perform Med Rec) 1 each MISCELLANE ONCE PRN PRN Reason: Consult order Sertraline HCl (Sertraline Hcl 100 Mg Tablet) 100 mg PO DAILY [facility] Last Admin: 06/19/21 07:56 Dose: 100 mg Documented by: PHUONG Sodium Chloride (0.9 % Sodium Chloride Flush 3 Ml Syringe) 3 ml IVFLUSH QSHIFT [facility] Last Admin: 06/18/21 21:15 Dose: Not Given Documented by: JOSSELINE Non-Admin Reason: IV Running Labs CBC & Chem 7: 06/19/21 04:57 06/19/21 04:57 Labs: Laboratory Results - last 24 hr 06/18/21 06/18/21 06/18/21 11:32 11:32 11:32 MCV MCH MCHC RDW Plt Count MPV Absolute Nucleated RBC Nucleated RBC % (auto) D-Dimer Anion Gap 10 L Estim Creat Clear Calc 127.4 Estimated GFR > 60 POC Glucose Random Glucose 106 Estimat Average Glucose Hemoglobin A1c % Calcium 9.6 Magnesium 2.0 Total Bilirubin 0.5 Direct Bilirubin 0.3 AST 43 H ALT 107 H Alkaline Phosphatase 116 Total Creatine Kinase 70 Total Protein 7.5 Albumin 4.2 Urine Color Urine Appearance Urine pH Ur Specific [place] Urine Protein Urine Glucose (UA) Urine Ketones Urine Blood Urine Nitrite Ur Leukocyte Esterase Urine Opiates Screen Urine Fentanyl Screen Ur Barbiturates Screen Ur Phencyclidine Scrn Ur Amphetamines Screen U Benzodiazepines Scrn Urine Cocaine Screen U Marijuana (THC) Screen Ethyl Alcohol < 10 COVID-19 ([facility]) Negative COVID-19 Clin Com See Note 06/18/21 06/18/21 06/18/21 11:32 11:32 15:27 MCV MCH MCHC RDW Plt Count MPV Absolute Nucleated RBC Nucleated RBC % (auto) D-Dimer < 200 Anion Gap Estim Creat Clear Calc Estimated GFR POC Glucose 118 H Random Glucose Estimat Average Glucose 108 Hemoglobin A1c % 5.4 Calcium Magnesium Total Bilirubin Direct Bilirubin AST ALT Alkaline Phosphatase Total Creatine Kinase Total Protein Albumin Urine Color Urine Appearance Urine pH Ur Specific [place] Urine Protein Urine Glucose (UA) Urine Ketones Urine Blood Urine Nitrite Ur Leukocyte Esterase Urine Opiates Screen Urine Fentanyl Screen Ur Barbiturates Screen Ur Phencyclidine Scrn Ur Amphetamines Screen U Benzodiazepines Scrn Urine Cocaine Screen U Marijuana (THC) Screen Ethyl Alcohol COVID-19 ([facility]) COVID-19 [employer] 06/18/21 06/18/21 06/19/21 15:51 15:51 04:57 MCV Cancelled MCH Cancelled MCHC Cancelled RDW Cancelled Plt Count Cancelled MPV Cancelled Absolute Nucleated RBC Cancelled Nucleated RBC % (auto) Cancelled D-Dimer Anion Gap Estim Creat Clear Calc Estimated GFR POC Glucose Random Glucose Estimat Average Glucose Hemoglobin A1c % Calcium Magnesium Total Bilirubin Direct Bilirubin AST ALT Alkaline Phosphatase Total Creatine Kinase Total Protein Albumin Urine Color STRAW Urine Appearance CLEAR Urine pH 6.0 Ur Specific [place] <= 1.005 Urine Protein NEG Urine Glucose (UA) NEG Urine Ketones NEG Urine Blood NEG Urine Nitrite NEG Ur Leukocyte Esterase NEG Urine Opiates Screen Not Detected Urine Fentanyl Screen Not Detected Ur Barbiturates Screen Not Detected Ur Phencyclidine Scrn Not Detected Ur Amphetamines Screen Not Detected U Benzodiazepines Scrn Not Detected Urine Cocaine Screen Not Detected U Marijuana (THC) Screen Not Detected Ethyl Alcohol COVID-19 ([facility]) [employer] 06/19/21 06/19/21 04:57 04:57 MCV 82.8 MCH 27.9 MCHC 33.8 RDW 12.1 Plt Count 171 MPV 11.0 Absolute Nucleated RBC 0.000 Nucleated RBC % (auto) 0.0 D-Dimer Anion Gap 11 L Estim Creat Clear Calc 160.4 Estimated GFR > 60 POC Glucose Random Glucose 83 Estimat Average Glucose Hemoglobin A1c % Calcium 9.1 Magnesium Total Bilirubin Direct Bilirubin AST ALT Alkaline Phosphatase Total Creatine Kinase Total Protein Albumin Urine Color Urine Appearance Urine pH Ur Specific [place] Urine Protein Urine Glucose (UA) Urine Ketones Urine Blood Urine Nitrite Ur Leukocyte Esterase Urine Opiates Screen Urine Fentanyl Screen Ur Barbiturates Screen Ur Phencyclidine Scrn Ur Amphetamines Screen U Benzodiazepines Scrn Urine Cocaine Screen U Marijuana (THC) Screen Ethyl Alcohol COVID-19 ([facility]) [employer] Assessment and Plan (1) Orthostatic hypotension: Status: Acute (2) Bradycardia, sinus: Status: Acute Assessment and Plan: 1. orthostatic hypotension/question of symptomatic bradycardia sinus wilber with av block 1 degree qtc 428 denies any chest pain Already received 2-3 L of fluid from ED Will continue IV fluid 100 mL/hour Monitor blood pressure,Monitor orthostasis, tele [place] stockings hold clonidine/prazosin admission ekg missing , will add another ekg now. Cardio evaluation noted -continue ivf , echo,ekg now 2. Schizoaffective dis/depression/ptsd: Continue Abilify, buspirone, sertraline 3. Drug use history: U tox Continue methadone DVT :? SubQ Lovenox Quality Stroke Does the patient have a stroke diagnosis?: No VTE Prior VTE?: No VTE Risk Level:: Medical - moderate - high VTE Device Contraindication: N/A - Device Ordered VTE Drug Contraindication: N/A - Med Ordered
[2021-06-19] MEDS: 0.9 % Sodium Chloride 1,000 ML 100 ML IVCONT ×2 (14:47→23:29)
[2021-06-19] MEDS: 0.9 % Sodium Chloride Flush 3 ML SYRINGE IVFLUSH (14:53)
[2021-06-19] MEDS: Enoxaparin Sodium 40 MG/0.4 ML SYRINGE SUBCUT (20:16)
[2021-06-20 03:58] VITALS: BP 126/78; PULSE 56; RESP 18; TEMP 36.7; O2SAT 98
[2021-06-20 07:49] LABS: Anion Gap 10 (12-20); Blood Urea Nitrogen 5 mg/dL (9-16); Calcium 9.1 mg/dL (8.4-10.2); Carbon Dioxide 25 mmol/L (22-29); Chloride 108 mmol/L (96-108); Creatinine Clr Calc Pharmacy 147.9; Estimated Glomerular Filt Rate > 60; Glucose Random 89 mg/dL (60-115); Sodium 139 mmol/L (135-145)
[2021-06-20 07:54] VITALS: BP 128/78; PULSE 53; RESP 18; TEMP 36.8; O2SAT 98
--- NOTE | 2021-06-20 08:03 | HO.PM.IMPN ---
Subjective Subjective Date of Service: 06/20/21 Interval History: Orthostatic hypertension Review of Systems Still feel dizzy with walking, feel tired. Denies any new complaint of chest pain or shortness of breath or abdominal pain or fever or chills or nausea or vomiting Denies any cough Denies any weakness or numbness. Physical Exam Vital Signs: Vital Signs: Last Vital Signs Temp 98.2 F 06/20/21 07:54 Pulse 53 06/20/21 07:54 Resp 18 06/20/21 07:54 BP 128/78 06/20/21 07:54 Pulse Ox 98 06/20/21 07:54 Body Mass Index 23.2 Appearance: Alert.? Oriented X3.? not in distress.? Eyes: Pupils equal, round and reactive to light.? Sclera nonicteric.? ENT: Pharynx normal.? Moist mucous membranes. cvs: rrr, [id number] , no murmur res: clear to auscultation ,no rhonchii or wheezing abd: no rebound or guarding ,nt, bs present. ext pulses present , no cyanosis ,Gait well balanced well coordinated. neuro: axo3 , nonfocal. Objective Data Active Medications Acetaminophen (Acetaminophen 325 Mg Tablet) 650 mg PO Q6H PRN PRN Reason: Pain, Mild (Pain Scale 1-3) Aripiprazole (Aripiprazole 15 Mg Tablet) 15 mg PO DAILY [facility] Last Admin: 06/19/21 07:55 Dose: 15 mg Documented by: PHUONG Buspirone HCl (Buspirone Hcl 10 Mg Tablet) 10 mg PO TID [facility] Last Admin: 06/19/21 20:17 Dose: 10 mg Documented by: PHUONG Docusate Sodium (Docusate Sodium 100 Mg Capsule) 100 mg PO DAILY PRN PRN Reason: Constipation Enoxaparin Sodium (Enoxaparin Sodium 40 Mg/0.4 Ml Syringe) 40 mg SUBCUT Q24H [facility] Last Admin: 06/19/21 20:16 Dose: 40 mg Documented by: PHUONG Sodium Chloride (Ns) 1,000 mls @ 100 mls/hr IVCONT .Q10H [facility] Last Admin: 06/19/21 23:29 Dose: 100 mls/hr Documented by: MARK Loratadine (Loratadine 10 Mg Tablet) 10 mg PO DAILY [facility] Last Admin: 06/19/21 07:55 Dose: 10 mg Documented by: PHUONG Methadone HCl (Methadone Hcl 20 Mg/2 Ml Oral.Conc) 70 mg PO DAILY [facility] Last Admin: 06/19/21 10:25 Dose: 70 mg Documented by: PHUONG Ondansetron HCl (Ondansetron Hcl 4 Mg/2 Ml Vial) 4 mg IVPUSH Q8H PRN PRN Reason: Nausea and Vomiting Pharmacy Consult (Consult Rx Perform Med Rec) 1 each MISCELLANE ONCE PRN PRN Reason: Consult order Sertraline HCl (Sertraline Hcl 100 Mg Tablet) 100 mg PO DAILY [facility] Last Admin: 06/19/21 07:56 Dose: 100 mg Documented by: PHUONG Sodium Chloride (0.9 % Sodium Chloride Flush 3 Ml Syringe) 3 ml IVFLUSH QSHIFT [facility] Last Admin: 06/19/21 23:33 Dose: Not Given Documented by: MARK Non-Admin Reason: IV Running Labs CBC & Chem 7: 06/19/21 04:57 06/20/21 06:25 Labs: Laboratory Results - last 24 hr 06/20/21 06:25 Anion Gap 10 L Estim Creat Clear Calc 147.9 Estimated GFR > 60 Random Glucose 89 Calcium 9.1 Assessment and Plan (1) Orthostatic hypotension: Status: Acute (2) Bradycardia, sinus: Status: Acute Assessment and Plan: 1. orthostatic hypotension/question of symptomatic bradycardia sinus wilber Will continue IV fluid 100 mL/hour,Monitor blood pressure,Monitor orthostasis, tele hold clonidine/prazosin,[place] stockings Cardio evaluation noted -continue ivf , echo,ekg now 2. Schizoaffective dis/depression/ptsd: Continue Abilify, buspirone, sertraline 3. Drug use history: U tox neg Continue methadone DVT :? SubQ Lovenox Quality Stroke Does the patient have a stroke diagnosis?: No VTE Prior VTE?: No VTE Risk Level:: Medical - moderate - high VTE Device Contraindication: N/A - Device Ordered VTE Drug Contraindication: N/A - Med Ordered
[2021-06-20] MEDS: ARIPiprazole 15 MG TABLET PO (08:27)
[2021-06-20] MEDS: busPIRone HCl 10 MG TABLET PO ×3 (08:27→19:50)
[2021-06-20] MEDS: Sertraline HCL 100 MG TABLET PO (08:27)
[2021-06-20] MEDS: Loratadine 10 MG TABLET PO (08:27)
--- NOTE | 2021-06-20 08:30 | CA_ITS ---
Transthoracic Echocardiogram Patient (Last, First, Middle): Drew Weiss, Gender: Male Date of : 1980 Age: 40 Procedure Date: 06/20/2021 Procedure Type: Transthoracic Echocardiogram [place] [facility] [place]: 187.96 cm Weight: 81.65 kg BSA: 2.08 m2 Heart Rate: bpm BP: 126 / 78 mmHg City Mail Carrier: JABARI/DASH Referring MD: Anisa White MD Symptoms: Bradycardia and orthostasis Study Quality: Fair Conclusions: - Normal left ventricular size, thickness, systolic function, and wall motion. The visually estimated ejection fraction is between 60-65%. Diastolic function is normal for age. - Normal right ventricular cavity size and systolic function. Findings Left Ventricle Normal left ventricular size, thickness, systolic function, and wall motion. The visually estimated ejection fraction is between 60-65%. Diastolic function is normal for age. Right Ventricle Normal right ventricular cavity size and systolic function. Atria Both atria are normal in size. Aortic Valve Normal aortic valve structure and function. There is no aortic valve stenosis. There is no aortic valve regurgitation. Mitral Valve Normal mitral valve structure and function. There is no mitral valve regurgitation. There is no mitral valve stenosis. Pulmonic Valve Normal pulmonic valve structure and function. There is no pulmonic valve regurgitation. Tricuspid Valve Normal tricuspid valve structure and function. There is trace tricuspid valve regurgitation. Normal right atrial pressure. There is no evidence of pulmonary hypertension. Great Vessels All visible segments of the aorta are normal in size. The visualized portions of the pulmonary artery and branches are normal. Venous The inferior vena cava is normal in size and collapses greater than 50% with inspiration. Pericardium/Pleural There is no evidence of pericardial effusion. Prior Study Comparison No prior study available for comparison. Measurements 2D Linear Measurements IVSd: 0.70 0.6-0.9/0.6-1.0 cm LVIDd: 4.71 3.9-5.3/4.2-5.9 cm LVIDd Index: 2.26 2.4-3.2/2.2-3.1 cm/m2 LVIDs: 3.36 2.0-3.6 cm LVPWd: 0.79 0.7-1.1 cm Ao Root: 3.30 2.1-3.5 cm LA Diam: 3.10 2.7-3.8/3.0-4.0 cm LAIDs Index: 1.49 1.5-2.3 cm/m2 LV Mass: 139.07 67-162/88-224 g LV Mass Index: 66.86 43-95/49-115 g/m2 LVOT Diam: 2.00 3.0+(-)1.3 cm 2D Systolic Function EF 4C: 56.10 >55% EF 2C: 66.40 >55% EF BiP: 63.70 >55% Mitral Valve MV Pk E: 0.66 MV PK A: 0.75 MV Decel Time: 206.00 E/A: 0.90 E'Lateral: 11.40 E'Medial: 8.16 E/E' Med: 8.00 E/E' Lat: 5.80 PHT: 60.00 MVA PHT: 3.67 Decel [place]: 3.19 Aortic Valve AoV Pk Dae: 1.09 AoV Mn Dae: 0.84 AoV VTI: 0.27 AoV Pk Grad: 5.00 Aov Mn Grad: 3.00 LEVI Cont.VTI: 2.37 LVOT LVOT Pk Dae: 0.98 LVOT Mn Dae: 0.67 LVOT VTI: 0.20 LVOT Pk Grad: 4.00 LVOT Mn Grad: 2.00 LVOT Diam: 2.00 LVOT Area: 3.14 Diastolic Function MV Pk E: 0.66 MV Pk A: 0.75 E/A: 0.90 E'Medial: 8.16 E/E' Med: 8.00 E' Laterial: 11.40 E/E' Lat: 5.80 Right Ventricle TAPSE (mm): 1.94 TVS' Dae: 10.10 Tricuspid Valve TR Pk Dea: 2.23 TR Pk Grad: 20.00 RA Press: 3.00 RVSP: 23.00 Great Vessels Aorta Ao Root-2D: 3.30 2.0-3.7 cm Ao Asc: 2.80 2.1-3.4 cm Ao Arch: 2.60 Updated in Other Vendor System with Status of Final Leo Garibay MD electronically signed on 06/20/2021 7:18:38 PM with status of Final
--- NOTE | 2021-06-20 10:06 | P.PNCA_ITS ---
Subjective Subjective Date of Service: 06/20/21 <JENNIFER Hammond - Last Filed: 06/20/21 11:38> 06/20/21 <Leo Garibay MD - Last Filed: 06/20/21 11:53> Principal diagnosis: presyncope, orthostatic hypotension. sinus bradycardia <JENNIFER Hammond - Last Filed: 06/20/21 11:38> Interval history: Cardiology follow up for the above. Seen at 0830. Today he reports feeling well. No dizziness, presyncope, syncope. Has not been out of bed yet this am. No chest pains, sob, palpitation. No edema. Slept OK. <JENNIFER Hammond - Last Filed: 06/20/21 11:38> Review of Systems Review of Systems as above <JENNIFER Hammond - Last Filed: 06/20/21 11:38> Yes all other systems are reviewed and are negative <JENNIFER Hammond - Last Filed: 06/20/21 11:38> Physical Exam Vital Signs: Last Vital Signs Temp 98.2 F 06/20/21 07:54 Pulse 53 06/20/21 07:54 Resp 18 06/20/21 07:54 BP 128/78 06/20/21 07:54 Pulse Ox 98 06/20/21 07:54 Body Mass Index 23.2 <JENNIFER Hammond - Last Filed: 06/20/21 11:38> Const General: cooperative, healthy appearing, no acute distress, alert and awake <JENNIFER Hammond - Last Filed: 06/20/21 11:38> Orientation/consciousness: patient oriented x3 <JENNIFER Hammond - Last Filed: 06/20/21 11:38> HENMT Head: Yes normal to inspection <JENNIFER Hammond Last Filed: 06/20/21 11:38> Neck Neck: Yes normal visual inspection and Yes no JVD <JENNIFER Hammond Last Filed: 06/20/21 11:38> Resp Effort & Inspection: normal respiratory effort, able to speak in complete sentences and not labored <JENNIFER Hammond Last Filed: 06/20/21 11:38> Auscultation: clear to auscultation bilaterally, no crackles, no rales, no rhonchi and no wheezes <Sydni Lopez NP - Last Filed: 06/20/21 11:38> Cardio Palpation: normal PMI <Sydni Lopez [facility] - Last Filed: 06/20/21 11:38> Rate: regular rate <Sydni John [facility] - Last Filed: 06/20/21 11:38> Rhythm: regular rhythm <Sydni Lopez [facility] - Last Filed: 06/20/21 11:38> Heart sounds: S1 normal heart sound present and S2 normal heart sound present <Sydni Lopez [facility] - Last Filed: 06/20/21 11:38> Peripheral pulses: Peripheral pulses 2+ throughout <Sydni Lopez [facility] - Last Filed: 06/20/21 11:38> GI Inspection: Yes normal to inspection <Sydni Lopez [facility] - Last Filed: 06/20/21 11:38> Neuro General: patient oriented x3 <Sydni John [facility] - Last Filed: 06/20/21 11:38> Extrem General: Yes normal to inspection and No edema <Sydni Lopez [facility] - Last Filed: 06/20/21 11:38> Results Labs and Meds Result diagrams: : 06/19/21 04:57 06/20/21 06:25 <ySdni Lopez [facility] - Last Filed: 06/20/21 11:38> Lab results: Laboratory Results - last 24 hr 06/20/21 06:25 Sodium 139 Potassium 4.0 Chloride 108 Carbon Dioxide 25 Anion Gap 10 L BUN 5 L Creatinine 0.77 Estim Creat Clear Calc 147.9 Estimated GFR > 60 Random Glucose 89 Calcium 9.1 <Sydni LopezMAXI - Last Filed: 06/20/21 11:38> Progress Note: A&P Assessment and plan (1) Orthostatic hypotension: Status: Acute <Sydni LopezMAXI - Last Filed: 06/20/21 11:38> Assessment and Plan: Admit after having presyncope, falls at home, Was noted to have sinus bradycardia. Also noted to have orthostatic hypotension, with drop for BP into 70s systolic with standing. This is most likely the cause of his symptom. His home meds of Clonidine and Prazosin have been on hold. He has been receving IV fluid for hydration. Currently reports feeling well. Echo is pending. Recheck orthostatic vitals today. <CHARLIE HammondC - Last Filed: 06/20/21 11:38> (2) Bradycardia, sinus: Status: Acute <CHARLIE HammondC - Last Filed: 06/20/21 11:38> Assessment and Plan: Noted to have sinus bradycardia. EKG/ Tele rates 50-60s. No significant wilber or pauses noted. His home clonidine is being held. <CHARLIE HammondC - Last Filed: 06/20/21 11:38> (3) Pre-syncope: Status: Acute <CHARLIE HammondC - Last Filed: 06/20/21 11:38> Assessment and Plan: as above <CHARLIE HammondC - Last Filed: 06/20/21 11:38> Fall Risk Details Current Medications: Current Medications Acetaminophen (Acetaminophen 325 Mg Tablet) 650 mg PO Q6H PRN PRN Reason: Pain, Mild (Pain Scale 1-3) Aripiprazole (Aripiprazole 15 Mg Tablet) 15 mg PO DAILY [facility] Last Admin: 06/20/21 08:27 Dose: 15 mg Documented by: Buspirone HCl (Buspirone Hcl 10 Mg Tablet) 10 mg PO TID [facility] Last Admin: 06/20/21 08:27 Dose: 10 mg Documented by: Docusate Sodium (Docusate Sodium 100 Mg Capsule) 100 mg PO DAILY PRN PRN Reason: Constipation Enoxaparin Sodium (Enoxaparin Sodium 40 Mg/0.4 Ml Syringe) 40 mg SUBCUT Q24H [facility] Last Admin: 06/19/21 20:16 Dose: 40 mg Documented by: Sodium Chloride (Ns) 1,000 mls @ 100 mls/hr IVCONT .Q10H [facility] Last Admin: 06/19/21 23:29 Dose: 100 mls/hr Documented by: Loratadine (Loratadine 10 Mg Tablet) 10 mg PO DAILY [facility] Last Admin: 06/20/21 08:27 Dose: 10 mg Documented by: Methadone HCl (Methadone Hcl 20 Mg/2 Ml Oral.Conc) 70 mg PO DAILY [facility] Last Admin: 06/19/21 10:25 Dose: 70 mg Documented by: Ondansetron HCl (Ondansetron Hcl 4 Mg/2 Ml Vial) 4 mg IVPUSH Q8H PRN PRN Reason: Nausea and Vomiting Pharmacy Consult (Consult Rx Perform Med Rec) 1 each MISCELLANE ONCE PRN PRN Reason: Consult order Sertraline HCl (Sertraline Hcl 100 Mg Tablet) 100 mg PO DAILY [facility] Last Admin: 06/20/21 08:27 Dose: 100 mg Documented by: Sodium Chloride (0.9 % Sodium Chloride Flush 3 Ml Syringe) 3 ml IVFLUSH QSHIFT [facility] Last Admin: 06/20/21 08:27 Dose: Not Given Documented by: <JENNIFER Hammond - Last Filed: 06/20/21 11:38> Time Spent With Patient Time: Total time spent is greater than 50% in coordination of care (as documented) at patient's floor/unit and/or counseling patient: <JENNIFER Hammond - Last Filed: 06/20/21 11:38> Time with patient: 15 - 24 minutes <JENNIFER Hammond - Last Filed: 06/20/21 11:38> Progress Note: Quality Stroke Does the patient have a stroke diagnosis?: No <JENNIFER Hammond - Last Filed: 06/20/21 11:38> Procedures Date of Service Date of Service: 06/20/21 <JENNIFER Hammond - Last Filed: 06/20/21 11:38>
[2021-06-20] MEDS: methADONE HCl 20 MG/2 ML ORAL.CONC 70 MG PO (10:18)
[2021-06-20] MEDS: 0.9 % Sodium Chloride 1,000 ML 100 ML IVCONT ×2 (10:21→17:15)
--- NOTE | 2021-06-20 11:14 | PC.NURSE ---
1100 c/o fleeting syncopee wuen first standing. Appears steady
[2021-06-20 13:42] LABS: Alanine Aminotransferase 88 U/L (0-40); Albumin Level 3.8 g/dL (3.5-5.0); Alkaline Phosphatase 111 U/L (39-117); Aspartate Amino Transferase 44 U/L (5-37); Bilirubin Direct 0.2 mg/dL (0.0-0.5); Bilirubin Total 0.4 mg/dL (0.0-1.0); Total Protein 6.7 g/dL (6.5-8.0)
[2021-06-20 15:17] VITALS: BP 120/77; PULSE 87; RESP 18; TEMP 36.6; O2SAT 98
[2021-06-20] MEDS: Enoxaparin Sodium 40 MG/0.4 ML SYRINGE SUBCUT (17:14)
[2021-06-20 19:22] VITALS: BP 116/70; PULSE 67; RESP 18; TEMP 36.7; O2SAT 98
[2021-06-20 23:03] VITALS: BP 123/75; PULSE 63; RESP 18; TEMP 37; O2SAT 97
[2021-06-21] MEDS: 0.9 % Sodium Chloride 1,000 ML 100 ML IVCONT (02:14)
[2021-06-21 04:00] VITALS: BP 121/74; PULSE 55; RESP 20; TEMP 37.2; O2SAT 98
[2021-06-21 07:03] LABS: Anion Gap 13 (12-20); Blood Urea Nitrogen 6 mg/dL (9-16); Carbon Dioxide 24 mmol/L (22-29); Chloride 107 mmol/L (96-108); Estimated Glomerular Filt Rate > 60; Glucose Random 89 mg/dL (60-115); Sodium 140 mmol/L (135-145)
[2021-06-21 07:37] VITALS: BP 114/77; PULSE 56; RESP 20; TEMP 36.8; O2SAT 97
[2021-06-21] MEDS: busPIRone HCl 10 MG TABLET PO (09:36)
[2021-06-21] MEDS: Sertraline HCL 100 MG TABLET PO (09:36)
[2021-06-21] MEDS: methADONE HCl 20 MG/2 ML ORAL.CONC 70 MG PO (09:36)
[2021-06-21] MEDS: Loratadine 10 MG TABLET PO (09:36)
[2021-06-21] MEDS: ARIPiprazole 15 MG TABLET PO (09:36)
[2021-06-21 11:18] VITALS: BP 127/78; PULSE 56; RESP 18; TEMP 36.9; O2SAT 97
[2021-06-21 11:21] VITALS: BP 132/90; PULSE 89
--- NOTE | 2021-06-21 11:22 | PM.PNCARD ---
Subjective Subjective Date of Service: 06/21/21 Principal diagnosis: presyncope, orthostatic hypotension. sinus bradycardia Interval history: Cardiology follow up for the above. Seen at 1045. Today he reports feeling well. No dizziness, presyncope, syncope, unsteadiness. Denies sob, CP, palpitations. Still has IV fluid going. Hoping to be discharged today. Review of Systems Review of Systems as above Yes all other systems are reviewed and are negative Physical Exam Vital Signs: Last Vital Signs Temp 98.5 F 06/21/21 11:18 Pulse 56 06/21/21 11:18 Resp 18 06/21/21 11:18 BP 127/78 06/21/21 11:18 Pulse Ox 97 06/21/21 11:18 Body Mass Index 23.2 Const General: cooperative, healthy appearing, no acute distress, alert and awake Orientation/consciousness: patient oriented x3 Neck Neck: Yes normal visual inspection and Yes no JVD Resp Effort & Inspection: normal respiratory effort, able to speak in complete sentences and not labored Auscultation: clear to auscultation bilaterally, no crackles, no rales, no rhonchi and no wheezes Cardio Palpation: normal PMI Rate: regular rate Rhythm: regular rhythm Heart sounds: S1 normal heart sound present and S2 normal heart sound present Peripheral pulses: Peripheral pulses 2+ throughout GI Inspection: Yes normal to inspection Neuro General: patient oriented x3 Extrem General: Yes normal to inspection and No edema Results Labs and Meds Result diagrams: 06/19/21 04:57 06/21/21 05:51 Lab results: Laboratory Results - last 24 hr 06/20/21 06/21/21 06:25 05:51 Sodium 140 Potassium 4.0 Chloride 107 Carbon Dioxide 24 Anion Gap 13 BUN 6 L Creatinine 0.78 Estim Creat Clear Calc 146.0 Estimated GFR > 60 Random Glucose 89 Calcium 9.0 Magnesium 2.0 Total Bilirubin 0.4 Direct Bilirubin 0.2 AST 44 H ALT 88 H Alkaline Phosphatase 111 Total Protein 6.7 Albumin 3.8 Progress Note: A&P Assessment and plan (1) Orthostatic hypotension: Status: Acute Assessment and Plan: Admit after having presyncope, falls at home, Was noted to have sinus bradycardia. Also noted to have orthostatic hypotension, with drop for BP into 70s systolic with standing. This was most likely the cause of his symptom. His home meds of Clonidine and Prazosin have been on hold. He has been receving IV fluid for hydration. Currently reports feeling well. Echo shows EF 60-65%, normal LV and RV size and function. Plan orthostatic vitals today. If no significant orthostatic drop - He may be cleared for discharge from a cardiology perspective. Recommend he stay off Prazosin and avoid medications that can cause orthostatic hypotension. (2) Pre-syncope: Status: Acute (3) Bradycardia, sinus: Status: Acute Assessment and Plan: EKG and Tele monitoring this admit noted to have sinus bradycardia. No significant bradycardia, pauses or high degree heart block noted. Heart rate averages in 50s with him at rest and up to 60-70s with activity. No symptoms correlating with SB at present. His Clonidine has been on hold. Recommend that he stay off clonidine as avoid medications that can cause bradycardia. Fall Risk Details Current Medications: Current Medications Acetaminophen (Acetaminophen 325 Mg Tablet) 650 mg PO Q6H PRN PRN Reason: Pain, Mild (Pain Scale 1-3) Aripiprazole (Aripiprazole 15 Mg Tablet) 15 mg PO DAILY [facility] Last Admin: 06/21/21 09:36 Dose: 15 mg Documented by: Buspirone HCl (Buspirone Hcl 10 Mg Tablet) 10 mg PO TID [facility] Last Admin: 06/21/21 09:36 Dose: 10 mg Documented by: Docusate Sodium (Docusate Sodium 100 Mg Capsule) 100 mg PO DAILY PRN PRN Reason: Constipation Enoxaparin Sodium (Enoxaparin Sodium 40 Mg/0.4 Ml Syringe) 40 mg SUBCUT Q24H [facility] Last Admin: 06/20/21 17:14 Dose: 40 mg Documented by: Sodium Chloride (Ns) 1,000 mls @ 100 mls/hr IVCONT .Q10H [facility] Last Admin: 06/21/21 02:14 Dose: 100 mls/hr Documented by: Loratadine (Loratadine 10 Mg Tablet) 10 mg PO DAILY [facility] Last Admin: 06/21/21 09:36 Dose: 10 mg Documented by: Methadone HCl (Methadone Hcl 20 Mg/2 Ml Oral.Conc) 70 mg PO DAILY [facility] Last Admin: 06/21/21 09:36 Dose: 70 mg Documented by: Ondansetron HCl (Ondansetron Hcl 4 Mg/2 Ml Vial) 4 mg IVPUSH Q8H PRN PRN Reason: Nausea and Vomiting Pharmacy Consult (Consult Rx Perform Med Rec) 1 each MISCELLANE ONCE PRN PRN Reason: Consult order Sertraline HCl (Sertraline Hcl 100 Mg Tablet) 100 mg PO DAILY [facility] Last Admin: 06/21/21 09:36 Dose: 100 mg Documented by: Sodium Chloride (0.9 % Sodium Chloride Flush 3 Ml Syringe) 3 ml IVFLUSH QSHIFT [facility] Last Admin: 06/21/21 09:40 Dose: Not Given Documented by: Time Spent With Patient Time: Total time spent is greater than 50% in coordination of care (as documented) at patient's floor/unit and/or counseling patient: Time with patient: 15 - 24 minutes Progress Note: Quality Stroke Does the patient have a stroke diagnosis?: No Procedures Date of Service Date of Service: 06/21/21
--- NOTE | 2021-06-21 13:37 | PM.DS ---
DS: Providers Provider Date of Service: 06/21/21 Date of admission: 06/18/21 16:01 Primary care physician: [facility] Consults: 06/18/21 16:01 Consult to Cardiology Routine Consulting Provider: Warren Ramon Reason for consultation: syncope, bradycardia Has provider been notified: No 06/19/21 07:36 Consult to Psychiatry Routine Consulting Provider: Psych Covering Reason for consultation: psych med adjustment -has orthostasis Has provider been notified: No DS: Diagnosis Discharge Diagnosis (1) Orthostatic hypotension: Status: Acute (2) Pre-syncope: Status: Acute (3) Bradycardia, sinus: Status: Acute DS: Summary Hospital Course Hospital Course: History of presenting illness 40-year-old male history of schizoaffective, PTSD depression-he said that since yesterday night-he is feeling dizzy and blacked out type episode and fell down x3 but did not lose consciousness. First episode started when he was coming out of the bathroom and suddenly felt like everything going black in front of his eyes and slumped down.? He had to episode after that in the morning. He denies any chest pain or shortness of breath or or palpitations before this episodes.? But he felt like passing out. He said he had dizziness before also but he never had this severe episode of falling down or blacking out type situation. He denies using any new medication, he denies any recreation drug use also currently.? he says he is hydrating and eating well. Lab imaging EKG reviewed and personally interpreted: ?sodium borderline 134,? fingersticks around 118, elevated ALT and as aST mild head ct:iMPRESSION: No acute intracranial pathology. Denies any new complaint of chest pain or shortness of breath or abdominal pain or fever or chills or nausea or vomiting Denies any cough Denies any weakness or numbness.. Hospital course 40-year-old male with history of schizoaffective disorder, PTSD on multiple psychiatric medications, also on methadone and clonidine presented to [facility] with symptoms of dizziness, frequent falls and near syncope Diagnosed to have orthostatic hypotension and bradycardia patient admitted to telemetry unit treated with IV fluids clonidine and prazosin were held, subsequently blood pressure improved all symptoms have now resolved, likely patient's symptoms related to multiple psychiatric medications and methadone contributing to orthostatic hypotension and bradycardia therefore prazosin and clonidine has been discontinued upon discharge, patient has been informed that Abilify also causes significant hypotension and methadone can also cause bradycardia and severe hypotension therefore he needs to be followed closely by outpatient psychiatric provider to adjust psychiatric medications to avoid hypotension . Time Spent with Patient Time attestation: Total time spent providing and/or coordinating discharge services: Discharge coordination time: Greater than 30 minutes Quality: Stroke Does the patient have a stroke diagnosis?: No Physical Exam Vital Signs: Vital Signs: Last Vital Signs Temp 98.5 F 06/21/21 11:18 Pulse 89 06/21/21 11:21 Resp 18 06/21/21 11:18 BP 132/90 H 06/21/21 11:21 Pulse Ox 97 06/21/21 11:18 Body Mass Index 23.2 General alert oriented x3,no acute distress. Neck supple, no JVD. CVS regular rate rhythm, Respiratory lungs clear to auscultation, no respiratory distress, no wheeze, no rhonchi. Gastrointestinal abdomen soft, nontender, bowel sounds audible, no no guarding , no rigidity. Extremities no edema. Neuro nonfocal ,speech clear. Skin no rash Psych appropriate affect DS: Data Data Completed and Pending Labs on day of discharge: Laboratory Results - last 24 hr 06/20/21 06/21/21 06:25 05:51 Sodium 140 Potassium 4.0 Chloride 107 Carbon Dioxide 24 Anion Gap 13 BUN 6 L Creatinine 0.78 Estim Creat Clear Calc 146.0 Estimated GFR > 60 Random Glucose 89 Calcium 9.0 Magnesium 2.0 Total Bilirubin 0.4 Direct Bilirubin 0.2 AST 44 H ALT 88 H Alkaline Phosphatase 111 Total Protein 6.7 Albumin 3.8 Discharge Plan Discharge Patient Disposition: Home, Self-Care Discharge Diagnosis: Orthostatic hypotension Referrals: [facility] [Primary Care Provider] - 1 Week Discharge Medications: Continued sertraline 100 mg tablet 100 mg PO DAILY RF: 0 buspirone 10 mg tablet 1 tab PO TID RF: 0 loratadine 10 mg tablet 1 tab PO DAILY RF: 0 methadone [Methadose] 10 mg/mL concentrate 68 mg PO DAILY RF: 0 aripiprazole [Abilify] 15 mg Tablet 15 mg PO DAILY RF: 0 Discontinued clonidine HCl 0.1 mg tablet 1 tab PO BID RF: 0 prazosin 5 mg capsule 1 cap PO BEDTIME RF: 0 Discharge Orders: Discharge Order (Routine); Ordered 06/21/21 Ordered By: Julia Gonzalez Diet: advance to usual diet Activity on Discharge: As tolerated Stand Alone Forms: Patient Portal Discharge page Care Plan Goals: Low blood pressure and heart rate due to multiple medication, stop using clonidine and prazosin. Return to check with lightheadedness dizziness or symptoms of passing out. Health Concerns: Continue all other medications as before Plan of Treatment: Outpatient follow-up with primary care physician and psych provider to adjust medications in next 1-2 weeks Assessment: As above
--- NOTE | 2021-06-21 13:43 | MHC.CM.PN ---
pt dcd home no skilled servceis orderd by
== END 2021-06-21 14:37 | disposition home or self-care (01) | DRG 204 ==
LOC: HO.ED 15:31 → HO.EDOVER 16:56 → HO.IMC 20:09
PROVIDERS: Internal Medicine; Physician Assistant; Admitting Provider Physician Assistant Medical; Emergency Provider Emergency Medicine; PCP Internal Medicine Geriatric Medicine; Visit Provider Hospitalist
DX: I95.1 Orthostatic hypotension (principal); F11.20 Opioid dependence, uncomplicated; R00.1 Bradycardia, unspecified; F25.1 Schizoaffective disorder, depressive type; F43.12 Post-traumatic stress disorder, chronic; R29.6 Repeated falls; Z20.822 Contact with and (suspected) exposure to COVID-19; Z91.81 History of falling; F17.210 Nicotine dependence, cigarettes, uncomplicated; Z71.6 Tobacco abuse counseling; Z79.899 Other long term (current) drug therapy
CPT/HCPCS: 36415; 70450; 80048; 80076; 80307; 81003; 82077; 82550; 82947; 83036; 83735; 85025; 85027; 85379; 87635; 93005; 93306; 96360; 96361; 99219; 99285; 99291; J1650

== ENCOUNTER 2024-03-11 18:39 | Inpatient (IN) | payer MEDICAID, OTHER, SELFPAY ==
[2024-03-11 18:51] VITALS: BP 141/87; PULSE 116; RESP 18; TEMP 37.1; O2SAT 97; BMI 27.2
--- NOTE | 2024-03-11 18:53 | ED_ITS ---
HPI - Psych General Chief Complaint: Psychiatric Symptoms Stated Complaint: SI Time Seen by Provider: 03/11/24 19:33 Source: patient Mode of arrival: ambulatory Limitations: no limitations History of Present Illness ED Provider: Dr. Erika Tsang HPI Narrative: Patient comes to the emergency room complaining of depression and suicidal ideation. Patient admits to using heroin, states that he would, suicide by jumping into a river or overdosing. Patient admits to using cocaine and THC this afternoon. Seems that earlier today, patient was seen at [facility] for an overdose. At that time, patient states that he denied SI or HI Related Data Home Medications ?Medication ?Instructions ?Recorded ?Confirmed No Known Home Meds 03/11/24 03/11/24 Allergies Allergy/AdvReac Type Severity Reaction Status Date / Time No Known Allergies Allergy Verified 03/11/24 18:51 Review of Systems 2 Review of Systems: Constitutional : No Weight loss, No Fever, No Chills, No Night Sweats, No Fatigue, No Malaise ENT/Mouth : No Hearing loss, No Ear Pain, No Nasal Congestion, No Sinus Pain, No Hoarseness, No sore throat, No Rhinorrhea, No Swallowing Difficulty Eyes: No Eye Pain, No Swelling, No Redness, No Foreign Body, No Discharge, No Vision Changes Cardiovascular : No Chest Pain, No SOB, No Dyspnea on Exertion, No Orthopnea, No Edema, No Palpitations Respiratory : No Cough, No Sputum, No Wheezing, No Smoke Exposure, No Dyspnea Gastrointestinal : No Nausea, No Vomiting, No Diarrhea, No Constipation, No abdominal Pain, No Hematochezia, No Melena Genitourinary : no irregular bleeding, No Dysuria, No Urinary Frequency, No Hematuria, No Urinary Incontinence, No Urgency, No Flank Pain, No Urinary Flow Changes, No Hesitancy Musculoskeletal : No joint pain, No Myalgias, No Joint Swelling Skin : No Skin Lesions, No rash Neuro : No Weakness, No Numbness, No Paresthesias, No Loss of Consciousness, No Dizziness, No Headache Psych : No Anxiety/Panic, complaining of depression, suicidal ideation, polysubstance abuse Heme/Lymph: No Bruising, No Bleeding,No Lymphadenopathy Endocrine : No Polyuria, No Polydipsia, No Temperature Intolerance PMFSH Past Medical History Medical History Opioid use disorder Chronic post-traumatic stress disorder (PTSD) Schizoaffective disorder, depressive type Polysubstance (including opioids) dependence w/o physiol dependence Family History Family History Other Polysubstance (including opioids) dependence w/o physiol dependence Social History Social History Household Members: Family Housing: House Patient Tobacco Use Status: Current everyday Tobacco user Tobacco use type: Cigarette Cigarette Packs Per Day: 0.25 Cigarettes Per Day: 5.0 e-Cigarette/Vaping Use: Never Used Second Hand Smoke Exposure: No Substance Use Type: Crack/Cocaine, Heroin, IV Drugs and Marijuana Advance Directives: No Advance Directives Information Provided: No Do you have a plan to hurt others: No Plan service: Yes ([employer] [id number]) Sexual orientation: Did not discuss Physical Exam 2 Vital Signs: Vital Signs: Last Vital Signs Temp 98.8 F 03/11/24 18:51 Pulse 116 H 03/11/24 18:51 Resp 18 03/11/24 18:51 BP 141/87 H 03/11/24 18:51 Pulse Ox 97 03/11/24 18:51 O2 Del Method Room Air 03/11/24 18:51 BMI result Body Mass Index 27.2 Const: Other: Appearance: Alert. Oriented X3. No acute distress. Eyes: Pupils equal, round and reactive to light. ENT: Pharynx normal. Neck: Normal inspection. Neck supple. No lymph nodes noted. No crepitus CVS: Normal heart rate and rhythm. Pulses normal. Normal S1 and S2 Respiratory: No respiratory distress. Breath sounds normal. No Wheezing. No rales Abdomen: Soft and nontender. No rigidity. No distention. Skin: Skin warm and dry. Normal skin color. Normal skin turgor. Patient has a chronic ulcer on the dorsum of the foot, not infected Extremities: No lower extremity edema. No Lacerations. No Rash Neuro: Oriented X 3. No motor deficit. No sensory deficit. Moving all extremities. No slurred speech. CN 2 through 12 grossly intact Psych: calm, cooperative, normal affect Course Course Course Narrative: This is a Rapid Medical Examination (RME) performed by Sarbjit Johns PA-C in triage. Full HPI, ROS, assessment and treatment plan per primary provider in the Main ED. 43 yo with history of depression (not on medication), polysubstance use disorder, history of SI requiring hospitalization who presents to the ER for SI and attempt by overdosing. He sniffed heroin today, went out and was given narcan. He was brought to [facility] but he did not endorse SI at that time. Used cocaine and marijuana. Recently moved back to the area and was trying to get into a program but his insurance . Plan: labs, medically clear, CARE Team evaluation Medical Decision Making Medical Decision Making [facility] Narrative: -my interpretation of labs: White blood cell count 11.8, likely reactive leukocytosis, no source of infection. Normal chemistry, normal LFTs, urinalysis shows trace leukocyte esterase what small amount of white blood cells in the urine, patient does not have dysuria or any UTI symptoms, antibiotics not indicated at this time. Urine toxicology positive for fentanyl cocaine and marijuana, alcohol level positive at 60 -patient is on a Section 12 -care team consult pending -physician observation started at 20:15 Differential Diagnosis Differential Diagnoses: The differential diagnosis associated with the presentation includes (Anxiety, depression, polysubstance abuse, suicidal ideation) Admission/Observation Consideration of admission/observation: Escalation of care including admission/observation considered (Patient is on a Section 12, waiting for the care team to be seen) Lab Data [facility] Lab Attestation statement: I reviewed the patient's lab results. 03/11/24 19:02 03/11/24 19:02 Labs: Lab Results 03/11/24 03/11/24 Range/Units 19:02 19:22 WBC 11.8 H (4.8-10.8) X10*3/uL RBC 5.40 (4.60-5.80) X10*6/uL Hgb 15.7 (14.0-18.0) g/dl Hct 46.3 (42.0-52.0) % MCV 85.7 (80.0-98.0) fL MCH 29.1 (27.0-33.0) pg MCHC 33.9 (31.0-36.0) g/dl RDW 12.9 (11.0-16.0) % Plt Count 216 (160-400) X10*3/uL MPV 9.3 L (9.4-12.4) fL Immature Gran % (Auto) 0.4 (0.0-0.4) % Neut % (Auto) 78.5 H (45-73) % Lymph % (Auto) 12.3 L (20-40) % Leon % (Auto) 8.2 (2-11) % Eos % (Auto) 0.2 (0-4) % Baso % (Auto) 0.4 (0-2) % Lymph # (Auto) 1.5 (1.2-4.9) X10*3/uL Leon # (Auto) 1.0 (0.1-1.2) X10*3/uL Eos # (Auto) 0.0 (0.0-0.4) X10*3/uL Baso # (Auto) 0.1 (0.0-0.2) X10*3/uL Abs Immat Gran (auto) 0.05 H (0.00-0.03) X10*3/uL Absolute Neuts (auto) 9.3 H (2.0-8.3) x10*3/uL Absolute Nucleated RBC 0.000 (0.0-0.012) X10*3/uL Nucleated RBC % (auto) 0.0 (0.0-0.2) /100WBC Sodium 140 (135-145) mmol/L Potassium 3.4 (3.3-5.1) mmol/L Chloride 103 (96-108) mmol/L Carbon Dioxide 23 (22-29) mmol/L Anion Gap 17 (12-20) BUN 13 (9-16) mg/dL Creatinine 0.96 (0.5-1.4) mg/dL Estim Creat Clear Calc 115.3 Estimated GFR > 60 Random Glucose 98 (60-115) mg/dL Calcium 9.6 D (8.4-10.2) mg/dL Magnesium 2.2 (1.6-2.6) mg/dL Total Bilirubin 0.5 (0.0-1.0) mg/dL Direct Bilirubin 0.2 (0.0-0.5) mg/dL AST 47 H (5-37) U/L ALT 17 (0-40) U/L Alkaline Phosphatase 101 (39-117) U/L Total Protein 7.6 (6.5-8.0) g/dL Albumin 4.7 (3.5-5.0) g/dL Urine Color Dark Yellow Urine Appearance Turbid Urine pH 5.5 (5.0-9.0) Ur Specific [place] 1.025 (1.005-1.025) Urine Protein 100 (2+) H (Neg-Trace) mg/dL Urine Glucose (UA) Negative (Negative) mg/dL Urine Ketones Trace (Negative) mg/dL Urine Blood Negative (Negative) Urine Nitrite Negative (Negative) Ur Leukocyte Esterase Trace H (Negative) Urine RBC 0-2 (0-2) /HPF Urine WBC 11-20 H (0-5) /HPF Ur Squamous Epith Cells 0-2 (0-2) /HPF Other Crystals Present Urine Bacteria None Seen (None Seen) Hyaline Casts 3-5 (0-2) /LPF Urine Opiates Screen Not Detected (Not Detect) Ur Buprenorphine Scrn Not Detected (Not Detect) ng/mL Ur Oxycodone Screen Not Detected (Not Detect) ng/mL Urine Methadone Screen Not Detected (Not Detect) ng/mL Urine Fentanyl Screen POSITIVE H (Not Detect) Ur Barbiturates Screen Not Detected (Not Detect) Ur Phencyclidine Scrn Not Detected (Not Detect) Ur Amphetamines Screen Not Detected (Not Detect) U Benzodiazepines Scrn Not Detected (Not Detect) Urine Cocaine Screen POSITIVE H (Not Detect) U Marijuana (THC) Screen POSITIVE H (Not Detect) Ethyl Alcohol 60 mg/dL Discharge Plan Discharge Clinical Impression: Opioid use disorder, Suicidal ideation Patient Disposition: Still a Patient Prescriptions: No Action No Known Home Meds Print Language: Tristanian
[2024-03-11 19:07] LABS: MANUAL DIFF FLAG NO
[2024-03-11 19:08] LABS: Basophils Absolute Auto 0.1 X10*3/uL (0.0-0.2); Basophils Percent Auto 0.4 % (0-2); Eosinophils Percent Auto 0.2 % (0-4); Hematocrit 46.3 % (42.0-52.0); Hemoglobin 15.7 g/dl (14.0-18.0); Imm Gran Abs Auto 0.05 X10*3/uL (0.00-0.03); Imm Gran Pct Auto 0.4 % (0.0-0.4); Lymphocytes Absolute Auto 1.5 X10*3/uL (1.2-4.9); Lymphocytes Percent Auto 12.3 % (20-40); Mean Corpuscular HGB Conc 33.9 g/dl (31.0-36.0); Mean Corpuscular Hemoglobin 29.1 pg (27.0-33.0); Mean Corpuscular Volume 85.7 fL (80.0-98.0); Mean Platelet Volume 9.3 fL (9.4-12.4); Monocytes Percent Auto 8.2 % (2-11); Neutrophils Absolute Auto 9.3 x10*3/uL (2.0-8.3); Neutrophils Percent Auto 78.5 % (45-73); Platelet Count 216 X10*3/uL (160-400); Red Cell Distribution Width 12.9 % (11.0-16.0); White Blood Count 11.8 X10*3/uL (4.8-10.8)
[2024-03-11 19:25] LABS: Alanine Aminotransferase 17 U/L (0-40); Albumin Level 4.7 g/dL (3.5-5.0); Alkaline Phosphatase 101 U/L (39-117); Anion Gap 17 (12-20); Aspartate Amino Transferase 47 U/L (5-37); Bilirubin Direct 0.2 mg/dL (0.0-0.5); Bilirubin Total 0.5 mg/dL (0.0-1.0); Blood Urea Nitrogen 13 mg/dL (9-16); Calcium 9.6 mg/dL (8.4-10.2); Carbon Dioxide 23 mmol/L (22-29); Chloride 103 mmol/L (96-108); Creatinine Clr Calc Pharmacy 115.3; Estimated Glomerular Filt Rate > 60; Ethanol 60 mg/dL; Glucose Random 98 mg/dL (60-115); Magnesium 2.2 mg/dL (1.6-2.6); Potassium 3.4 mmol/L (3.3-5.1); Sodium 140 mmol/L (135-145); Total Protein 7.6 g/dL (6.5-8.0)
[2024-03-11 19:30] LABS: Appearance Urine Turbid; Color Urine Dark Yellow; Glucose Urine UA Negative (Negative); Leukocyte Esterase Urine Trace (Negative); Nitrite Urine Negative (Negative); PH 5.5 (5.0-9.0); Specific Gravity - Urine 1.025 (1.005-1.025); UMIC TRIGGER UACC YES; Urine Blood Negative (Negative); Urine Ketones Trace mg/dL (Negative); Urine Protein 100 (2+) mg/dL (Neg-Trace)
[2024-03-11 19:38] LABS: Amphetamine Screen Urine Not Detected (Not Detect); Barbiturates, Urine Not Detected (Not Detect); Benzodiazepines Screen Urine Not Detected (Not Detect); Buprenorphine Scr Not Detected (Not Detect); Cannabinoid Screen Urine POSITIVE (Not Detect); Cocaine Screen Urine POSITIVE (Not Detect); Fentanyl, urine POSITIVE (Not Detect); Methadone Screen, Urine Not Detected (Not Detect); Opiate Screen Urine Not Detected (Not Detect); Oxycodone Screen Urine Not Detected (Not Detect); Phencyclidine Screen Urine Not Detected (Not Detect)
--- NOTE | 2024-03-11 19:38 | ED_ITS ---
HPI - Psych General Chief Complaint: Psychiatric Symptoms Stated Complaint: SI Time Seen by Provider: 03/11/24 19:33 Source: patient Mode of arrival: ambulatory Limitations: no limitations History of Present Illness ED Provider: Dr. Erika Tsang Related Data Home Medications ?Medication ?Instructions ?Recorded ?Confirmed aripiprazole 15 mg tablet (Abilify) 15 mg PO DAILY 06/18/21 06/18/21 buspirone 10 mg tablet 1 tab PO TID 06/18/21 06/18/21 loratadine 10 mg tablet 1 tab PO DAILY 06/18/21 06/18/21 methadone 10 mg/mL oral 68 mg PO DAILY 06/18/21 06/19/21 concentrate (Methadose) sertraline 100 mg tablet 100 mg PO DAILY 06/18/21 06/18/21 Allergies Allergy/AdvReac Type Severity Reaction Status Date / Time No Known Allergies Allergy Verified 03/11/24 18:51 PMFSH Past Medical History Medical History Chronic post-traumatic stress disorder (PTSD) Opioid use disorder Polysubstance (including opioids) dependence w/o physiol dependence Schizoaffective disorder, depressive type Family History Family History Other Polysubstance (including opioids) dependence w/o physiol dependence Social History Social History Household Members: Family Housing: House Patient Tobacco Use Status: Current everyday Tobacco user Tobacco use type: Cigarette Cigarette Packs Per Day: 0.25 Cigarettes Per Day: 5.0 e-Cigarette/Vaping Use: Never Used Second Hand Smoke Exposure: No Substance Use Type: Crack/Cocaine, Heroin, IV Drugs and Marijuana Advance Directives: No Advance Directives Information Provided: No Do you have a plan to hurt others: No Plan service: Yes ([employer] [id number]) Sexual orientation: Did not discuss Physical Exam 2 Vital Signs: Vital Signs: Last Vital Signs Temp 98.8 F 03/11/24 18:51 Pulse 116 H 03/11/24 18:51 Resp 18 03/11/24 18:51 BP 141/87 H 03/11/24 18:51 Pulse Ox 97 07/16/24 18:51 O2 Del Method Room Air 07/16/24 18:51 BMI result Body Mass Index 27.2 Medical Decision Making Lab Data 03/11/24 19:02 03/11/24 19:02 Labs: Lab Results 03/11/24 03/11/24 Range/Units 19:02 19:22 WBC 11.8 H (4.8-10.8) X10*3/uL RBC 5.40 (4.60-5.80) X10*6/uL Hgb 15.7 (14.0-18.0) g/dl Hct 46.3 (42.0-52.0) % MCV 85.7 (80.0-98.0) fL MCH 29.1 (27.0-33.0) pg MCHC 33.9 (31.0-36.0) g/dl RDW 12.9 (11.0-16.0) % Plt Count 216 (160-400) X10*3/uL MPV 9.3 L (9.4-12.4) fL Immature Gran % (Auto) 0.4 (0.0-0.4) % Neut % (Auto) 78.5 H (45-73) % Lymph % (Auto) 12.3 L (20-40) % Parker % (Auto) 8.2 (2-11) % Eos % (Auto) 0.2 (0-4) % Baso % (Auto) 0.4 (0-2) % Lymph # (Auto) 1.5 (1.2-4.9) X10*3/uL Parker # (Auto) 1.0 (0.1-1.2) X10*3/uL Eos # (Auto) 0.0 (0.0-0.4) X10*3/uL Baso # (Auto) 0.1 (0.0-0.2) X10*3/uL Abs Immat Gran (auto) 0.05 H (0.00-0.03) X10*3/uL Absolute Neuts (auto) 9.3 H (2.0-8.3) x10*3/uL Absolute Nucleated RBC 0.000 (0.0-0.012) X10*3/uL Nucleated RBC % (auto) 0.0 (0.0-0.2) /100WBC Sodium 140 (135-145) mmol/L Potassium 3.4 (3.3-5.1) mmol/L Chloride 103 (96-108) mmol/L Carbon Dioxide 23 (22-29) mmol/L Anion Gap 17 (12-20) BUN 13 (9-16) mg/dL Creatinine 0.96 (0.5-1.4) mg/dL Estim Creat Clear Calc 115.3 Estimated GFR > 60 Random Glucose 98 (60-115) mg/dL Calcium 9.6 D (8.4-10.2) mg/dL Magnesium 2.2 (1.6-2.6) mg/dL Total Bilirubin 0.5 (0.0-1.0) mg/dL Direct Bilirubin 0.2 (0.0-0.5) mg/dL AST 47 H (5-37) U/L ALT 17 (0-40) U/L Alkaline Phosphatase 101 (39-117) U/L Total Protein 7.6 (6.5-8.0) g/dL Albumin 4.7 (3.5-5.0) g/dL Urine Color Dark Yellow Urine Appearance Turbid Urine pH 5.5 (5.0-9.0) Ur Specific [place] 1.025 (1.005-1.025) Urine Protein 100 (2+) H (Neg-Trace) mg/dL Urine Glucose (UA) Negative (Negative) mg/dL Urine Ketones Trace (Negative) mg/dL Urine Blood Negative (Negative) Urine Nitrite Negative (Negative) Ur Leukocyte Esterase Trace H (Negative) Urine Opiates Screen Not Detected (Not Detect) Ur Buprenorphine Scrn Not Detected (Not Detect) ng/mL Ur Oxycodone Screen Not Detected (Not Detect) ng/mL Urine Methadone Screen Not Detected (Not Detect) ng/mL Urine Fentanyl Screen POSITIVE H (Not Detect) Ur Barbiturates Screen Not Detected (Not Detect) Ur Phencyclidine Scrn Not Detected (Not Detect) Ur Amphetamines Screen Not Detected (Not Detect) U Benzodiazepines Scrn Not Detected (Not Detect) Urine Cocaine Screen POSITIVE H (Not Detect) U Marijuana (THC) Screen POSITIVE H (Not Detect) Ethyl Alcohol 60 mg/dL Discharge Plan Discharge Prescriptions: No Action sertraline 100 mg tablet 100 mg PO DAILY buspirone 10 mg tablet 1 tab PO TID loratadine 10 mg tablet 1 tab PO DAILY methadone [Methadose] 10 mg/mL concentrate 68 mg PO DAILY aripiprazole [Abilify] 15 mg Tablet 15 mg PO DAILY Print Language: Sri Lankan
[2024-03-11 19:54] LABS: Bacteria Urine None Seen (None Seen); Other Crystals Urine Present; RBC Urine 0-2 /HPF (0-2); Squamous Epithelial Cell Urine 0-2 /HPF (0-2); UACC Culture Trigger YES
--- NOTE | 2024-03-12 | ECG_ITS ---
Test Reason : check qc interval Blood Pressure : / mmHG Vent. Rate : 073 BPM Atrial Rate : 073 BPM P-R Int : 168 ms QRS Dur : 088 ms QT Int : 404 ms P-R-T Axes : 077 032 045 degrees QTc Int : 445 ms Normal sinus rhythm Normal ECG When compared with ECG of 19-JUN-2021 11:07, No significant change was found Referred By: Generic ED Physician Electronically Signed By:EDWARD MACHUCA MD
--- NOTE | 2024-03-12 00:45 | MHC.CARE ---
Late Entry: Pt is agreeable to go to an [facility] facility, but he is being held on a section 12 should he change his mind.
[2024-03-12 06:48] VITALS: BP 126/82; PULSE 67; RESP 16; TEMP 37.1; O2SAT 97
--- NOTE | 2024-03-12 07:04 | PC.NURSE ---
Assumed care of patient at 0645. Patient is observed to be sleeping in their bed. No distress observed and breathing is even and unlabored.
[2024-03-12 14:08] VITALS: BP 146/98; PULSE 82; RESP 18; TEMP 37; O2SAT 95
[2024-03-12 14:09] VITALS: BMI 23.8
--- NOTE | 2024-03-12 15:48 | MHC.CLN ---
NUTRITION CONSULT FOR UNINTENTIONAL 25# WEIGHT LOSS. REVIEW OF WEIGHT HX SHOWS 03/12=84.2 KG; 03/11=96.162 KG. INDICATES WEIGHT ERROR SHOWING 27# WEIGHT LOSS X ONE DAY. OTHER WEIGHTS: 06/18/21=82 KG; 01/27/21=74.84 KG, SHOWING APPROX 20# WEIGHT GAIN X 3 YEARS. ADMITTED WITH POLYSUBSTANCE ABUSE. DATA DOES NOT SUPPORT UNINTENTIONAL WEIGHT LOSS. PLEASE CONSULT RD IF PATIENT WITH POOR PO.
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
[2024-03-12 20:00] VITALS: BP 136/86; PULSE 70; RESP 18; TEMP 36.9; O2SAT 98
[2024-03-13 08:00] VITALS: BP 139/70; PULSE 61; RESP 17; TEMP 36.6; O2SAT 97
[2024-03-13 08:40] VITALS: BP 139/70; PULSE 61; RESP 18; TEMP 36.6; O2SAT 99
[2024-03-13 08:53] LABS: Cholesterol 224 mg/dL (<200); Estimated Average Glucose 105 mg/dL; HDL Cholesterol 50 mg/dL (>40); Hemoglobin A1c % 5.3 % (<6.0); LDL Cholesterol Calculated 139 mg/dL (<100); Triglycerides 178 mg/dL (<150)
[2024-03-13] MEDS: Ibuprofen 200 MG TABLET PO (11:40)
[2024-03-13] MEDS: hydrOXYzine HCL 25 MG TABLET PO ×2 (13:12→21:15)
[2024-03-13] MEDS: Ibuprofen 600 MG TABLET PO (13:12)
--- NOTE | 2024-03-13 14:21 | MHC.RECOVRN ---
AUDIT-C Brief Intervention Pt had positive screen for unhealthy alcohol use on admission, subsequently met with t/w to discuss alcohol use and recovery supports/options. Pt voices concern regarding alcohol use and is aware that drinking at unhealthy levels is known to increase risk of alcohol related health problems. Pt reports 2 24 ounce beers daily x a couple days. Pt reports recently moving back from [place]. Reports alcohol use had been more frequent there but denies ever experiencing withdrawal symptoms. Also discussed pts heroin/fentanyl use and assessed for withdrawal. Pt reports using 1 bag in a suicide attempt. Prior to that, pt reports last use was 3 years ago. Had been maintaining recovery by working and staying busy. Pt expresses how alcohol use has impacted health, including negative impact on mental health. Discussed risk reduction strategies including drinking below the recommended limit. Provided pt with written resources including information on inpatient and outpatient treatment, YIFAN, harm reduction, and recovery coaching. Pt unsure of aftercare plans at this time, however, does express interest in [facility] referral. Pt provided with t/w contact information if questions or concerns arise. Denies other questions or concerns at this time.
[2024-03-13 15:12] VITALS: BMI 24.3
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
[2024-03-13] MEDS: Fluticasone Propionate Nasal 16 GM SPRAY 2 SPRAY NOSTRIL-B (16:52)
[2024-03-13] MEDS: QUEtiapine Fumarate 50 MG TABLET PO (21:14)
[2024-03-13] MEDS: Ibuprofen 800 MG TABLET PO (21:15)
[2024-03-13] MEDS: Mirtazapine 7.5 MG TABLET PO (21:15)
[2024-03-13 21:30] VITALS: BP 135/86; PULSE 64; RESP 16; TEMP 36.4; O2SAT 100
[2024-03-14 08:00] VITALS: BP 126/79; PULSE 60; TEMP 36.9; O2SAT 99
[2024-03-14] MEDS: Fluticasone Propionate Nasal 16 GM SPRAY 2 SPRAY NOSTRIL-B (09:04)
[2024-03-14] MEDS: Ibuprofen 800 MG TABLET PO ×2 (09:05→21:29)
--- NOTE | 2024-03-14 10:14 | P.PNPSI_ITS ---
Subjective Subjective Date of Service: 03/14/24 Reason For Visit: Depression/si Healthcare Proxy: No Guardianship: No Medical Problems Affecting Mental Status: No Interim History: Improved sleep with Mirtazapine/Seroquel combination. Will increase tonight as pt reports ongoing DONTRELL. Hoping to transition to [facility] program where he has done well by history Medication Compliance: Yes Side effects from medications: No Attending Groups: Intermittent Review of Systems Acute medical concerns: No Medical Review of Systems: unchanged Review of Systems Review of Systems Yes all other systems are reviewed and are negative Mental Status Exam Mental Status Exam Patient Appearance: Fatigued Patient Orientation: Person, Place, Time and Situation Level of Consciousness: Alert Patient Behavior: Talkative Mood Description: Depressed and Anxious Affect Description: Flat Patient Cognition Impaired: No Ability to Follow Directions: Good Speech Pattern: Spontaneous Speech Memory Description: Episodic Impaired Perceptual Disturbances: Depersonalization and Derealization Thought Process: Rumination Thought Content: positive for Circumstantial, positive for Perseveration and positive for Suicidal Ideation Depressive Symptoms: Increased Anxiety, Insomnia, Difficulty Sleeping, Feelings of Worthlessness, Unhappiness and Thoughts of /Suicide Judgement: Fair Diagnostics Vital Signs (24Hr): Vital Signs - 24 hr 03/13/24 21:30 03/14/24 08:00 Temperature 97.6 F 98.5 F Pulse Rate 64 60 Respiratory Rate 16 Blood Pressure 135/86 126/79 Pulse Oximetry 100 99 Oxygen Delivery Method Room Air Room Air BMI result Body Mass Index 24.3 Labs 03/11/24 19:02 03/11/24 19:02 Labs: Laboratory Results - last 48 hr 03/13/24 08:23 Estimat Average Glucose 105 Hemoglobin A1c % 5.3 Triglycerides 178 H Cholesterol 224 H LDL Cholesterol, Calc 139 H HDL Cholesterol 50 Medications Medications Current Medications Acetaminophen (Acetaminophen 325 Mg Tablet) 650 mg PO Q6H PRN PRN Reason: Headache/Pain Mild Scale (1-3) Al Hydroxide/Mg Hydroxide (Magnesium Hydrox/Alum Hydrox 30 Ml Oral.Susp) 30 ml PO Q6H PRN PRN Reason: Heartburn/Nausea Fluticasone Propionate (Fluticasone Propionate Nasal 16 Gm [place]) 2 spray NOSTRIL-B DAILY CANDIDO Last Admin: 03/14/24 09:04 Dose: 2 spray Hydroxyzine HCl (Hydroxyzine Hcl 25 Mg Tablet) 25 mg PO Q6H PRN PRN Reason: Anxiety Last Admin: 03/13/24 21:15 Dose: 25 mg Ibuprofen (Ibuprofen 800 Mg Tablet) 800 mg PO Q8H PRN PRN Reason: Pain, Mild (Pain Scale 1-3) Last Admin: 03/14/24 09:05 Dose: 800 mg Magnesium Hydroxide (Milk Of Magnesia 30 Ml Oral.Susp) 30 ml PO DAILY PRN PRN Reason: Constipation Mirtazapine (Mirtazapine 7.5 Mg Tablet) 7.5 mg PO BEDTIME [facility] Last Admin: 03/13/24 21:15 Dose: 7.5 mg Nicotine (Nicotine 21 Mg Patch.Td24) 21 mg TRANSDERMA DAILY PRN PRN Reason: smoking cessation Nicotine Polacrilex (Nicotine Polacrilex 2 Mg Gum) 4 mg BUCCAL Q2H PRN PRN Reason: Nicotine Cravings Olanzapine (Olanzapine 5 Mg Tablet) 5 mg PO TID PRN PRN Reason: agitation Quetiapine Fumarate (Quetiapine Fumarate 50 Mg Tablet) 50 mg PO BEDTIME [facility] Last Admin: 03/13/24 21:14 Dose: 50 mg Trazodone HCl (Trazodone Hcl 50 Mg Tablet) 50 mg PO BEDTIME MRX1 PRN PRN Reason: Insomnia Allergies Allergies Allergy/AdvReac Type Severity Reaction Status Date / Time No Known Allergies Allergy Verified 03/11/24 18:51 Assessment & Plan Assessment & Plan (1) Suicidal ideation: Status: Acute Code(s): R45.851 - Suicidal ideations (2) Opioid use disorder: Status: Chronic Code(s): F11.99 - Opioid use, unspecified with unspecified opioid-induced disorder (3) Polysubstance (including opioids) dependence w/o physiol dependence: Status: Chronic Code(s): F19.20 - Other psychoactive substance dependence, uncomplicated (4) Schizoaffective disorder: Status: Acute Code(s): F25.9 - Schizoaffective disorder, unspecified Plan Schizoaffective Disorder, Depressed. Opiate use disorder, s/p suicide attempt, Polysubstance Use Disorder. Collateral contacts Diagnostics as needed. Remeron 7.5 mg HS Seroquel 50 mg HS. Aftercare planning. 03/14: Increase Remeron to 15 mg HS Increase Seroquel to 75 mg HS. Reason for continued inpatient stay Substantial Risk for: rapid decompensation Time Spent With Patient Time: Total time managing care of this patient today ____ minutes.
[2024-03-14] MEDS: Acetaminophen 325 MG TABLET 650 MG PO (13:50)
[2024-03-14] MEDS: OLANZapine 5 MG TABLET PO (13:50)
[2024-03-14 20:00] VITALS: BP 126/78; PULSE 65; RESP 16; TEMP 36.4; O2SAT 98
[2024-03-14] MEDS: Mirtazapine 15 MG TABLET PO (21:25)
[2024-03-14] MEDS: QUEtiapine Fumarate 25 MG TABLET 75 MG PO (21:25)
[2024-03-15 08:00] VITALS: BP 134/80; PULSE 61; RESP 16; TEMP 37.1; O2SAT 99
--- NOTE | 2024-03-15 08:55 | HO.PSYCHPN ---
Subjective Subjective Date of Service: 03/15/24 Reason For Visit: Depression/si Subjective Notes: Conditional Voluntary Healthcare Proxy: No Guardianship: No Medical Problems Affecting Mental Status: No Interim History: Reports ongoing depressive sx. Tolerating regime Finds Olanzapine helpful. Requests increase. Sleep continues interrupted. Medication Compliance: Yes Side effects from medications: No Attending Groups: Intermittent Review of Systems Acute medical concerns: No Review of Systems Review of Systems Yes all other systems are reviewed and are negative (denies) Mental Status Exam Mental Status Exam Patient Appearance: Fatigued Patient Orientation: Person, Place, Time and Situation Level of Consciousness: Alert Patient Behavior: Talkative Mood Description: Depressed and Anxious Affect Description: Flat Patient Cognition Impaired: No Ability to Follow Directions: Good Speech Pattern: Spontaneous Speech Memory Description: Episodic Impaired Perceptual Disturbances: Depersonalization and Derealization Thought Process: Rumination Thought Content: positive for Circumstantial, positive for Perseveration and positive for Suicidal Ideation Depressive Symptoms: Increased Anxiety, Insomnia, Difficulty Sleeping, Feelings of Worthlessness, Unhappiness and Thoughts of /Suicide Judgement: Fair Diagnostics Vital Signs (24Hr): Vital Signs - 24 hr 03/14/24 20:00 Temperature 97.5 F Pulse Rate 65 Respiratory Rate 16 Blood Pressure 126/78 Pulse Oximetry 98 Oxygen Delivery Method Room Air BMI result Body Mass Index 24.3 Labs 03/11/24 19:02 03/11/24 19:02 Medications Medications Current Medications Acetaminophen (Acetaminophen 325 Mg Tablet) 650 mg PO Q6H PRN PRN Reason: Headache/Pain Mild Scale (1-3) Last Admin: 03/14/24 13:50 Dose: 650 mg Al Hydroxide/Mg Hydroxide (Magnesium Hydrox/Alum Hydrox 30 Ml Oral.Susp) 30 ml PO Q6H PRN PRN Reason: Heartburn/Nausea Fluticasone Propionate (Fluticasone Propionate Nasal 16 Gm [place]) 2 spray NOSTRIL-B DAILY CANDIDO Last Admin: 03/14/24 09:04 Dose: 2 spray Hydroxyzine HCl (Hydroxyzine Hcl 25 Mg Tablet) 25 mg PO Q6H PRN PRN Reason: Anxiety Last Admin: 03/13/24 21:15 Dose: 25 mg Ibuprofen (Ibuprofen 800 Mg Tablet) 800 mg PO Q8H PRN PRN Reason: Pain, Mild (Pain Scale 1-3) Last Admin: 03/14/24 21:29 Dose: 800 mg Magnesium Hydroxide (Milk Of Magnesia 30 Ml Oral.Susp) 30 ml PO DAILY PRN PRN Reason: Constipation Mirtazapine (Mirtazapine 15 Mg Tablet) 15 mg PO BEDTIME CANDIDO Last Admin: 03/14/24 21:25 Dose: 15 mg Nicotine (Nicotine 21 Mg Patch.Td24) 21 mg TRANSDERMA DAILY PRN PRN Reason: smoking cessation Nicotine Polacrilex (Nicotine Polacrilex 2 Mg Gum) 4 mg BUCCAL Q2H PRN PRN Reason: Nicotine Cravings Olanzapine (Olanzapine 5 Mg Tablet) 5 mg PO TID PRN PRN Reason: agitation Last Admin: 03/14/24 13:50 Dose: 5 mg Quetiapine Fumarate (Quetiapine Fumarate 25 Mg Tablet) 75 mg PO BEDTIME CANDIDO Last Admin: 03/14/24 21:25 Dose: 75 mg Trazodone HCl (Trazodone Hcl 50 Mg Tablet) 50 mg PO BEDTIME MRX1 PRN PRN Reason: Insomnia Allergies Allergies Allergy/AdvReac Type Severity Reaction Status Date / Time No Known Allergies Allergy Verified 03/11/24 18:51 Assessment & Plan Assessment & Plan (1) Suicidal ideation: Status: Acute Code(s): R45.851 - Suicidal ideations (2) Opioid use disorder: Status: Chronic Code(s): F11.99 - Opioid use, unspecified with unspecified opioid-induced disorder (3) Polysubstance (including opioids) dependence w/o physiol dependence: Status: Chronic Code(s): F19.20 - Other psychoactive substance dependence, uncomplicated (4) Schizoaffective disorder: Status: Acute Code(s): F25.9 - Schizoaffective disorder, unspecified Plan Schizoaffective Disorder, Depressed. Opiate use disorder, s/p suicide attempt, Polysubstance Use Disorder. Collateral contacts Diagnostics as needed. Remeron 7.5 mg HS Seroquel 50 mg HS. Aftercare planning. 03/14: Increase Remeron to 15 mg HS Increase Seroquel to 75 mg HS. 03/15: Increase Olanzapine to 10 mg HS Reason for continued inpatient stay Substantial Risk for: rapid decompensation Time Spent With Patient Time: Total time managing care of this patient today ____ minutes.
[2024-03-15] MEDS: Fluticasone Propionate Nasal 16 GM SPRAY 2 SPRAY NOSTRIL-B (09:13)
[2024-03-15] MEDS: OLANZapine 5 MG TABLET PO (09:19)
[2024-03-15] MEDS: Ibuprofen 800 MG TABLET PO ×2 (10:58→20:51)
[2024-03-15 20:00] VITALS: BP 148/93; PULSE 69; RESP 16; TEMP 36.6; O2SAT 99
[2024-03-15] MEDS: QUEtiapine Fumarate 25 MG TABLET 75 MG PO (20:52)
[2024-03-15] MEDS: OLANZapine 10 MG TABLET PO (20:52)
[2024-03-15] MEDS: Mirtazapine 15 MG TABLET PO (20:53)
[2024-03-16 08:00] VITALS: BP 132/83; PULSE 59; RESP 16; TEMP 37; O2SAT 97
[2024-03-16] MEDS: Fluticasone Propionate Nasal 16 GM SPRAY 2 SPRAY NOSTRIL-B (09:05)
[2024-03-16] MEDS: OLANZapine 5 MG TABLET PO ×2 (09:38→17:13)
[2024-03-16] MEDS: Ibuprofen 800 MG TABLET PO ×2 (09:38→20:49)
--- NOTE | 2024-03-16 12:39 | HO.PSYCHPN ---
Subjective Subjective Date of Service: 03/16/24 Reason For Visit: Depression/si Subjective Notes: Conditional Voluntary Healthcare Proxy: No Guardianship: No Medical Problems Affecting Mental Status: No Interim History: Reports ongoing depressive sx. Discussed antidepressant trial which he agrees with. Lexapro trial will begin. Sleep is still needing intervention. Will hold on this regime as it may need time to take effect. Quiet, in milieu with peers and engaged Medication Compliance: Yes Side effects from medications: No Attending Groups: Intermittent Review of Systems Acute medical concerns: No Medical Review of Systems: unchanged Review of Systems Review of Systems Yes all other systems are reviewed and are negative (denies) Mental Status Exam Mental Status Exam Patient Appearance: Fatigued Patient Orientation: Person, Place, Time and Situation Level of Consciousness: Alert Patient Behavior: Talkative Mood Description: Depressed and Anxious Affect Description: Flat Patient Cognition Impaired: No Ability to Follow Directions: Good Speech Pattern: Spontaneous Speech Memory Description: Episodic Impaired Perceptual Disturbances: Depersonalization and Derealization Thought Process: Rumination Thought Content: positive for Circumstantial, positive for Perseveration and positive for Suicidal Ideation Depressive Symptoms: Increased Anxiety, Insomnia, Difficulty Sleeping, Feelings of Worthlessness, Unhappiness and Thoughts of /Suicide Judgement: Fair Diagnostics Vital Signs (24Hr): Vital Signs - 24 hr 03/15/24 20:00 03/16/24 08:00 Temperature 97.9 F 98.6 F Pulse Rate 69 59 Respiratory Rate 16 16 Blood Pressure 148/93 H 132/83 Pulse Oximetry 99 97 Oxygen Delivery Method Room Air Room Air BMI result Body Mass Index 24.3 Labs 03/11/24 19:02 03/11/24 19:02 Medications Medications Current Medications Acetaminophen (Acetaminophen 325 Mg Tablet) 650 mg PO Q6H PRN PRN Reason: Headache/Pain Mild Scale (1-3) Last Admin: 03/14/24 13:50 Dose: 650 mg Al Hydroxide/Mg Hydroxide (Magnesium Hydrox/Alum Hydrox 30 Ml Oral.Susp) 30 ml PO Q6H PRN PRN Reason: Heartburn/Nausea Escitalopram Oxalate (Escitalopram Oxalate 5 Mg Tablet) 5 mg PO DAILY CANDIDO Fluticasone Propionate (Fluticasone Propionate Nasal 16 Gm [place]) 2 spray NOSTRIL-B DAILY [facility] Last Admin: 03/16/24 09:05 Dose: 2 spray Hydroxyzine HCl (Hydroxyzine Hcl 25 Mg Tablet) 25 mg PO Q6H PRN PRN Reason: Anxiety Last Admin: 03/13/24 21:15 Dose: 25 mg Ibuprofen (Ibuprofen 800 Mg Tablet) 800 mg PO Q8H PRN PRN Reason: Pain, Mild (Pain Scale 1-3) Last Admin: 03/16/24 09:38 Dose: 800 mg Magnesium Hydroxide (Milk Of Magnesia 30 Ml Oral.Susp) 30 ml PO DAILY PRN PRN Reason: Constipation Mirtazapine (Mirtazapine 15 Mg Tablet) 15 mg PO BEDTIME CANDIDO Last Admin: 03/15/24 20:53 Dose: 15 mg Nicotine (Nicotine 21 Mg Patch.Td24) 21 mg TRANSDERMA DAILY PRN PRN Reason: smoking cessation Nicotine Polacrilex (Nicotine Polacrilex 2 Mg Gum) 4 mg BUCCAL Q2H PRN PRN Reason: Nicotine Cravings Olanzapine (Olanzapine 5 Mg Tablet) 5 mg PO TID PRN PRN Reason: agitation Last Admin: 03/16/24 09:38 Dose: 5 mg Olanzapine (Olanzapine 10 Mg Tablet) 10 mg PO BEDTIME CANDIDO Last Admin: 03/15/24 20:52 Dose: 10 mg Quetiapine Fumarate (Quetiapine Fumarate 25 Mg Tablet) 75 mg PO BEDTIME CANDIDO Last Admin: 03/15/24 20:52 Dose: 75 mg Trazodone HCl (Trazodone Hcl 50 Mg Tablet) 50 mg PO BEDTIME MRX1 PRN PRN Reason: Insomnia Allergies Allergies Allergy/AdvReac Type Severity Reaction Status Date / Time No Known Allergies Allergy Verified 03/11/24 18:51 Assessment & Plan Assessment & Plan (1) Suicidal ideation: Status: Acute Code(s): R45.851 - Suicidal ideations (2) Opioid use disorder: Status: Chronic Code(s): F11.99 - Opioid use, unspecified with unspecified opioid-induced disorder (3) Polysubstance (including opioids) dependence w/o physiol dependence: Status: Chronic Code(s): F19.20 - Other psychoactive substance dependence, uncomplicated (4) Schizoaffective disorder: Status: Acute Code(s): F25.9 - Schizoaffective disorder, unspecified Plan Schizoaffective Disorder, Depressed. Opiate use disorder, s/p suicide attempt, Polysubstance Use Disorder. Collateral contacts Diagnostics as needed. Remeron 7.5 mg HS Seroquel 50 mg HS. Aftercare planning. 03/14: Increase Remeron to 15 mg HS Increase Seroquel to 75 mg HS. 03/16: Escitalopram 5 mg a.m. Reason for continued inpatient stay Substantial Risk for: rapid decompensation Time Spent With Patient Time: Total time managing care of this patient today ____ minutes.
[2024-03-16 20:00] VITALS: BP 135/87; PULSE 86; RESP 18; TEMP 36.9; O2SAT 97
[2024-03-16] MEDS: QUEtiapine Fumarate 25 MG TABLET 75 MG PO (20:48)
[2024-03-16] MEDS: OLANZapine 10 MG TABLET PO (20:48)
[2024-03-16] MEDS: Mirtazapine 15 MG TABLET PO (20:48)
[2024-03-16] MEDS: hydrOXYzine HCL 25 MG TABLET PO (20:48)
[2024-03-17 08:00] VITALS: BP 124/78; PULSE 65; RESP 16; TEMP 36.4; O2SAT 99
[2024-03-17] MEDS: Escitalopram Oxalate 5 MG TABLET PO (08:47)
[2024-03-17] MEDS: Fluticasone Propionate Nasal 16 GM SPRAY 2 SPRAY NOSTRIL-B (08:48)
[2024-03-17] MEDS: Ibuprofen 800 MG TABLET PO ×2 (08:51→20:49)
[2024-03-17] MEDS: guaiFENesin DM 600/30 1 TAB TAB.ER.12H 2 TAB PO ×2 (11:02→20:46)
--- NOTE | 2024-03-17 17:03 | P.PNPSI_ITS ---
Subjective Subjective Date of Service: 03/17/24 Reason For Visit: Depression/si Subjective Notes: Conditional Voluntary Healthcare Proxy: No Guardianship: No Medical Problems Affecting Mental Status: No Interim History: Reports allergy,URI sx. Mucinex ordered Sleep slowly improving. Pt asks to increase Seroquel. Depressive sx remain present Pt is visable in milieu. 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 Medication Compliance: Yes Side effects from medications: No Attending Groups: Intermittent Review of Systems Acute medical concerns: No Medical Review of Systems: unchanged Review of Systems Review of Systems URI/Allergy sx Mental Status Exam Mental Status Exam Patient Appearance: Fatigued Patient Orientation: Person, Place, Time and Situation Level of Consciousness: Alert Patient Behavior: Talkative Mood Description: Depressed and Anxious Affect Description: Flat Patient Cognition Impaired: No Ability to Follow Directions: Good Speech Pattern: Spontaneous Speech Memory Description: Episodic Impaired Perceptual Disturbances: Depersonalization and Derealization Thought Process: Rumination Thought Content: positive for Circumstantial, positive for Perseveration and positive for Suicidal Ideation Depressive Symptoms: Increased Anxiety, Insomnia, Difficulty Sleeping, Feelings of Worthlessness, Unhappiness and Thoughts of /Suicide Judgement: Fair Diagnostics Vital Signs (24Hr): Vital Signs - 24 hr 03/16/24 20:00 03/17/24 08:00 Temperature 98.5 F 97.6 F Pulse Rate 86 65 Respiratory Rate 18 16 Blood Pressure 135/87 124/78 Pulse Oximetry 97 99 Oxygen Delivery Method Room Air Room Air BMI result Body Mass Index 24.3 Labs 03/11/24 19:02 03/11/24 19:02 Medications Medications Current Medications Acetaminophen (Acetaminophen 325 Mg Tablet) 650 mg PO Q6H PRN PRN Reason: Headache/Pain Mild Scale (1-3) Last Admin: 03/14/24 13:50 Dose: 650 mg Al Hydroxide/Mg Hydroxide (Magnesium Hydrox/Alum Hydrox 30 Ml Oral.Susp) 30 ml PO Q6H PRN PRN Reason: Heartburn/Nausea Escitalopram Oxalate (Escitalopram Oxalate 5 Mg Tablet) 5 mg PO DAILY [facility] Last Admin: 03/17/24 08:47 Dose: 5 mg Fluticasone Propionate (Fluticasone Propionate Nasal 16 Gm [place]) 2 spray NOSTRIL-B DAILY [facility] Last Admin: 03/17/24 08:48 Dose: 2 spray Guaifenesin/Dextromethorphan (Guaifenesin Dm 600/30 1 Tab Tab.Er.12h) 2 tab PO BID PRN PRN Reason: Congestion Last Admin: 03/17/24 11:02 Dose: 2 tab Hydroxyzine HCl (Hydroxyzine Hcl 25 Mg Tablet) 25 mg PO Q6H PRN PRN Reason: Anxiety Last Admin: 03/16/24 20:48 Dose: 25 mg Ibuprofen (Ibuprofen 800 Mg Tablet) 800 mg PO Q8H PRN PRN Reason: Pain, Mild (Pain Scale 1-3) Last Admin: 03/17/24 08:51 Dose: 800 mg Magnesium Hydroxide (Milk Of Magnesia 30 Ml Oral.Susp) 30 ml PO DAILY PRN PRN Reason: Constipation Mirtazapine (Mirtazapine 15 Mg Tablet) 15 mg PO BEDTIME [facility] Last Admin: 03/16/24 20:48 Dose: 15 mg Nicotine (Nicotine 21 Mg Patch.Td24) 21 mg TRANSDERMA DAILY PRN PRN Reason: smoking cessation Nicotine Polacrilex (Nicotine Polacrilex 2 Mg Gum) 4 mg BUCCAL Q2H PRN PRN Reason: Nicotine Cravings Olanzapine (Olanzapine 5 Mg Tablet) 5 mg PO TID PRN PRN Reason: agitation Last Admin: 03/16/24 17:13 Dose: 5 mg Olanzapine (Olanzapine 10 Mg Tablet) 10 mg PO BEDTIME [facility] Last Admin: 03/16/24 20:48 Dose: 10 mg Quetiapine Fumarate (Quetiapine Fumarate 100 Mg Tablet) 100 mg PO BEDTIME [facility] Trazodone HCl (Trazodone Hcl 50 Mg Tablet) 50 mg PO BEDTIME MRX1 PRN PRN Reason: Insomnia Allergies Allergies Allergy/AdvReac Type Severity Reaction Status Date / Time No Known Allergies Allergy Verified 03/11/24 18:51 Assessment & Plan Assessment & Plan (1) Suicidal ideation: Status: Acute Code(s): R45.851 - Suicidal ideations (2) Opioid use disorder: Status: Chronic Code(s): F11.99 - Opioid use, unspecified with unspecified opioid-induced disorder (3) Polysubstance (including opioids) dependence w/o physiol dependence: Status: Chronic Code(s): F19.20 - Other psychoactive substance dependence, uncomplicated (4) Schizoaffective disorder: Status: Acute Code(s): F25.9 - Schizoaffective disorder, unspecified Plan Schizoaffective Disorder, Depressed. Opiate use disorder, s/p suicide attempt, Polysubstance Use Disorder. Collateral contacts Diagnostics as needed. Remeron 7.5 mg HS Seroquel 50 mg HS. Aftercare planning. 03/14: Increase Remeron to 15 mg HS Increase Seroquel to 75 mg HS. 03/17/24: Increase Seroquel to 100 mg HS Mucinex prn Reason for continued inpatient stay Substantial Risk for: rapid decompensation Time Spent With Patient Time: Total time managing care of this patient today ____ minutes.
[2024-03-17 20:00] VITALS: BP 138/90; PULSE 72; RESP 16; TEMP 36.7; O2SAT 97
[2024-03-17] MEDS: Mirtazapine 15 MG TABLET PO (20:46)
[2024-03-17] MEDS: OLANZapine 10 MG TABLET PO (20:47)
[2024-03-17] MEDS: QUEtiapine Fumarate 100 MG TABLET PO (20:47)
[2024-03-18 08:00] VITALS: BP 139/78; PULSE 69; RESP 16; TEMP 36; O2SAT 99
[2024-03-18] MEDS: Fluticasone Propionate Nasal 16 GM SPRAY 2 SPRAY NOSTRIL-B (09:20)
[2024-03-18] MEDS: Escitalopram Oxalate 5 MG TABLET PO (09:20)
[2024-03-18] MEDS: Ibuprofen 800 MG TABLET PO ×2 (09:24→18:13)
[2024-03-18] MEDS: guaiFENesin DM 600/30 1 TAB TAB.ER.12H 2 TAB PO (09:25)
[2024-03-18] MEDS: OLANZapine 5 MG TABLET PO (11:25)
--- NOTE | 2024-03-18 11:45 | P.PNPSI_ITS ---
Subjective Subjective Date of Service: 03/18/24 Reason For Visit: Depression/si Subjective Notes: Conditional Voluntary Healthcare Proxy: No Guardianship: No Medical Problems Affecting Mental Status: No Interim History: [facility]ues [facility] for admission approval to [facility]. Also looking at [facility]. Message left with [facility] as pt believes he left his clothes there prior to admission. Discussed Lexapro increase to 10 mg. Sleep with gradual improvement. Medication Compliance: Yes Side effects from medications: No Attending Groups: Intermittent Review of Systems Acute medical concerns: No Medical Review of Systems: unchanged Review of Systems Review of Systems Yes all other systems are reviewed and are negative Mental Status Exam Mental Status Exam Patient Appearance: Appropriate Patient Orientation: Person, Place, Time and Situation Level of Consciousness: Alert Patient Behavior: Talkative and Good Eye Contact Mood Description: Depressed Affect Description: Flat Patient Cognition Impaired: No Ability to Follow Directions: Good Speech Pattern: Spontaneous Speech Memory Description: Episodic Impaired Hallucinations: None Delusions: Not Present Perceptual Disturbances: Depersonalization and Derealization Thought Process: Rumination Thought Content: positive for Circumstantial, positive for Perseveration and positive for Suicidal Ideation Depressive Symptoms: Increased Anxiety, Insomnia, Difficulty Sleeping, Feelings of Worthlessness, Unhappiness and Thoughts of /Suicide Judgement: Fair Diagnostics Vital Signs (24Hr): Vital Signs - 24 hr 03/17/24 20:00 03/18/24 08:00 Temperature 98.1 F 96.8 F Pulse Rate 72 69 Respiratory Rate 16 16 Blood Pressure 138/90 H 139/78 Pulse Oximetry 97 99 Oxygen Delivery Method Room Air Room Air BMI result Body Mass Index 24.3 Labs 03/11/24 19:02 03/11/24 19:02 Medications Medications Current Medications Acetaminophen (Acetaminophen 325 Mg Tablet) 650 mg PO Q6H PRN PRN Reason: Headache/Pain Mild Scale (1-3) Last Admin: 03/14/24 13:50 Dose: 650 mg Al Hydroxide/Mg Hydroxide (Magnesium Hydrox/Alum Hydrox 30 Ml Oral.Susp) 30 ml PO Q6H PRN PRN Reason: Heartburn/Nausea Escitalopram Oxalate (Escitalopram Oxalate 5 Mg Tablet) 5 mg PO DAILY [facility] Last Admin: 03/18/24 09:20 Dose: 5 mg Fluticasone Propionate (Fluticasone Propionate Nasal 16 Gm [place]) 2 spray NOSTRIL-B DAILY [facility] Last Admin: 03/18/24 09:20 Dose: 2 spray Guaifenesin/Dextromethorphan (Guaifenesin Dm 600/30 1 Tab Tab.Er.12h) 2 tab PO BID PRN PRN Reason: Congestion Last Admin: 03/18/24 09:25 Dose: 2 tab Hydroxyzine HCl (Hydroxyzine Hcl 25 Mg Tablet) 25 mg PO Q6H PRN PRN Reason: Anxiety Last Admin: 03/16/24 20:48 Dose: 25 mg Ibuprofen (Ibuprofen 800 Mg Tablet) 800 mg PO Q8H PRN PRN Reason: Pain, Mild (Pain Scale 1-3) Last Admin: 03/18/24 09:24 Dose: 800 mg Magnesium Hydroxide (Milk Of Magnesia 30 Ml Oral.Susp) 30 ml PO DAILY PRN PRN Reason: Constipation Mirtazapine (Mirtazapine 15 Mg Tablet) 15 mg PO BEDTIME [facility] Last Admin: 03/17/24 20:46 Dose: 15 mg Nicotine (Nicotine 21 Mg Patch.Td24) 21 mg TRANSDERMA DAILY PRN PRN Reason: smoking cessation Nicotine Polacrilex (Nicotine Polacrilex 2 Mg Gum) 4 mg BUCCAL Q2H PRN PRN Reason: Nicotine Cravings Olanzapine (Olanzapine 5 Mg Tablet) 5 mg PO TID PRN PRN Reason: agitation Last Admin: 03/18/24 11:25 Dose: 5 mg Olanzapine (Olanzapine 10 Mg Tablet) 10 mg PO BEDTIME [facility] Last Admin: 03/17/24 20:47 Dose: 10 mg Quetiapine Fumarate (Quetiapine Fumarate 100 Mg Tablet) 100 mg PO BEDTIME [facility] Last Admin: 03/17/24 20:47 Dose: 100 mg Trazodone HCl (Trazodone Hcl 50 Mg Tablet) 50 mg PO BEDTIME MRX1 PRN PRN Reason: Insomnia Allergies Allergies Allergy/AdvReac Type Severity Reaction Status Date / Time No Known Allergies Allergy Verified 03/11/24 18:51 Assessment & Plan Assessment & Plan (1) Suicidal ideation: Status: Acute Code(s): R45.851 - Suicidal ideations (2) Opioid use disorder: Status: Chronic Code(s): F11.99 - Opioid use, unspecified with unspecified opioid-induced disorder (3) Polysubstance (including opioids) dependence w/o physiol dependence: Status: Chronic Code(s): F19.20 - Other psychoactive substance dependence, uncomplicated (4) Schizoaffective disorder: Status: Acute Code(s): F25.9 - Schizoaffective disorder, unspecified Plan Schizoaffective Disorder, Depressed. Opiate use disorder, s/p suicide attempt, Polysubstance Use Disorder. Collateral contacts Diagnostics as needed. Remeron 7.5 mg HS Seroquel 50 mg HS. Aftercare planning. 03/14: Increase Remeron to 15 mg HS Increase Seroquel to 75 mg HS. 03/17/24: Increase Seroquel to 100 mg HS Mucinex prn 03/18: Increase Lexapro to 10 mg daily Reason for continued inpatient stay Substantial Risk for: rapid decompensation Time Spent With Patient Time: Total time managing care of this patient today ____ minutes.
[2024-03-18 14:45] LABS: TSH reflex Free T4 0.93 uIU/mL (0.32-4.0)
[2024-03-18] MEDS: hydrOXYzine HCL 25 MG TABLET PO (18:13)
[2024-03-18 20:00] VITALS: BP 146/90; PULSE 85; RESP 15; TEMP 36.7; O2SAT 98
[2024-03-18] MEDS: OLANZapine 10 MG TABLET PO (20:38)
[2024-03-18] MEDS: Mirtazapine 15 MG TABLET PO (20:38)
[2024-03-18] MEDS: QUEtiapine Fumarate 100 MG TABLET PO (20:39)
[2024-03-19 09:56] VITALS: BP 120/80; PULSE 77; RESP 16; TEMP 36.6; O2SAT 99
[2024-03-19] MEDS: Ibuprofen 800 MG TABLET PO (10:16)
[2024-03-19] MEDS: OLANZapine 5 MG TABLET PO ×2 (10:16→19:26)
[2024-03-19] MEDS: Fluticasone Propionate Nasal 16 GM SPRAY 2 SPRAY NOSTRIL-B (10:17)
[2024-03-19] MEDS: guaiFENesin DM 600/30 1 TAB TAB.ER.12H 2 TAB PO (10:17)
[2024-03-19] MEDS: Escitalopram Oxalate 10 MG TABLET PO (10:17)
--- NOTE | 2024-03-19 10:27 | HO.PSYCHPN ---
Subjective Subjective Date of Service: 03/19/24 Reason For Visit: Depression/si Subjective Notes: Conditional Voluntary Healthcare Proxy: No Guardianship: No Medical Problems Affecting Mental Status: No Interim History: Continues with sx of anxiety, depression. Review of regime-discussed Mirtazapine increase Currently not feeling overmedicated, sleep gradually improving. Medication Compliance: Yes Side effects from medications: No Attending Groups: Intermittent Review of Systems Acute medical concerns: No Medical Review of Systems: unchanged Review of Systems Review of Systems Yes all other systems are reviewed and are negative Mental Status Exam Mental Status Exam Patient Appearance: Appropriate Patient Orientation: Person, Place, Time and Situation Level of Consciousness: Alert Patient Behavior: Talkative and Good Eye Contact Mood Description: Depressed Affect Description: Flat Patient Cognition Impaired: No Ability to Follow Directions: Good Speech Pattern: Spontaneous Speech Memory Description: Episodic Impaired Hallucinations: None Delusions: Not Present Perceptual Disturbances: Depersonalization and Derealization Thought Process: Rumination Thought Content: positive for Circumstantial, positive for Perseveration and positive for Suicidal Ideation Depressive Symptoms: Increased Anxiety, Insomnia, Difficulty Sleeping, Feelings of Worthlessness, Unhappiness and Thoughts of /Suicide Judgement: Fair Diagnostics Vital Signs (24Hr): Vital Signs - 24 hr 03/18/24 20:00 Temperature 98.0 F Pulse Rate 85 Respiratory Rate 15 Blood Pressure 146/90 H Pulse Oximetry 98 BMI result Body Mass Index 24.3 Labs 03/11/24 19:02 03/11/24 19:02 Labs: Laboratory Results - last 48 hr 03/18/24 13:49 TSH 0.93 Medications Medications Current Medications Acetaminophen (Acetaminophen 325 Mg Tablet) 650 mg PO Q6H PRN PRN Reason: Headache/Pain Mild Scale (1-3) Last Admin: 03/14/24 13:50 Dose: 650 mg Al Hydroxide/Mg Hydroxide (Magnesium Hydrox/Alum Hydrox 30 Ml Oral.Susp) 30 ml PO Q6H PRN PRN Reason: Heartburn/Nausea Escitalopram Oxalate (Escitalopram Oxalate 10 Mg Tablet) 10 mg PO DAILY [facility] Last Admin: 03/19/24 10:17 Dose: 10 mg Fluticasone Propionate (Fluticasone Propionate Nasal 16 Gm [place]) 2 spray NOSTRIL-B DAILY [facility] Last Admin: 03/19/24 10:17 Dose: 2 spray Guaifenesin/Dextromethorphan (Guaifenesin Dm 600/30 1 Tab Tab.Er.12h) 2 tab PO BID PRN PRN Reason: Congestion Last Admin: 03/19/24 10:17 Dose: 2 tab Hydroxyzine HCl (Hydroxyzine Hcl 25 Mg Tablet) 25 mg PO Q6H PRN PRN Reason: Anxiety Last Admin: 03/18/24 18:13 Dose: 25 mg Ibuprofen (Ibuprofen 800 Mg Tablet) 800 mg PO Q8H PRN PRN Reason: Pain, Mild (Pain Scale 1-3) Last Admin: 03/19/24 10:16 Dose: 800 mg Magnesium Hydroxide (Milk Of Magnesia 30 Ml Oral.Susp) 30 ml PO DAILY PRN PRN Reason: Constipation Mirtazapine (Mirtazapine 15 Mg Tablet) 15 mg PO BEDTIME [facility] Last Admin: 03/18/24 20:38 Dose: 15 mg Nicotine (Nicotine 21 Mg Patch.Td24) 21 mg TRANSDERMA DAILY PRN PRN Reason: smoking cessation Nicotine Polacrilex (Nicotine Polacrilex 2 Mg Gum) 4 mg BUCCAL Q2H PRN PRN Reason: Nicotine Cravings Olanzapine (Olanzapine 5 Mg Tablet) 5 mg PO TID PRN PRN Reason: agitation Last Admin: 03/19/24 10:16 Dose: 5 mg Olanzapine (Olanzapine 10 Mg Tablet) 10 mg PO BEDTIME [facility] Last Admin: 03/18/24 20:38 Dose: 10 mg Quetiapine Fumarate (Quetiapine Fumarate 100 Mg Tablet) 100 mg PO BEDTIME [facility] Last Admin: 03/18/24 20:39 Dose: 100 mg Trazodone HCl (Trazodone Hcl 50 Mg Tablet) 50 mg PO BEDTIME MRX1 PRN PRN Reason: Insomnia Allergies Allergies Allergy/AdvReac Type Severity Reaction Status Date / Time No Known Allergies Allergy Verified 03/11/24 18:51 Assessment & Plan Assessment & Plan (1) Suicidal ideation: Status: Acute Code(s): R45.851 - Suicidal ideations (2) Opioid use disorder: Status: Chronic Code(s): F11.99 - Opioid use, unspecified with unspecified opioid-induced disorder (3) Polysubstance (including opioids) dependence w/o physiol dependence: Status: Chronic Code(s): F19.20 - Other psychoactive substance dependence, uncomplicated (4) Schizoaffective disorder: Status: Acute Code(s): F25.9 - Schizoaffective disorder, unspecified Plan Schizoaffective Disorder, Depressed. Opiate use disorder, s/p suicide attempt, Polysubstance Use Disorder. Collateral contacts Diagnostics as needed. Remeron 7.5 mg HS Seroquel 50 mg HS. Aftercare planning. 03/14: Increase Remeron to 15 mg HS Increase Seroquel to 75 mg HS. 03/17/24: Increase Seroquel to 100 mg HS Mucinex prn 03/19: Increase Mirtazapine to 30 mg daily Reason for continued inpatient stay Substantial Risk for: rapid decompensation Time Spent With Patient Time: Total time managing care of this patient today ____ minutes.
[2024-03-19 20:00] VITALS: BP 149/82; PULSE 100; RESP 16; TEMP 36.4; O2SAT 96
[2024-03-19] MEDS: QUEtiapine Fumarate 100 MG TABLET PO (20:43)
[2024-03-19] MEDS: Mirtazapine 30 MG TABLET PO (20:43)
[2024-03-19] MEDS: traZODone HCL 50 MG TABLET PO (20:43)
[2024-03-20 08:00] VITALS: BP 123/80; PULSE 70; RESP 17; TEMP 36.3; O2SAT 96
[2024-03-20] MEDS: Escitalopram Oxalate 10 MG TABLET PO (08:54)
[2024-03-20] MEDS: guaiFENesin DM 600/30 1 TAB TAB.ER.12H 2 TAB PO (08:58)
[2024-03-20] MEDS: Fluticasone Propionate Nasal 16 GM SPRAY 2 SPRAY NOSTRIL-B (08:59)
[2024-03-20] MEDS: Loratadine 10 MG TABLET PO (09:20)
--- NOTE | 2024-03-20 10:53 | P.PNPSI_ITS ---
Subjective Subjective Date of Service: 03/20/24 Reason For Visit: Depression/si Subjective Notes: Conditional Voluntary Healthcare Proxy: No Guardianship: No Medical Problems Affecting Mental Status: No Interim History: Rejected by programs that he has applied to thus far. Team is assisting him with a few more applications. Pt is worried, having no where to go and no community structure/treatment. Continues with anxiety/depressive sx. Reviewed mood stabilizer trials to manage sx. Pt believes he has been on Depakote by history. Discussed Trileptal. Reports nasal congestion, chronic, prior to admission. Claritin trial initiated. Medication Compliance: Yes Side effects from medications: No Attending Groups: Intermittent Review of Systems congestion Medical Review of Systems: unchanged Review of Systems Review of Systems congestion Mental Status Exam Mental Status Exam Patient Appearance: Appropriate Patient Orientation: Person, Place, Time and Situation Level of Consciousness: Alert Patient Behavior: Talkative and Good Eye Contact Mood Description: Depressed Affect Description: Flat Patient Cognition Impaired: No Ability to Follow Directions: Good Speech Pattern: Spontaneous Speech Memory Description: Episodic Impaired Hallucinations: None Delusions: Not Present Perceptual Disturbances: Depersonalization and Derealization Thought Process: Rumination Thought Content: positive for Circumstantial, positive for Perseveration and positive for Suicidal Ideation Depressive Symptoms: Increased Anxiety, Insomnia, Difficulty Sleeping, Feelings of Worthlessness, Unhappiness and Thoughts of /Suicide Judgement: Fair Diagnostics Vital Signs (24Hr): Vital Signs - 24 hr 03/19/24 20:00 03/20/24 08:00 Temperature 97.6 F 97.4 F Pulse Rate 100 70 Respiratory Rate 16 17 Blood Pressure 149/82 H 123/80 Pulse Oximetry 96 96 Oxygen Delivery Method Room Air BMI result Body Mass Index 24.3 Labs 03/11/24 19:02 03/11/24 19:02 Labs: Laboratory Results - last 48 hr 03/18/24 13:49 TSH 0.93 Medications Medications Current Medications Acetaminophen (Acetaminophen 325 Mg Tablet) 650 mg PO Q6H PRN PRN Reason: Headache/Pain Mild Scale (1-3) Last Admin: 03/14/24 13:50 Dose: 650 mg Al Hydroxide/Mg Hydroxide (Magnesium Hydrox/Alum Hydrox 30 Ml Oral.Susp) 30 ml PO Q6H PRN PRN Reason: Heartburn/Nausea Escitalopram Oxalate (Escitalopram Oxalate 10 Mg Tablet) 10 mg PO DAILY [facility] Last Admin: 03/20/24 08:54 Dose: 10 mg Fluticasone Propionate (Fluticasone Propionate Nasal 16 Gm [place]) 2 spray NOSTRIL-B DAILY [facility] Last Admin: 03/20/24 08:59 Dose: 2 spray Guaifenesin/Dextromethorphan (Guaifenesin Dm 600/30 1 Tab Tab.Er.12h) 2 tab PO BID PRN PRN Reason: Congestion Last Admin: 03/20/24 08:58 Dose: 2 tab Hydroxyzine HCl (Hydroxyzine Hcl 25 Mg Tablet) 25 mg PO Q6H PRN PRN Reason: Anxiety Last Admin: 03/18/24 18:13 Dose: 25 mg Ibuprofen (Ibuprofen 800 Mg Tablet) 800 mg PO Q8H PRN PRN Reason: Pain, Mild (Pain Scale 1-3) Last Admin: 03/19/24 10:16 Dose: 800 mg Loratadine (Loratadine 10 Mg Tablet) 10 mg PO DAILY [facility] Last Admin: 03/20/24 09:20 Dose: 10 mg Magnesium Hydroxide (Milk Of Magnesia 30 Ml Oral.Susp) 30 ml PO DAILY PRN PRN Reason: Constipation Mirtazapine (Mirtazapine 30 Mg Tablet) 30 mg PO BEDTIME [facility] Last Admin: 03/19/24 20:43 Dose: 30 mg Nicotine (Nicotine 21 Mg Patch.Td24) 21 mg TRANSDERMA DAILY PRN PRN Reason: smoking cessation Nicotine Polacrilex (Nicotine Polacrilex 2 Mg Gum) 4 mg BUCCAL Q2H PRN PRN Reason: Nicotine Cravings Olanzapine (Olanzapine 5 Mg Tablet) 5 mg PO TID PRN PRN Reason: agitation Last Admin: 03/19/24 19:26 Dose: 5 mg Quetiapine Fumarate (Quetiapine Fumarate 100 Mg Tablet) 100 mg PO BEDTIME [facility] Last Admin: 03/19/24 20:43 Dose: 100 mg Trazodone HCl (Trazodone Hcl 50 Mg Tablet) 50 mg PO BEDTIME MRX1 PRN PRN Reason: Insomnia Last Admin: 03/19/24 20:43 Dose: 50 mg Allergies Allergies Allergy/AdvReac Type Severity Reaction Status Date / Time No Known Allergies Allergy Verified 03/11/24 18:51 Assessment & Plan Assessment & Plan (1) Suicidal ideation: Status: Acute Code(s): R45.851 - Suicidal ideations (2) Opioid use disorder: Status: Chronic Code(s): F11.99 - Opioid use, unspecified with unspecified opioid-induced disorder (3) Polysubstance (including opioids) dependence w/o physiol dependence: Status: Chronic Code(s): F19.20 - Other psychoactive substance dependence, uncomplicated (4) Schizoaffective disorder: Status: Acute Code(s): F25.9 - Schizoaffective disorder, unspecified Plan Schizoaffective Disorder, Depressed. Opiate use disorder, s/p suicide attempt, Polysubstance Use Disorder. Collateral contacts Diagnostics as needed. Remeron 7.5 mg HS Seroquel 50 mg HS. Aftercare planning. 03/14: Increase Remeron to 15 mg HS Increase Seroquel to 75 mg HS. 03/17/24: Increase Seroquel to 100 mg HS Mucinex prn 03/20: Trileptal 450 mg bid Claritin 10 mg daily Reason for continued inpatient stay Substantial Risk for: rapid decompensation Time Spent With Patient Time: Total time managing care of this patient today ____ minutes.
[2024-03-20] MEDS: OLANZapine 5 MG TABLET PO ×2 (11:38→20:37)
[2024-03-20] MEDS: Oxymetazoline HCl 0.05 % Nasal 15 ML SPRAY 2 SPRAY NOSTRIL-B (18:59)
[2024-03-20 20:00] VITALS: BP 135/85; PULSE 91; RESP 16; TEMP 36.8; O2SAT 96
[2024-03-20] MEDS: traZODone HCL 50 MG TABLET PO (20:24)
[2024-03-20] MEDS: QUEtiapine Fumarate 100 MG TABLET PO (20:24)
[2024-03-20] MEDS: Mirtazapine 30 MG TABLET PO (20:24)
[2024-03-20] MEDS: OXcarbazepine 150 MG TABLET 450 MG PO (20:24)
[2024-03-21 08:00] VITALS: BP 133/89; PULSE 94; RESP 17; TEMP 36.9; O2SAT 98
[2024-03-21] MEDS: OXcarbazepine 150 MG TABLET 450 MG PO ×2 (08:49→20:34)
[2024-03-21] MEDS: Oxymetazoline HCl 0.05 % Nasal 15 ML SPRAY 2 SPRAY NOSTRIL-B ×2 (08:50→18:49)
[2024-03-21] MEDS: Fluticasone Propionate Nasal 16 GM SPRAY 2 SPRAY NOSTRIL-B (08:50)
[2024-03-21] MEDS: Escitalopram Oxalate 10 MG TABLET PO (08:50)
[2024-03-21] MEDS: Loratadine 10 MG TABLET PO (08:50)
[2024-03-21] MEDS: Ibuprofen 800 MG TABLET PO (10:14)
--- NOTE | 2024-03-21 13:38 | HO.PSYCHPN ---
Subjective Subjective Date of Service: 03/21/24 Reason For Visit: Depression/si Interim History: met with patient; discussed with team anxious; worried won't get into program. Mood is better, no AVH, no SI. reports back pain and asks for Flexeril. Mental Status Exam Mental Status Exam Patient Appearance: Appropriate Patient Orientation: Person, Place, Time and Situation Level of Consciousness: Alert Patient Behavior: Talkative and Good Eye Contact Mood Description: Depressed Affect Description: Flat Patient Cognition Impaired: No Ability to Follow Directions: Good Speech Pattern: Spontaneous Speech Memory Description: Episodic Impaired Hallucinations: None Delusions: Not Present Perceptual Disturbances: Depersonalization and Derealization Thought Process: Rumination Thought Content: positive for Circumstantial, positive for Perseveration and positive for Suicidal Ideation Depressive Symptoms: Increased Anxiety, Insomnia, Difficulty Sleeping, Feelings of Worthlessness, Unhappiness and Thoughts of /Suicide Judgement: Fair Diagnostics Vital Signs (24Hr): Vital Signs - 24 hr 03/20/24 20:00 03/21/24 08:00 Temperature 98.2 F 98.4 F Pulse Rate 91 94 Respiratory Rate 16 17 Blood Pressure 135/85 133/89 Pulse Oximetry 96 98 Oxygen Delivery Method Room Air BMI result Body Mass Index 24.3 Labs 03/11/24 19:02 03/11/24 19:02 Medications Medications Current Medications Acetaminophen (Acetaminophen 325 Mg Tablet) 650 mg PO Q6H PRN PRN Reason: Headache/Pain Mild Scale (1-8) Al Hydroxide/Mg Hydroxide (Magnesium Hydrox/Alum Hydrox 30 Ml Oral.Susp) 30 ml PO Q6H PRN PRN Reason: Heartburn/Nausea Escitalopram Oxalate (Escitalopram Oxalate 10 Mg Tablet) 10 mg PO DAILY [facility] [place] Last Admin: 03/21/24 08:50 Dose: 10 mg Fluticasone Propionate (Fluticasone Propionate Nasal 16 Gm [place]) 2 spray NOSTRIL-B DAILY [facility] Last Admin: 03/21/24 08:50 Dose: 2 spray Guaifenesin/Dextromethorphan (Guaifenesin Dm 600/30 1 Tab Tab.Er.12h) 2 tab PO BID PRN PRN Reason: Congestion Last Admin: 03/20/24 08:58 Dose: 2 tab Hydroxyzine HCl (Hydroxyzine Hcl 25 Mg Tablet) 25 mg PO Q6H PRN PRN Reason: Anxiety Last Admin: 03/18/24 18:13 Dose: 25 mg Ibuprofen (Ibuprofen 800 Mg Tablet) 800 mg PO Q8H PRN PRN Reason: Pain, Mild (Pain Scale 1-3) Last Admin: 03/21/24 10:14 Dose: 800 mg Loratadine (Loratadine 10 Mg Tablet) 10 mg PO DAILY [facility] [place] Last Admin: 03/21/24 08:50 Dose: 10 mg Magnesium Hydroxide (Milk Of Magnesia 30 Ml Oral.Susp) 30 ml PO DAILY PRN PRN Reason: Constipation Mirtazapine (Mirtazapine 30 Mg Tablet) 30 mg PO BEDTIME [facility] Last Admin: 03/20/24 20:24 Dose: 30 mg Nicotine (Nicotine 21 Mg Patch.Td24) 21 mg TRANSDERMA DAILY PRN PRN Reason: smoking cessation Nicotine Polacrilex (Nicotine Polacrilex 2 Mg Gum) 4 mg BUCCAL Q2H PRN PRN Reason: Nicotine Cravings Olanzapine (Olanzapine 5 Mg Tablet) 5 mg PO TID PRN PRN Reason: agitation Last Admin: 03/20/24 20:37 Dose: 5 mg Oxcarbazepine (Oxcarbazepine 150 Mg Tablet) 450 mg PO BID [facility] [place] Last Admin: 03/21/24 08:49 Dose: 450 mg Oxymetazoline HCl (Oxymetazoline Hcl 0.05 % Nasal 15 Ml [place]) 2 spray NOSTRIL-B BID PRN PRN Reason: Congestion Stop: 03/23/24 14:37 Last Admin: 03/21/24 08:50 Dose: 2 spray Quetiapine Fumarate (Quetiapine Fumarate 100 Mg Tablet) 100 mg PO BEDTIME [facility] Last Admin: 03/20/24 20:24 Dose: 100 mg Trazodone HCl (Trazodone Hcl 50 Mg Tablet) 50 mg PO BEDTIME MRX1 PRN PRN Reason: Insomnia Last Admin: 03/20/24 20:24 Dose: 50 mg Allergies Allergies Allergy/AdvReac Type Severity Reaction Status Date / Time No Known Allergies Allergy Verified 03/11/24 18:51 Assessment & Plan Assessment & Plan (1) Schizoaffective disorder: Status: Acute Code(s): F25.9 - Schizoaffective disorder, unspecified (2) Suicidal ideation: Status: Acute Code(s): R45.851 - Suicidal ideations (3) Opioid use disorder: Status: Chronic Code(s): F11.99 - Opioid use, unspecified with unspecified opioid-induced disorder (4) Polysubstance (including opioids) dependence w/o physiol dependence: Status: Chronic Code(s): F19.20 - Other psychoactive substance dependence, uncomplicated Plan Schizoaffective Disorder, Depressed. Opiate use disorder, s/p suicide attempt, Polysubstance Use Disorder. Collateral contacts Diagnostics as needed. Remeron 7.5 mg HS Seroquel 50 mg HS. Aftercare planning. 03/14: Increase Remeron to 15 mg HS Increase Seroquel to 75 mg HS. 03/17/24: Increase Seroquel to 100 mg HS Mucinex prn 03/20: Trileptal 450 mg bid Claritin 10 mg daily 03/21 added Flexeril prn Patient educated on: diagnosis, medication risk/benefits, substance abuse and medical condition Informed Consent: understands Reason for continued inpatient stay Substantial Risk for: stable for discharge and med/psych decompensation Time Spent With Patient Time: Total time managing care of this patient today ____ minutes.
[2024-03-21] MEDS: Cyclobenzaprine HCl 10 MG TABLET PO ×2 (14:25→20:39)
[2024-03-21 20:00] VITALS: BP 148/90; PULSE 94; RESP 16; TEMP 37; O2SAT 97
[2024-03-21] MEDS: OLANZapine 5 MG TABLET PO (20:34)
[2024-03-21] MEDS: QUEtiapine Fumarate 100 MG TABLET PO (20:34)
[2024-03-21] MEDS: traZODone HCL 50 MG TABLET PO (20:34)
[2024-03-21] MEDS: Mirtazapine 30 MG TABLET PO (20:34)
[2024-03-21] MEDS: Acetaminophen 325 MG TABLET 650 MG PO (20:39)
[2024-03-22 08:00] VITALS: BP 120/60; PULSE 88; RESP 18; TEMP 36.9; O2SAT 100
[2024-03-22] MEDS: Escitalopram Oxalate 10 MG TABLET PO (09:10)
[2024-03-22] MEDS: Fluticasone Propionate Nasal 16 GM SPRAY 2 SPRAY NOSTRIL-B (09:10)
[2024-03-22] MEDS: Loratadine 10 MG TABLET PO (09:10)
[2024-03-22] MEDS: OXcarbazepine 150 MG TABLET 450 MG PO ×2 (09:10→20:35)
[2024-03-22] MEDS: Ibuprofen 800 MG TABLET PO ×2 (09:14→20:37)
[2024-03-22] MEDS: Oxymetazoline HCl 0.05 % Nasal 15 ML SPRAY 2 SPRAY NOSTRIL-B ×2 (09:14→16:32)
[2024-03-22] MEDS: Cyclobenzaprine HCl 10 MG TABLET PO ×3 (09:15→20:36)
--- NOTE | 2024-03-22 11:43 | P.PNPSI_ITS ---
Subjective Subjective Date of Service: 03/22/24 Reason For Visit: Depression/si Interim History: Met with patient; discussed with team Reports mood is better. Overall anxiety better though worried about getting into a program which he very much wants. Feels that medications are helpful. No SI/HI/AVH. Patient is appropriate with peers and staff on the unit, in good behavioral and impulse control. He complained of sore throat, RSV/COVID/strep test ordered and negative; he thinks it is just because of the dry air. Crew Clerk looked at patient's left foot lesion which remains open but no signs of infection wound nurse following. Mental Status Exam Mental Status Exam Patient Appearance: Appropriate Patient Orientation: Person, Place, Time and Situation Level of Consciousness: Alert Patient Behavior: Talkative and Good Eye Contact Mood Description: Calm Affect Description: Calm and Appropriate Patient Cognition Impaired: No Ability to Follow Directions: Good Speech Pattern: Spontaneous Speech Memory Description: Episodic Impaired Hallucinations: None Delusions: Not Present Perceptual Disturbances: Depersonalization and Derealization Thought Process: Intact and Goal Oriented Thought Content: positive for Goal Oriented and positive for Suicidal Ideation (denies) Judgement: Fair Diagnostics Vital Signs (24Hr): Vital Signs - 24 hr 03/21/24 20:00 03/22/24 08:00 Temperature 98.6 F 98.4 F Pulse Rate 94 88 Respiratory Rate 16 18 Blood Pressure 148/90 H 120/60 Pulse Oximetry 97 100 Oxygen Delivery Method Room Air Room Air BMI result Body Mass Index 24.3 Labs 03/11/24 19:02 03/11/24 19:02 Medications Medications Current Medications Acetaminophen (Acetaminophen 325 Mg Tablet) 650 mg PO Q6H PRN PRN Reason: Headache/Pain Mild Scale (1-8) Last Admin: 03/21/24 20:39 Dose: 650 mg Al Hydroxide/Mg Hydroxide (Magnesium Hydrox/Alum Hydrox 30 Ml Oral.Susp) 30 ml PO Q6H PRN PRN Reason: Heartburn/Nausea Cyclobenzaprine HCl (Cyclobenzaprine Hcl 10 Mg Tablet) 10 mg PO TID PRN PRN Reason: back pain Last Admin: 03/22/24 09:15 Dose: 10 mg Escitalopram Oxalate (Escitalopram Oxalate 10 Mg Tablet) 10 mg PO DAILY [facility] Last Admin: 03/22/24 09:10 Dose: 10 mg Fluticasone Propionate (Fluticasone Propionate Nasal 16 Gm [place]) 2 spray NOSTRIL-B DAILY [facility] Last Admin: 03/22/24 09:10 Dose: 2 spray Guaifenesin/Dextromethorphan (Guaifenesin Dm 600/30 1 Tab Tab.Er.12h) 2 tab PO BID PRN PRN Reason: Congestion Last Admin: 03/20/24 08:58 Dose: 2 tab Hydroxyzine HCl (Hydroxyzine Hcl 25 Mg Tablet) 25 mg PO Q6H PRN PRN Reason: Anxiety Last Admin: 03/18/24 18:13 Dose: 25 mg Ibuprofen (Ibuprofen 800 Mg Tablet) 800 mg PO Q8H PRN PRN Reason: Pain, Mild (Pain Scale 1-3) Last Admin: 03/22/24 09:14 Dose: 800 mg Loratadine (Loratadine 10 Mg Tablet) 10 mg PO DAILY [facility] Last Admin: 03/22/24 09:10 Dose: 10 mg Magnesium Hydroxide (Milk Of Magnesia 30 Ml Oral.Susp) 30 ml PO DAILY PRN PRN Reason: Constipation Mirtazapine (Mirtazapine 30 Mg Tablet) 30 mg PO BEDTIME [facility] Last Admin: 03/21/24 20:34 Dose: 30 mg Nicotine (Nicotine 21 Mg Patch.Td24) 21 mg TRANSDERMA DAILY PRN PRN Reason: smoking cessation Nicotine Polacrilex (Nicotine Polacrilex 2 Mg Gum) 4 mg BUCCAL Q2H PRN PRN Reason: Nicotine Cravings Olanzapine (Olanzapine 5 Mg Tablet) 5 mg PO TID PRN PRN Reason: agitation Last Admin: 03/21/24 20:34 Dose: 5 mg Oxcarbazepine (Oxcarbazepine 150 Mg Tablet) 450 mg PO BID [facility] Last Admin: 03/22/24 09:10 Dose: 450 mg Oxymetazoline HCl (Oxymetazoline Hcl 0.05 % Nasal 15 Ml [place]) 2 spray NOSTRIL- B BID PRN PRN Reason: Congestion Stop: 03/23/24 14:37 Last Admin: 03/22/24 09:14 Dose: 2 spray Quetiapine Fumarate (Quetiapine Fumarate 100 Mg Tablet) 100 mg PO BEDTIME [facility] Last Admin: 03/21/24 20:34 Dose: 100 mg Trazodone HCl (Trazodone Hcl 50 Mg Tablet) 50 mg PO BEDTIME MRX1 PRN PRN Reason: Insomnia Last Admin: 03/21/24 20:34 Dose: 50 mg Allergies Allergies Allergy/AdvReac Type Severity Reaction Status Date / Time No Known Allergies Allergy Verified 03/11/24 18:51 Assessment & Plan Assessment & Plan (1) Schizoaffective disorder: Status: Acute Code(s): F25.9 - Schizoaffective disorder, unspecified (2) Suicidal ideation: Status: Acute Code(s): R45.851 - Suicidal ideations (3) Opioid use disorder: Status: Chronic Code(s): F11.99 - Opioid use, unspecified with unspecified opioid-induced disorder (4) Polysubstance (including opioids) dependence w/o physiol dependence: Status: Chronic Code(s): F19.20 - Other psychoactive substance dependence, uncomplicated Plan Schizoaffective Disorder, Depressed. Opiate use disorder, s/p suicide attempt, Polysubstance Use Disorder. Collateral contacts Diagnostics as needed. Remeron 7.5 mg HS Seroquel 50 mg HS. Aftercare planning. 03/14: Increase Remeron to 15 mg HS Increase Seroquel to 75 mg HS. 03/17/24: Increase Seroquel to 100 mg HS Mucinex prn 03/20: Trileptal 450 mg bid Claritin 10 mg daily 03/21 added Flexeril prn 03/22 continue current treatment plan; patient seems to be improving Remains in good behavioral and impulse control in the unit, appropriate with peers and staff. Patient educated on: diagnosis, medication risk/benefits, therapeutic strategies and medical condition Informed Consent: understands Reason for continued inpatient stay Substantial Risk for: stable for discharge Time Spent With Patient Time: Total time managing care of this patient today ____ minutes.
[2024-03-22] MEDS: Throat Lozenge, Medicated LOZENGE 1 LOZENGE MUCOUS MEM ×2 (12:01→19:05)
[2024-03-22 12:23] LABS: IDNOW Serial# 58CA691E; Strep A Nucleic Acid Negative (Negative)
[2024-03-22 13:02] LABS: Influenza A PCR NEGATIVE (Negative); Influenza B PCR NEGATIVE (Negative); Resp Syncy Virus RNA Qual PCR NEGATIVE (Negative); SARS COV2 PCR INHOUSE NEGATIVE (Negative)
[2024-03-22] MEDS: Acetaminophen 325 MG TABLET 650 MG PO (14:17)
[2024-03-22] MEDS: OLANZapine 5 MG TABLET PO ×2 (15:30→20:36)
[2024-03-22] MEDS: Magnesium Hydrox/Alum Hydrox 30 ML ORAL.SUSP PO (16:32)
[2024-03-22 20:00] VITALS: BP 137/85; PULSE 88; TEMP 37; O2SAT 96
[2024-03-22] MEDS: Mirtazapine 30 MG TABLET PO (20:36)
[2024-03-22] MEDS: QUEtiapine Fumarate 100 MG TABLET PO (20:37)
[2024-03-23 08:00] VITALS: BP 149/75; PULSE 75; RESP 16; TEMP 35.8; O2SAT 97
[2024-03-23] MEDS: Oxymetazoline HCl 0.05 % Nasal 15 ML SPRAY 2 SPRAY NOSTRIL-B (09:02)
[2024-03-23] MEDS: Fluticasone Propionate Nasal 16 GM SPRAY 2 SPRAY NOSTRIL-B (09:02)
[2024-03-23] MEDS: Loratadine 10 MG TABLET PO (09:03)
[2024-03-23] MEDS: Escitalopram Oxalate 10 MG TABLET PO (09:03)
[2024-03-23] MEDS: OXcarbazepine 150 MG TABLET 450 MG PO ×2 (09:03→20:27)
[2024-03-23] MEDS: Cyclobenzaprine HCl 10 MG TABLET PO ×2 (09:46→15:52)
--- NOTE | 2024-03-23 11:26 | HO.PSYCHPN ---
Subjective Subjective Date of Service: 03/23/24 Reason For Visit: Depression/si Interim History: Met with patient; discussed with team Patient reports overall doing much better. Still trouble sleeping with worries at bedtime and waking up frequently. Discussed medication regimen patient agrees to trial of clonidine scheduled at bedtime. Mental Status Exam Mental Status Exam Patient Appearance: Appropriate Patient Orientation: Person, Place, Time and Situation Level of Consciousness: Alert Patient Behavior: Appropriate and Good Eye Contact Mood Description: Calm ( better ) Affect Description: Calm and Appropriate Patient Cognition Impaired: No Ability to Follow Directions: Good Speech Pattern: Spontaneous Speech Memory Description: Episodic Impaired Hallucinations: None Delusions: Not Present Thought Process: Intact and Goal Oriented Thought Content: positive for Goal Oriented and positive for Suicidal Ideation (denies) Judgement: Fair Diagnostics Vital Signs (24Hr): Vital Signs - 24 hr 03/22/24 20:00 03/23/24 08:00 Temperature 98.6 F 96.4 F L Pulse Rate 88 75 Respiratory Rate 16 Blood Pressure 137/85 149/75 H Pulse Oximetry 96 97 Oxygen Delivery Method Room Air Room Air BMI result Body Mass Index 24.3 Labs 03/11/24 19:02 03/11/24 19:02 Labs: Laboratory Results - last 48 hr 03/22/24 12:00 Influenza Type A (PCR) NEGATIVE Influenza Type B (PCR) NEGATIVE RSV RNA Qual (PCR) NEGATIVE SARS-CoV-2 RNA (RT-PCR) NEGATIVE S. pyogenes GrpA PRERNA Negative Medications Medications Current Medications Acetaminophen (Acetaminophen 325 Mg Tablet) 650 mg PO Q6H PRN PRN Reason: Headache/Pain Mild Scale (1-8) Last Admin: 03/22/24 14:17 Dose: 650 mg Al Hydroxide/Mg Hydroxide (Magnesium Hydrox/Alum Hydrox 30 Ml Oral.Susp) 30 ml PO Q6H PRN PRN Reason: Heartburn/Nausea Last Admin: 03/22/24 16:32 Dose: 30 ml Benzocaine (Throat Lozenge, Medicated Lozenge) 1 lozenge MUCOUS MEM Q2H PRN PRN Reason: Sore Throat Last Admin: 03/22/24 19:05 Dose: 1 lozenge Cyclobenzaprine HCl (Cyclobenzaprine Hcl 10 Mg Tablet) 10 mg PO TID PRN PRN Reason: back pain Last Admin: 03/23/24 09:46 Dose: 10 mg Escitalopram Oxalate (Escitalopram Oxalate 10 Mg Tablet) 10 mg PO DAILY [facility] Last Admin: 03/23/24 09:03 Dose: 10 mg Fluticasone Propionate (Fluticasone Propionate Nasal 16 Gm [place]) 2 spray NOSTRIL-B DAILY [facility] Last Admin: 03/23/24 09:02 Dose: 2 spray Guaifenesin/Dextromethorphan (Guaifenesin Dm 600/30 1 Tab Tab.Er.12h) 2 tab PO BID PRN PRN Reason: Congestion Last Admin: 03/20/24 08:58 Dose: 2 tab Hydroxyzine HCl (Hydroxyzine Hcl 25 Mg Tablet) 25 mg PO Q6H PRN PRN Reason: Anxiety Last Admin: 03/18/24 18:13 Dose: 25 mg Ibuprofen (Ibuprofen 800 Mg Tablet) 800 mg PO Q8H PRN PRN Reason: Pain, Mild (Pain Scale 1-3) Last Admin: 03/22/24 20:37 Dose: 800 mg Loratadine (Loratadine 10 Mg Tablet) 10 mg PO DAILY [facility] Last Admin: 03/23/24 09:03 Dose: 10 mg Magnesium Hydroxide (Milk Of Magnesia 30 Ml Oral.Susp) 30 ml PO DAILY PRN PRN Reason: Constipation Mirtazapine (Mirtazapine 30 Mg Tablet) 30 mg PO BEDTIME [facility] Last Admin: 03/22/24 20:36 Dose: 30 mg Nicotine (Nicotine 21 Mg Patch.Td24) 21 mg TRANSDERMA DAILY PRN PRN Reason: smoking cessation Nicotine Polacrilex (Nicotine Polacrilex 2 Mg Gum) 4 mg BUCCAL Q2H PRN PRN Reason: Nicotine Cravings Olanzapine (Olanzapine 5 Mg Tablet) 5 mg PO TID PRN PRN Reason: agitation Last Admin: 03/22/24 20:36 Dose: 5 mg Oxcarbazepine (Oxcarbazepine 150 Mg Tablet) 450 mg PO BID [facility] Last Admin: 03/23/24 09:03 Dose: 450 mg Oxymetazoline HCl (Oxymetazoline Hcl 0.05 % Nasal 15 Ml [place]) 2 spray NOSTRIL-B BID PRN PRN Reason: Congestion Stop: 03/23/24 14:37 Last Admin: 03/23/24 09:02 Dose: 2 spray Quetiapine Fumarate (Quetiapine Fumarate 100 Mg Tablet) 100 mg PO BEDTIME [facility] Last Admin: 03/22/24 20:37 Dose: 100 mg Trazodone HCl (Trazodone Hcl 50 Mg Tablet) 50 mg PO BEDTIME MRX1 PRN PRN Reason: Insomnia Last Admin: 03/21/24 20:34 Dose: 50 mg Allergies Allergies Allergy/AdvReac Type Severity Reaction Status Date / Time No Known Allergies Allergy Verified 03/11/24 18:51 Assessment & Plan Assessment & Plan (1) Schizoaffective disorder: Status: Acute Code(s): F25.9 - Schizoaffective disorder, unspecified (2) Suicidal ideation: Status: Acute Code(s): R45.851 - Suicidal ideations (3) Opioid use disorder: Status: Chronic Code(s): F11.99 - Opioid use, unspecified with unspecified opioid-induced disorder (4) Polysubstance (including opioids) dependence w/o physiol dependence: Status: Chronic Code(s): F19.20 - Other psychoactive substance dependence, uncomplicated Plan Schizoaffective Disorder, Depressed. Opiate use disorder, s/p suicide attempt, Polysubstance Use Disorder. Collateral contacts Diagnostics as needed. Remeron 7.5 mg HS Seroquel 50 mg HS. Aftercare planning. 03/14: Increase Remeron to 15 mg HS Increase Seroquel to 75 mg HS. 03/17/24: Increase Seroquel to 100 mg HS Mucinex prn 03/20: Trileptal 450 mg bid Claritin 10 mg daily 03/21 added Flexeril prn 03/22 continue current treatment plan; patient seems to be improving Remains in good behavioral and impulse control in the unit, appropriate with peers and staff. 03/23; remains doing better. Struggle with insomnia; agrees to adding clonidine scheduled at bedtime Patient educated on: diagnosis and medication risk/benefits Informed Consent: understands Reason for continued inpatient stay Substantial Risk for: stable for discharge Time Spent With Patient Time: Total time managing care of this patient today ____ minutes.
[2024-03-23 20:00] VITALS: BP 131/87; PULSE 94; RESP 15; TEMP 36.8; O2SAT 96
[2024-03-23] MEDS: QUEtiapine Fumarate 100 MG TABLET PO (20:28)
[2024-03-23] MEDS: Mirtazapine 30 MG TABLET PO (20:28)
[2024-03-23] MEDS: traZODone HCL 50 MG TABLET PO (20:28)
[2024-03-23] MEDS: cloNIDine HCL 0.1 MG TABLET PO (20:28)
[2024-03-24 08:00] VITALS: BP 128/74; PULSE 82; RESP 16; TEMP 36.1; O2SAT 96
[2024-03-24] MEDS: Fluticasone Propionate Nasal 16 GM SPRAY 2 SPRAY NOSTRIL-B (08:43)
[2024-03-24] MEDS: Loratadine 10 MG TABLET PO (08:44)
[2024-03-24] MEDS: Escitalopram Oxalate 10 MG TABLET PO (08:44)
[2024-03-24] MEDS: OXcarbazepine 150 MG TABLET 450 MG PO ×2 (08:44→20:33)
[2024-03-24] MEDS: guaiFENesin DM 600/30 1 TAB TAB.ER.12H 2 TAB PO (09:02)
[2024-03-24] MEDS: Cyclobenzaprine HCl 10 MG TABLET PO ×2 (09:48→14:15)
[2024-03-24] MEDS: OLANZapine 5 MG TABLET PO ×2 (11:03→20:34)
[2024-03-24] MEDS: Pseudoephedrine HCL 30 MG TABLET PO (11:03)
--- NOTE | 2024-03-24 16:46 | HO.PSYCHPN ---
Subjective Subjective Date of Service: 03/24/24 Reason For Visit: Depression/si Subjective Notes: Conditional Voluntary Healthcare Proxy: No Guardianship: No Medical Problems Affecting Mental Status: No Interim History: Accepted to [facility] with much relief. Sleep continues to be difficult. Congestion continues to be present. Sudafed trial ordered. Discussed with pt an OP ENT consult and MAD[facility] eval. He agrees to allow scheduling. Medication Compliance: Yes Side effects from medications: No Attending Groups: Yes Review of Systems Acute medical concerns: No Medical Review of Systems: unchanged Review of Systems Review of Systems congestion Yes all other systems are reviewed and are negative Mental Status Exam Mental Status Exam Patient Appearance: Appropriate Patient Orientation: Person, Place, Time and Situation Level of Consciousness: Alert Patient Behavior: Talkative and Good Eye Contact Mood Description: Anxious and Apprehensive Affect Description: Anxious and Apprehensive Patient Cognition Impaired: No Ability to Follow Directions: Good Speech Pattern: Spontaneous Speech Memory Description: Intact Hallucinations: None Delusions: Not Present Thought Process: Distracted Thought Content: positive for Perseveration Depressive Symptoms: Increased Anxiety Abnormal Motor Activity Signs and Symptoms: Restlessness Judgement: Good Diagnostics Vital Signs (24Hr): Vital Signs - 24 hr 03/23/24 20:00 03/24/24 08:00 Temperature 98.2 F 96.9 F Pulse Rate 94 82 Respiratory Rate 15 16 Blood Pressure 131/87 128/74 Pulse Oximetry 96 96 Oxygen Delivery Method Room Air BMI result Body Mass Index 24.3 Labs 03/11/24 19:02 03/11/24 19:02 Medications Medications Current Medications Acetaminophen (Acetaminophen 325 Mg Tablet) 650 mg PO Q6H PRN PRN Reason: Headache/Pain Mild Scale (1-8) Last Admin: 03/22/24 14:17 Dose: 650 mg Al Hydroxide/Mg Hydroxide (Magnesium Hydrox/Alum Hydrox 30 Ml Oral.Susp) 30 ml PO Q6H PRN PRN Reason: Heartburn/Nausea Last Admin: 03/22/24 16:32 Dose: 30 ml Benzocaine (Throat Lozenge, Medicated Lozenge) 1 lozenge MUCOUS MEM Q2H PRN PRN Reason: Sore Throat Last Admin: 03/22/24 19:05 Dose: 1 lozenge Clonidine HCl (Clonidine Hcl 0.1 Mg Tablet) 0.1 mg PO BEDTIME [facility]; Protocol Last Admin: 07/28/24 20:28 Dose: 0.1 mg Cyclobenzaprine HCl (Cyclobenzaprine Hcl 10 Mg Tablet) 10 mg PO TID PRN PRN Reason: back pain Last Admin: 03/24/24 14:15 Dose: 10 mg Escitalopram Oxalate (Escitalopram Oxalate 10 Mg Tablet) 10 mg PO DAILY [facility] Last Admin: 03/24/24 08:44 Dose: 10 mg Fluticasone Propionate (Fluticasone Propionate Nasal 16 Gm [place]) 2 spray NOSTRIL-B DAILY [facility] Last Admin: 03/24/24 08:43 Dose: 2 spray Guaifenesin/Dextromethorphan (Guaifenesin Dm 600/30 1 Tab Tab.Er.12h) 2 tab PO BID PRN PRN Reason: Congestion Last Admin: 03/24/24 09:02 Dose: 2 tab Hydroxyzine HCl (Hydroxyzine Hcl 25 Mg Tablet) 25 mg PO Q6H PRN PRN Reason: Anxiety Last Admin: 03/18/24 18:13 Dose: 25 mg Ibuprofen (Ibuprofen 800 Mg Tablet) 800 mg PO Q8H PRN PRN Reason: Pain, Mild (Pain Scale 1-3) Last Admin: 03/22/24 20:37 Dose: 800 mg Loratadine (Loratadine 10 Mg Tablet) 10 mg PO DAILY [facility] Last Admin: 03/24/24 08:44 Dose: 10 mg Magnesium Hydroxide (Milk Of Magnesia 30 Ml Oral.Susp) 30 ml PO DAILY PRN PRN Reason: Constipation Mirtazapine (Mirtazapine 30 Mg Tablet) 30 mg PO BEDTIME [facility] Last Admin: 03/23/24 20:28 Dose: 30 mg Nicotine (Nicotine 21 Mg Patch.Td24) 21 mg TRANSDERMA DAILY PRN PRN Reason: smoking cessation Nicotine Polacrilex (Nicotine Polacrilex 2 Mg Gum) 4 mg BUCCAL Q2H PRN PRN Reason: Nicotine Cravings Olanzapine (Olanzapine 5 Mg Tablet) 5 mg PO TID PRN PRN Reason: agitation Last Admin: 03/24/24 11:03 Dose: 5 mg Oxcarbazepine (Oxcarbazepine 150 Mg Tablet) 450 mg PO BID [facility] Last Admin: 03/24/24 08:44 Dose: 450 mg Oxymetazoline HCl (Oxymetazoline Hcl 0.05 % Nasal 15 Ml [place]) 2 spray NOSTRIL-B BID PRN PRN Reason: Congestion Stop: 03/27/24 10:04 Pseudoephedrine HCl (Pseudoephedrine Hcl 30 Mg Tablet) 30 mg PO Q6H PRN PRN Reason: decongestion Last Admin: 03/24/24 11:03 Dose: 30 mg Quetiapine Fumarate (Quetiapine Fumarate 100 Mg Tablet) 100 mg PO BEDTIME [facility] Last Admin: 03/23/24 20:28 Dose: 100 mg Trazodone HCl (Trazodone Hcl 50 Mg Tablet) 50 mg PO BEDTIME MRX1 PRN PRN Reason: Insomnia Last Admin: 03/23/24 20:28 Dose: 50 mg Allergies Allergies Allergy/AdvReac Type Severity Reaction Status Date / Time No Known Allergies Allergy Verified 03/11/24 18:51 Assessment & Plan Assessment & Plan (1) Schizoaffective disorder: Status: Acute Code(s): F25.9 - Schizoaffective disorder, unspecified (2) Suicidal ideation: Status: Acute Code(s): R45.851 - Suicidal ideations (3) Opioid use disorder: Status: Chronic Code(s): F11.99 - Opioid use, unspecified with unspecified opioid-induced disorder (4) Polysubstance (including opioids) dependence w/o physiol dependence: Status: Chronic Code(s): F19.20 - Other psychoactive substance dependence, uncomplicated Plan Schizoaffective Disorder, Depressed. Opiate use disorder, s/p suicide attempt, Polysubstance Use Disorder. Collateral contacts Diagnostics as needed. Remeron 7.5 mg HS Seroquel 50 mg HS. Aftercare planning. 03/14: Increase Remeron to 15 mg HS Increase Seroquel to 75 mg HS. 03/17/24: Increase Seroquel to 100 mg HS Mucinex prn 03/20: Trileptal 450 mg bid Claritin 10 mg daily 03/21 added Flexeril prn 03/22 continue current treatment plan; patient seems to be improving Remains in good behavioral and impulse control in the unit, appropriate with peers and staff. 03/23; remains doing better. Struggle with insomnia; agrees to adding clonidine scheduled at bedtime 03/24: Accepted to [facility] for this week. Will scheduled ENT Consult and Sleep Study for OP. Informed Consent: understands Reason for continued inpatient stay Substantial Risk for: rapid decompensation Time Spent With Patient Time: Total time managing care of this patient today ____ minutes.
[2024-03-24] MEDS: Oxymetazoline HCl 0.05 % Nasal 15 ML SPRAY 2 SPRAY NOSTRIL-B (16:56)
[2024-03-24 20:00] VITALS: BP 152/94; PULSE 95; RESP 16; TEMP 36.8; O2SAT 94
[2024-03-24] MEDS: Magnesium Hydrox/Alum Hydrox 30 ML ORAL.SUSP PO (20:04)
[2024-03-24] MEDS: cloNIDine HCL 0.1 MG TABLET PO (20:34)
[2024-03-24] MEDS: Mirtazapine 30 MG TABLET PO (20:34)
[2024-03-24] MEDS: QUEtiapine Fumarate 100 MG TABLET PO (20:34)
[2024-03-25 08:00] VITALS: BP 130/76; PULSE 82; RESP 18; TEMP 36.6; O2SAT 96
[2024-03-25] MEDS: Escitalopram Oxalate 10 MG TABLET PO (08:30)
[2024-03-25] MEDS: OXcarbazepine 150 MG TABLET 450 MG PO ×2 (08:30→20:50)
[2024-03-25] MEDS: Loratadine 10 MG TABLET PO (08:30)
[2024-03-25] MEDS: Fluticasone Propionate Nasal 16 GM SPRAY 2 SPRAY NOSTRIL-B (08:36)
[2024-03-25] MEDS: Oxymetazoline HCl 0.05 % Nasal 15 ML SPRAY 2 SPRAY NOSTRIL-B ×2 (08:37→13:12)
[2024-03-25] MEDS: Cyclobenzaprine HCl 10 MG TABLET PO (09:25)
[2024-03-25] MEDS: Pseudoephedrine HCL 30 MG TABLET PO (12:00)
[2024-03-25] MEDS: guaiFENesin DM 600/30 1 TAB TAB.ER.12H 2 TAB PO (13:12)
--- NOTE | 2024-03-25 14:16 | PM.EVENT ---
Event Note Date of Service: 03/25/24 Event Note: Pt with persistent congestion. Negative for COVID, Flu, RSV on 03/22. Would repeat (ordered). Continue with therapies as orderd- claritin, flonase, guaifenesin. Can continue using afrin and sudafed for no more than 3 days (stop dates added). Otherwise outpatient follow up with ENT. Thank you for allowing me to participate in this consult. Signing off at this time. Please do not hesitate to call for further questions or for any acute medical issues Time Spent With Patient Time: Total time managing care of this patient today ____ minutes.
[2024-03-25] MEDS: Lidocaine 4 % Patch ADH..PATCH 1 PATCH TRANSDERMA (14:32)
--- NOTE | 2024-03-25 14:46 | P.PNPSI_ITS ---
Subjective Subjective Date of Service: 03/25/24 Reason For Visit: Depression/si Subjective Notes: Conditional Voluntary Healthcare Proxy: No Guardianship: No Medical Problems Affecting Mental Status: No Interim History: Congestion persists. Will schedule OP ENT eval. Seen by hospitalist which is much appreciated. Depression is a 4 today. Back pain 8. Will begin Lidocaine Patch for pain. Will increase Lexapro to 15 mg. Pt pleased to be going to [facility] on 03/27. Medication Compliance: Yes Side effects from medications: No Attending Groups: Intermittent Review of Systems Acute medical concerns: No Medical Review of Systems: unchanged Review of Systems Review of Systems Persistent congestion Back pain Mental Status Exam Mental Status Exam Patient Appearance: Appropriate Patient Orientation: Person, Place, Time and Situation Level of Consciousness: Alert Patient Behavior: Talkative and Good Eye Contact Mood Description: Apprehensive Affect Description: Apprehensive Patient Cognition Impaired: No Ability to Follow Directions: Good Speech Pattern: Spontaneous Speech Memory Description: Intact Hallucinations: None Delusions: Not Present Thought Content: positive for Perseveration Judgement: Good Diagnostics Vital Signs (24Hr): Vital Signs - 24 hr 03/24/24 20:00 03/25/24 08:00 Temperature 98.2 F 97.8 F Pulse Rate 95 82 Respiratory Rate 16 18 Blood Pressure 152/94 H 130/76 Pulse Oximetry 94 96 Oxygen Delivery Method Room Air Room Air BMI result Body Mass Index 24.3 Labs 03/11/24 19:02 03/11/24 19:02 Medications Medications Current Medications Acetaminophen (Acetaminophen 325 Mg Tablet) 650 mg PO Q6H PRN PRN Reason: Headache/Pain Mild Scale (1-8) Last Admin: 03/22/24 14:17 Dose: 650 mg Al Hydroxide/Mg Hydroxide (Magnesium Hydrox/Alum Hydrox 30 Ml Oral.Susp) 30 ml PO Q6H PRN PRN Reason: Heartburn/Nausea Last Admin: 03/24/24 20:04 Dose: 30 ml Benzocaine (Throat Lozenge, Medicated Lozenge) 1 lozenge MUCOUS MEM Q2H PRN PRN Reason: Sore Throat Last Admin: 03/22/24 19:05 Dose: 1 lozenge Clonidine HCl (Clonidine Hcl 0.1 Mg Tablet) 0.1 mg PO BEDTIME [facility]; Protocol Last Admin: 03/24/24 20:34 Dose: 0.1 mg Cyclobenzaprine HCl (Cyclobenzaprine Hcl 10 Mg Tablet) 10 mg PO TID PRN PRN Reason: back pain Last Admin: 03/25/24 09:25 Dose: 10 mg Escitalopram Oxalate (Escitalopram Oxalate 5 Mg Tablet) 15 mg PO DAILY [facility] Fluticasone Propionate (Fluticasone Propionate Nasal 16 Gm [place]) 2 spray NOSTRIL-B DAILY [facility] Last Admin: 03/25/24 08:36 Dose: 2 spray Guaifenesin/Dextromethorphan (Guaifenesin Dm 600/30 1 Tab Tab.Er.12h) 2 tab PO BID PRN PRN Reason: Congestion Last Admin: 03/25/24 13:12 Dose: 2 tab Hydroxyzine HCl (Hydroxyzine Hcl 25 Mg Tablet) 25 mg PO Q6H PRN PRN Reason: Anxiety Last Admin: 03/18/24 18:13 Dose: 25 mg Ibuprofen (Ibuprofen 800 Mg Tablet) 800 mg PO Q8H PRN PRN Reason: Pain, Mild (Pain Scale 1-3) Last Admin: 03/22/24 20:37 Dose: 800 mg Lidocaine (Lidocaine 4 % Patch Adh..Patch) 1 patch TRANSDERMA DAILY [facility]; Protocol Last Admin: 03/25/24 14:32 Dose: 1 patch Loratadine (Loratadine 10 Mg Tablet) 10 mg PO DAILY [facility] Last Admin: 03/25/24 08:30 Dose: 10 mg Magnesium Hydroxide (Milk Of Magnesia 30 Ml Oral.Susp) 30 ml PO DAILY PRN PRN Reason: Constipation Mirtazapine (Mirtazapine 30 Mg Tablet) 30 mg PO BEDTIME [facility] Last Admin: 03/24/24 20:34 Dose: 30 mg Nicotine (Nicotine 21 Mg Patch.Td24) 21 mg TRANSDERMA DAILY PRN PRN Reason: smoking cessation Nicotine Polacrilex (Nicotine Polacrilex 2 Mg Gum) 4 mg BUCCAL Q2H PRN PRN Reason: Nicotine Cravings Olanzapine (Olanzapine 5 Mg Tablet) 5 mg PO TID PRN PRN Reason: agitation Last Admin: 03/24/24 20:34 Dose: 5 mg Oxcarbazepine (Oxcarbazepine 150 Mg Tablet) 450 mg PO BID [facility] Last Admin: 03/25/24 08:30 Dose: 450 mg Oxymetazoline HCl (Oxymetazoline Hcl 0.05 % Nasal 15 Ml [place]) 2 spray NOSTRIL- B BID PRN PRN Reason: Congestion Stop: 03/27/24 10:04 Last Admin: 03/25/24 13:12 Dose: 2 spray Pseudoephedrine HCl (Pseudoephedrine Hcl 30 Mg Tablet) 30 mg PO Q6H PRN PRN Reason: decongestion Stop: 03/27/24 10:00 Last Admin: 03/25/24 12:00 Dose: 30 mg Quetiapine Fumarate (Quetiapine Fumarate 100 Mg Tablet) 100 mg PO BEDTIME [facility] Last Admin: 03/24/24 20:34 Dose: 100 mg Trazodone HCl (Trazodone Hcl 50 Mg Tablet) 50 mg PO BEDTIME MRX1 PRN PRN Reason: Insomnia Last Admin: 03/23/24 20:28 Dose: 50 mg Allergies Allergies Allergy/AdvReac Type Severity Reaction Status Date / Time No Known Allergies Allergy Verified 03/11/24 18:51 Assessment & Plan Assessment & Plan (1) Schizoaffective disorder: Status: Acute Code(s): F25.9 - Schizoaffective disorder, unspecified (2) Suicidal ideation: Status: Acute Code(s): R45.851 - Suicidal ideations (3) Opioid use disorder: Status: Chronic Code(s): F11.99 - Opioid use, unspecified with unspecified opioid-induced disorder (4) Polysubstance (including opioids) dependence w/o physiol dependence: Status: Chronic Code(s): F19.20 - Other psychoactive substance dependence, uncomplicated Plan Schizoaffective Disorder, Depressed. Opiate use disorder, s/p suicide attempt, Polysubstance Use Disorder. Collateral contacts Diagnostics as needed. Remeron 7.5 mg HS Seroquel 50 mg HS. Aftercare planning. 03/14: Increase Remeron to 15 mg HS Increase Seroquel to 75 mg HS. 03/17/24: Increase Seroquel to 100 mg HS Mucinex prn 03/20: Trileptal 450 mg bid Claritin 10 mg daily 03/21 added Flexeril prn 03/22 continue current treatment plan; patient seems to be improving Remains in good behavioral and impulse control in the unit, appropriate with peers and staff. 03/23; remains doing better. Struggle with insomnia; agrees to adding clonidine scheduled at bedtime 03/24: Accepted to [facility] for this week. Will scheduled ENT Consult and Sleep Study for OP. 03/25: Lidocaine Patch for back pain Increase Lexapro to 15 mg daily Discharge 03/27 to [facility] Informed Consent: understands Reason for continued inpatient stay Substantial Risk for: rapid decompensation Time Spent With Patient Time: Total time managing care of this patient today ____ minutes.
[2024-03-25 15:33] LABS: Influenza A PCR NEGATIVE (Negative); Influenza B PCR NEGATIVE (Negative); Resp Syncy Virus RNA Qual PCR NEGATIVE (Negative); SARS COV2 PCR INHOUSE NEGATIVE (Negative)
--- NOTE | 2024-03-25 15:44 | PC.NURSE ---
Hospitalist consult ordered and nasal swab sent for Covid/Flu/RSV and was negative. It's recommended that he have outpatient ENT consult for nasal congestion. He is getting minimal relief with use of mucinex, afrin, flonase, and sudafed. Will continue to monitor and treat symptoms.
[2024-03-25] MEDS: OLANZapine 5 MG TABLET PO (17:59)
[2024-03-25] MEDS: Magnesium Hydrox/Alum Hydrox 30 ML ORAL.SUSP PO (19:47)
[2024-03-25 20:00] VITALS: BP 137/86; PULSE 99; RESP 16; TEMP 36.8; O2SAT 95
[2024-03-25] MEDS: cloNIDine HCL 0.1 MG TABLET PO (20:50)
[2024-03-25] MEDS: QUEtiapine Fumarate 100 MG TABLET PO (20:50)
[2024-03-25] MEDS: traZODone HCL 50 MG TABLET PO (20:50)
[2024-03-25] MEDS: Mirtazapine 30 MG TABLET PO (20:51)
[2024-03-26] MEDS: Escitalopram Oxalate 5 MG TABLET 15 MG PO (08:02)
[2024-03-26] MEDS: Loratadine 10 MG TABLET PO (08:03)
[2024-03-26] MEDS: OXcarbazepine 150 MG TABLET 450 MG PO ×2 (08:03→20:34)
[2024-03-26] MEDS: Oxymetazoline HCl 0.05 % Nasal 15 ML SPRAY 2 SPRAY NOSTRIL-B (08:05)
[2024-03-26] MEDS: Cyclobenzaprine HCl 10 MG TABLET PO ×3 (08:30→20:35)
[2024-03-26 09:33] VITALS: BP 122/77; PULSE 81; RESP 16; TEMP 36.6; O2SAT 95
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
[2024-03-26] MEDS: OLANZapine 5 MG TABLET PO ×2 (10:59→20:35)
--- NOTE | 2024-03-26 12:33 | P.PNPSI_ITS ---
Subjective Subjective Date of Service: 03/26/24 Reason For Visit: Depression/si Subjective Notes: Conditional Voluntary Healthcare Proxy: No Guardianship: No Medical Problems Affecting Mental Status: No Interim History: Review of meds. Review of persistent congestion. Discussed making ENT appt after [facility] as they will not allow appts during their treatment. Encouraged pt to discuss sleep eval with ENT and following up with that if they recommend it. Pt feeling prepared to transition to rehab and reports depression/anxiety 3- /10. Medication Compliance: Yes Side effects from medications: No Attending Groups: Yes Review of Systems Acute medical concerns: No Medical Review of Systems: unchanged Review of Systems Review of Systems congestion Mental Status Exam Mental Status Exam Patient Appearance: Appropriate Patient Orientation: Person, Place, Time and Situation Level of Consciousness: Alert Patient Behavior: Talkative and Good Eye Contact Mood Description: Apprehensive Affect Description: Apprehensive Patient Cognition Impaired: No Ability to Follow Directions: Good Speech Pattern: Spontaneous Speech Memory Description: Intact Hallucinations: None Delusions: Not Present Thought Content: positive for Perseveration Judgement: Good Diagnostics Vital Signs (24Hr): Vital Signs - 24 hr 03/25/24 20:00 03/26/24 09:33 Temperature 98.2 F 97.9 F Pulse Rate 99 81 Respiratory Rate 16 16 Blood Pressure 137/86 122/77 Pulse Oximetry 95 95 Oxygen Delivery Method Room Air Room Air BMI result Body Mass Index 24.3 Labs 03/11/24 19:02 03/11/24 19:02 Labs: Laboratory Results - last 48 hr 03/25/24 Unknown Influenza Type A (PCR) NEGATIVE Influenza Type B (PCR) NEGATIVE RSV RNA Qual (PCR) NEGATIVE SARS-CoV-2 RNA (RT-PCR) NEGATIVE Medications Medications Current Medications Acetaminophen (Acetaminophen 325 Mg Tablet) 650 mg PO Q6H PRN PRN Reason: Headache/Pain Mild Scale (1-8) Last Admin: 03/22/24 14:17 Dose: 650 mg Al Hydroxide/Mg Hydroxide (Magnesium Hydrox/Alum Hydrox 30 Ml Oral.Susp) 30 ml PO Q6H PRN PRN Reason: Heartburn/Nausea Last Admin: 03/25/24 19:47 Dose: 30 ml Benzocaine (Throat Lozenge, Medicated Lozenge) 1 lozenge MUCOUS MEM Q2H PRN PRN Reason: Sore Throat Last Admin: 03/22/24 19:05 Dose: 1 lozenge Clonidine HCl (Clonidine Hcl 0.1 Mg Tablet) 0.1 mg PO BEDTIME [facility]; Protocol Last Admin: 03/25/24 20:50 Dose: 0.1 mg Cyclobenzaprine HCl (Cyclobenzaprine Hcl 10 Mg Tablet) 10 mg PO TID PRN PRN Reason: back pain Last Admin: 03/26/24 08:30 Dose: 10 mg Escitalopram Oxalate (Escitalopram Oxalate 5 Mg Tablet) 15 mg PO DAILY [facility] Last Admin: 03/26/24 08:02 Dose: 15 mg Fluticasone Propionate (Fluticasone Propionate Nasal 16 Gm [place]) 2 spray NOSTRIL-B DAILY [facility] Last Admin: 03/26/24 08:05 Dose: Not Given Guaifenesin/Dextromethorphan (Guaifenesin Dm 1 Tab Tab.Er.12h) 2 tab PO BID PRN PRN Reason: Congestion Last Admin: 03/25/24 13:12 Dose: 2 tab Hydroxyzine HCl (Hydroxyzine Hcl 25 Mg Tablet) 25 mg PO Q6H PRN PRN Reason: Anxiety Last Admin: 03/18/24 18:13 Dose: 25 mg Ibuprofen (Ibuprofen 800 Mg Tablet) 800 mg PO Q8H PRN PRN Reason: Pain, Mild (Pain Scale 1-3) Last Admin: 03/22/24 20:37 Dose: 800 mg Lidocaine (Lidocaine 4 % Patch Adh..Patch) 1 patch TRANSDERMA DAILY [facility]; Protocol Last Admin: 03/26/24 08:06 Dose: Not Given Loratadine (Loratadine 10 Mg Tablet) 10 mg PO DAILY [facility] Last Admin: 03/26/24 08:03 Dose: 10 mg Magnesium Hydroxide (Milk Of Magnesia 30 Ml Oral.Susp) 30 ml PO DAILY PRN PRN Reason: Constipation Mirtazapine (Mirtazapine 30 Mg Tablet) 30 mg PO BEDTIME [facility] Last Admin: 03/25/24 20:51 Dose: 30 mg Nicotine (Nicotine 21 Mg Patch.Td24) 21 mg TRANSDERMA DAILY PRN PRN Reason: smoking cessation Nicotine Polacrilex (Nicotine Polacrilex 2 Mg Gum) 4 mg BUCCAL Q2H PRN PRN Reason: Nicotine Cravings Olanzapine (Olanzapine 5 Mg Tablet) 5 mg PO TID PRN PRN Reason: agitation Last Admin: 03/26/24 10:59 Dose: 5 mg Oxcarbazepine (Oxcarbazepine 150 Mg Tablet) 450 mg PO BID [facility] Last Admin: 03/26/24 08:03 Dose: 450 mg Pseudoephedrine HCl (Pseudoephedrine Hcl 30 Mg Tablet) 30 mg PO Q6H PRN PRN Reason: decongestion Stop: 03/27/24 10:00 Last Admin: 03/25/24 12:00 Dose: 30 mg Quetiapine Fumarate (Quetiapine Fumarate 100 Mg Tablet) 100 mg PO BEDTIME [facility] Last Admin: 03/25/24 20:50 Dose: 100 mg Sodium Chloride (Sodium Chloride 0.65 % Nasal 44 Ml Sprbtl) 1 spray NOSTRIL-B Q1H PRN PRN Reason: Congestion Trazodone HCl (Trazodone Hcl 50 Mg Tablet) 50 mg PO BEDTIME MRX1 PRN PRN Reason: Insomnia Last Admin: 03/25/24 20:50 Dose: 50 mg Allergies Allergies Allergy/AdvReac Type Severity Reaction Status Date / Time No Known Allergies Allergy Verified 03/11/24 18:51 Assessment & Plan Assessment & Plan (1) Schizoaffective disorder: Status: Acute Code(s): F25.9 - Schizoaffective disorder, unspecified (2) Suicidal ideation: Status: Acute Code(s): R45.851 - Suicidal ideations (3) Opioid use disorder: Status: Chronic Code(s): F11.99 - Opioid use, unspecified with unspecified opioid-induced disorder (4) Polysubstance (including opioids) dependence w/o physiol dependence: Status: Chronic Code(s): F19.20 - Other psychoactive substance dependence, uncomplicated Plan Schizoaffective Disorder, Depressed. Opiate use disorder, s/p suicide attempt, Polysubstance Use Disorder. Collateral contacts Diagnostics as needed. Remeron 7.5 mg HS Seroquel 50 mg HS. Aftercare planning. 03/14: Increase Remeron to 15 mg HS Increase Seroquel to 75 mg HS. 03/17/24: Increase Seroquel to 100 mg HS Mucinex prn 03/20: Trileptal 450 mg bid Claritin 10 mg daily 03/21 added Flexeril prn 03/22 continue current treatment plan; patient seems to be improving Remains in good behavioral and impulse control in the unit, appropriate with peers and staff. 03/23; remains doing better. Struggle with insomnia; agrees to adding clonidine scheduled at bedtime 03/24: Accepted to [facility] for this week. Will scheduled ENT Consult and Sleep Study for OP. 03/25: Lidocaine Patch for back pain Increase Lexapro to 15 mg daily Discharge 03/27 to [facility] 03/26: Discharge 03/27 to [facility] Reason for continued inpatient stay Substantial Risk for: stable for discharge Time Spent With Patient Time: Total time managing care of this patient today ____ minutes.
[2024-03-26] MEDS: Pseudoephedrine HCL 30 MG TABLET PO (12:57)
[2024-03-26] MEDS: guaiFENesin DM 600/30 1 TAB TAB.ER.12H 2 TAB PO (15:23)
[2024-03-26] MEDS: Magnesium Hydrox/Alum Hydrox 30 ML ORAL.SUSP PO (19:55)
[2024-03-26 20:00] VITALS: BP 157/82; PULSE 98; RESP 16; TEMP 37.1; O2SAT 96
[2024-03-26] MEDS: Mirtazapine 30 MG TABLET PO (20:34)
[2024-03-26] MEDS: QUEtiapine Fumarate 100 MG TABLET PO (20:35)
[2024-03-26] MEDS: cloNIDine HCL 0.1 MG TABLET PO (20:35)
[2024-03-27] MEDS: Loratadine 10 MG TABLET PO (08:11)
[2024-03-27] MEDS: Throat Lozenge, Medicated LOZENGE 1 LOZENGE MUCOUS MEM (08:11)
[2024-03-27] MEDS: Pseudoephedrine HCL 30 MG TABLET PO (08:11)
[2024-03-27] MEDS: guaiFENesin DM 600/30 1 TAB TAB.ER.12H 2 TAB PO (08:12)
[2024-03-27 08:43] LABS: MANUAL DIFF FLAG NO
[2024-03-27 08:45] VITALS: BP 132/88; PULSE 75; RESP 16; TEMP 36.2; O2SAT 98
[2024-03-27 08:53] LABS: Basophils Absolute Auto 0.1 X10*3/uL (0.0-0.2); Basophils Percent Auto 1.3 % (0-2); Eosinophils Absolute Auto 0.2 X10*3/uL (0.0-0.4); Eosinophils Percent Auto 3.4 % (0-4); Hematocrit 48.3 % (42.0-52.0); Hemoglobin 15.7 g/dl (14.0-18.0); Imm Gran Abs Auto 0.16 X10*3/uL (0.00-0.03); Imm Gran Pct Auto 2.6 % (0.0-0.4); Lymphocytes Absolute Auto 1.6 X10*3/uL (1.2-4.9); Lymphocytes Percent Auto 25.6 % (20-40); Mean Corpuscular HGB Conc 32.5 g/dl (31.0-36.0); Mean Corpuscular Hemoglobin 28.7 pg (27.0-33.0); Mean Corpuscular Volume 88.3 fL (80.0-98.0); Mean Platelet Volume 10.2 fL (9.4-12.4); Monocytes Absolute Auto 0.6 X10*3/uL (0.1-1.2); Monocytes Percent Auto 9.7 % (2-11); Neutrophils Absolute Auto 3.6 x10*3/uL (2.0-8.3); Neutrophils Percent Auto 57.4 % (45-73); Platelet Count 185 X10*3/uL (160-400); Red Blood Count 5.47 X10*6/uL (4.60-5.80); Red Cell Distribution Width 13.2 % (11.0-16.0); White Blood Count 6.2 X10*3/uL (4.8-10.8)
[2024-03-27] MEDS: Escitalopram Oxalate 5 MG TABLET 15 MG PO (09:00)
[2024-03-27] MEDS: OXcarbazepine 150 MG TABLET 450 MG PO (09:02)
[2024-03-27] MEDS: Fluticasone Propionate Nasal 16 GM SPRAY 2 SPRAY NOSTRIL-B (09:03)
[2024-03-27 09:05] LABS: Alanine Aminotransferase 30 U/L (0-40); Albumin Level 4.5 g/dL (3.5-5.0); Alkaline Phosphatase 90 U/L (39-117); Anion Gap 13 (12-20); Aspartate Amino Transferase 17 U/L (5-37); Bilirubin Total 0.3 mg/dL (0.0-1.0); Blood Urea Nitrogen 13 mg/dL (9-16); Carbon Dioxide 27 mmol/L (22-29); Chloride 102 mmol/L (96-108); Creatinine Clr Calc Pharmacy 140.1; Estimated Glomerular Filt Rate > 60; Glucose Random 112 mg/dL (60-115); Sodium 138 mmol/L (135-145); Total Protein 7.5 g/dL (6.5-8.0)
[2024-03-27] MEDS: Cyclobenzaprine HCl 10 MG TABLET PO (09:19)
[2024-03-31 19:03] LABS: Oxcarbazepine 8.6 mcg/mL (8.0-35.0)
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
== END 2024-03-27 11:00 | DRG 750 ==
LOC: HO.ED 03-12 08:38 → HO.PM5 03-12 12:57
PROVIDERS: Physician Assistant; Admitting Provider Psychiatry & Neurology Psychiatry; Emergency Provider Emergency Medicine; Visit Provider Clinical Nurse Specialist Psychiatric/Mental Health, Adult
DX: F25.1 Schizoaffective disorder, depressive type (principal); R45.851 Suicidal ideations; F11.20 Opioid dependence, uncomplicated; F17.210 Nicotine dependence, cigarettes, uncomplicated; Z71.6 Tobacco abuse counseling; Z79.899 Other long term (current) drug therapy
CPT/HCPCS: 0241U; 36415; 80048; 80053; 80061; 80076; 80307; 80339; 81001; 83036; 83735; 84443; 85025; 87086; 87651; 93005; 99285; S9485

== ENCOUNTER → 2024-03-12 08:50 | Outpatient (BNV) | payer SELFPAY | PROVIDERS: Admitting Provider Psychiatry & Neurology Psychiatry; Emergency Provider Emergency Medicine; Visit Provider Internal Medicine Cardiovascular Disease | DX: R45.851 Suicidal ideations (principal) | CPT/HCPCS: 93010 ==

== ENCOUNTER → 2024-03-12 12:47 | Outpatient (BNV) | payer MEDICAID, OTHER, SELFPAY | PROVIDERS: Admitting Provider Psychiatry & Neurology Psychiatry; Emergency Provider Emergency Medicine; Visit Provider Clinical Nurse Specialist Psychiatric/Mental Health, Adult | DX: F25.1 Schizoaffective disorder, depressive type (principal); R45.851 Suicidal ideations; F11.90 Opioid use, unspecified, uncomplicated; F19.20 Other psychoactive substance dependence, uncomplicated | CPT/HCPCS: 99231; 99232 ==

== ENCOUNTER 2024-12-12 08:24 | Outpatient (REF) | payer MEDICAID, SELFPAY ==
--- OUTSIDE RECORDS SUMMARY | 2024-12-12 08:45 | XMS_ITS ---
Author Organization [facility] Address [address], [place] [id number] Care Team Providers Care Analog Design Engineer Name Role Phone Niecy Velazquez Primary Care Provider [phone] [facility], Nursing Unavailable [phone] Encounters Encounter Location Date Provider Diagnosis [facility] [address], [place] [id number] 11/03/2024 Nursing [facility] Plan Of Treatment No Information Progress Notes * Drew LEBLANCDOB: [birth year] (44 yo M)Acc No.[id number]:11/03/2024 Progress Notes Patient:?Drew LEBLANC Provider:?Provider [facility] :1980???Age:44 Y???Sex:Male Vaibhav e:11/03/2024 Address:[address] [place], [place] [id number] Pcp:Niecy Velazquez Subjective: * Chief Complaints: * ??? Objective: * Vitals:? Assessment: Plan: * Treatment: * Images: Billing Information: * Visit Code:? * Procedure Codes:? * Electronic signature of Nurs [facility] on 12/12/2024 at 08:45 AM EDT Sign off status: Pending * Provider:?Provider [facility] Date:?11/03/2024 Generated for Maci villalobos/Brianna/eTransmitting on:?12/12/2024 08:45 AM EDT
--- OUTSIDE RECORDS SUMMARY | 2024-12-12 08:45 | XMS_ITS | Patient Health Record ---
Author Organization [facility] Address [address], [place] [id number] Care Team Providers Care Jewelry Mold Maker Name Role Phone EricNiecy gomez Primary Care Provider [facility], Nursing Unavailable [phone] Allergies No Known Allergies Results Component Value Reference Range Notes QUANTIFERON(R)-TB GOLD PLUS, 1 TUBE Reviewed date:07/24/2024 09:30:26 AM Interpretation:Negative Performing Lab:NL2, Smart Plate [facility] [id number] Helder Moulton Notes/Report: FASTING: UNKNOWN QUANTIFERON(R)-TB GOLD PLUS, 1 TUBE NEGATIVE NEGATIVE Negative test result. M. tuberculosis complex infection unlikely. NIL 0.03 MITOGEN-NIL >10.00 TB1-NIL 0.12 TB2-NIL 0.08 The Nil tube value reflects the background interferon gamma immune response of the patient's blood sample. This value has been subtracted from the patient's displayed TB and Mitogen results. Lower than expected results with the Mitogen tube prevent false-negative Quantiferon readings by detecting a patient with a potential immune suppressive condition and/or suboptimal pre-analytical specimen handling. The TB1 Antigen tube is coated with the M. tuberculosis-specific antigens designed to elicit responses from TB antigen primed CD4+ helper T-lymphocytes. The TB2 Antigen tube is coated with the M. tuberculosis-specific antigens designed to elicit responses from TB antigen primed CD4+ helper and CD8+ cytotoxic T-lymphocytes. For additional information, please refer to https://[email or web address].Kickserv/faq/NCD474 (This link is being provided for informational/ educational purposes only.) COMPREHENSIVE METABOLIC PANE L Reviewed date:07/21/2024 07:51:23 PM Interpretation:[id number] Performing Lab: Notes/Report: Sodium 140 133-145 mmol/L Potassium 3.7 3.5-5.5 mmol/L Chloride 108 96-110 mmol/L CO2 24 21-32 mmol/L Anion Gap 8 3-11 Glucose 132 70-100 mg/dL BUN 13 5-25 mg/dL Creatinine 0.92 0.70-1.30 mg/dL eGFR 106 >=60 mL/min/1.73m2 Calculati on based on the?Chronic Kidney Disease Epidemiology Collaboration (CKD-EPI) equation refit?without adjustment for race. BUN/Creatinine Ratio 14.1 Calcium 9.4 8.5-10.5 mg/dL AST (SGOT) 18 10-42 unit/L ALT (SGPT) 25 10-60 unit/L Alkaline Phosphatase 91 42-121 unit/L Total Protein 7.4 6.0-8.0 g/dL Albumin 4.1 3.2-5.0 g/dL Total Bilirubin 0.3 0.0-1.4 mg/dL COMPLETE BLOOD COUNT Reviewed date:07/21/2024 07:51:35 PM Interpretation:Normal Performing Lab: Notes/Report: WBC 5.3 4.8-10.8 K/mcL RBC 5.50 4.50-5.50 M/mcL Hemoglobin 15.6 13.5-17.5 g/dL Hematocrit 46.6 42.0-54.0 % MCV 85.2 79.0-98.0 FL MCH 28.5 27.0-32.0 pcg MCHC 33.5 32.0-37.0 g/dL RDW 12.8 11.0-15.0 % Platelets 255 130-400 K/mcL MPV 11.1 7.0-11.0 FL NRBC 0.0 <1.0 % NRBC Absolute 0.00 <0.10 K/mcL LIPID PANEL WITH REFLEX TO D IRECT LDL Reviewed date:08/05/2024 02:01:34 PM Interpretation:1.9%10-yr CVD risk(low) per PREVENT calculator Performing Lab: Notes/Report: Cholesterol 299 0-200 mg/dL Triglycerides 485 0-150 mg/dL HDL 41 >=40 mg/dL LDL Calculated 161 0-100 mg/dL Unable to amanda culate when triglycerides >400 mg/dL. VLDL Cholesterol Amanda 97 Unable to calculate when triglycerides >400 mg/dL. Non HDL Chol. (LDL+VLDL) 258 <145 mg/dL Adina ble to calculate when triglycerides >400 mg/dL. Chol/HDL Ratio 7.3 0.0-4.4 THYROID STIMULATING HORMONE WITH REFLEX TO FREE T4 AND FREE T3 Reviewed date:07/21/2024 07:51:06 PM Interpretation:Normal Performing Lab: Notes/Report: TSH 1.48 0.40-4.00 mcIU/mL HEMOGLOBIN A1C Reviewed date:07/22/2024 11:52:38 AM Interpretation:Normal Performing Lab: Notes/Report: Hemoglobin A1C 4.9 <6.5 % Mean Bld Glu Estim. 94 HEPATITIS PANEL, ACUTE WITH REFLEX TO CONFIRMATION Reviewed date:07/22/2024 11:53:01 AM Interpretation:+HCV Performing Lab: Notes/Report: Hepatitis B Surface Ag Negative Negative Hepatitis A Antibody IgM Negative Negative Hep B Core IgM Negative Negative Hepatitis C Antibody Positive Negative If conf irmation of this positive HCV Ab screening test is needed, please redraw and order HCV Viral Load. Note--> This test may not be added on due to different specimen requirements. AST, ALT, BILIRUBIN ELR STAT E REPORTABLES Reviewed date:07/21/2024 09:41:43 PM Interpretation:Normal Performing Lab: Notes/Report: ALT (SGPT) 25 10-60 unit/L AST (SGOT) 18 10-42 unit/L Total Bilirubin 0.3 0.0-1.4 mg/dL Platelets 255 Reason For Referral Reason [facility] Dental routine dental exam Diagnosis 1 Sheltered homelessne ss (Z59.01) Referral Organization [facility] Referring Provider First Name Nursing Referring Provider Last Name [facility] Referring Provider Speciality Family [facility] Referred Provider [facility] Referral Priority Routine Medications Medication SIG (Take, Route, Frequency, Duration) Notes Start Date End Date Status QUEtiapine 100 mg 1 tab(s) orally 2 times a day Active cloNIDine 0.1 mg 1 tab(s) orally 2 times a day Not-Taking mirtazapine 30 mg 1 tab(s) orally once a day (at bedtime) Active Alavert 10 mg 1 tab(s) orally once a day Not-Taking benzonatate 100 mg 1 cap(s) orally 3 times a day Not-Taking fluticasone nasal 50 mcg/inh 1 spray(s) in each nostril once a day Not-Taking Loratadine-D 24 Hour 10 mg-240 mg 1 tab(s) orally once a day Active loratadine 10 mg 1 tab(s) orally once a day Not-Taking escitalopram 20 mg 1 tab(s) orally once a day Active traZODone 50 mg as directed orally Not-Taking OXcarbazepine 600 mg 1 tab(s) orally 2 times a day Active cyclobenzaprine 10 mg 1 tab(s) orally 3 times a day Not-Taking rosuvastatin 5 mg 1 cap(s) orally once a day for 90 days 08/05/2024 Active acetaminophen 500 mg 2 tab(s) orally yamila ry 6 hours Not-Taking lidocaine topical 4% 1 PATCH applied topically once a day Not-Taking Deep Sea Nasal [place] 0.65% 2 spray(s) intranasally 4 times a day Not-Taking Immunizations Vaccine Route Administration Date Status Comme nts Hepatitis B (20 or more) Unknown 04/18/2017 Administere d Hepatitis B (20 or more) Unknown 10/18/2021 Administere d Hepatitis B (20 or more) Unknown 12/26/2021 Administere d Tdap Unknown 03/07/2017 Administered PPSV 23 Unknown 03/07/2017 Administered Hepatitis A Unknown 12/26/2021 Administered Shailesh COVID-19 Vaccine Unknown 02/09/2021 Administere d COVID-19 Pfizer 12+ Unknown 10/07/2021 Administered Problems Problem Type SNOMED Code ICD Code Onset Dates Problem Status W/U Status Risk Notes Problem Chronic hepatitis C (320292227) Chronic viral hepatitis C (B18.2) Active confirmed Problem Obesity (826172186) Obesity, unspecified (E66.9) Active confirmed Problem Mixed hyperlipidemia (731002329) Mixed hyperlipidemia (E78.2) Active confirmed Problem Tobacco user (726662689) Nicotine dependence, cigarettes, uncomplicated (F17.210) Active confirmed Problem Anxiety disorder (038028554) Anxiety disorder, unspecified (F41.9) Active confirmed Problem Posttraumatic stress disorder (33441729) Post-traumatic stress disorder, chronic (F43.12) Active confirmed Problem Insomnia disorder related to another mental disorder (92829214) Insomnia due to other mental disorder (F51.05) Active confirmed Problem Depression (899882977) Depression, unspecified (F32.A) Active confirmed Problem Sheltered homelessness (339418841332683) Sheltered homelessness (Z59.01) Active confirmed Problem Body mass index 30+ - obesity (185959782) Body mass index [BMI] 30.0-30.9, adult (Z68.30) Active confirmed Vital Signs Temperature 95.2 degrees Fahrenheit 07/21/2024 Blood pressure diastolic 77 07/21/2024 Oximetry 97 07/21/2024 Height 74 in 07/22/2024 Blood pressure systolic 123 07/21/2024 Weight 235.6 lbs 07/21/2024 BMI 30.25 kg/m2 07/21/2024 Encounters Encounter Location Date Provider Diagnosis [address] [id number] 05/23/2024 Nursing [facility] Sheltered homelessness Z59.01 ; Encounter for screening for COVID-19 Z11.52 and Encounter for screening for depression Z13.[address] [id number] 07/21/2024 Eddieliza Casionan Encounter for general adult medical examination with abnormal findings Z00.01 ; Encounter for screening for infectious and parasitic diseases, unspecified Z11.9 ; Encounter for screening for respiratory tuberculosis Z11.1 ; Body mass index [BMI] 30.0-30.9, adult Z68.30 ; Obesity, unspecified E66.9 ; Personal history of nicotine dependence Z87.891 ; Alcohol use, unspecified, uncomplicated F10.90 ; Sheltered homelessness Z59.01 ; Immunization not carried out because of patient refusal Z28.21 and Insomnia due to other mental disorder F51.05 [facility] [address] [place] [address] [place] [id number] 08/05/2024 Eddieliza Casionan Encounter for screening for COVID-19 Z11.52 ; Mixed hyperlipidemia E78.2 ; Person consulting for explanation of examination or test findings Z71.2 and Personal history of other infectious and parasitic diseases Z86.[address] [id number] 07/22/2024 Eddieliza Casionan Chronic viral hepatitis C B18.2 Assessments Encounter Date Diagnosis (ICD Code) Assessment Notes Treat ment Notes Treatment Clinical Notes 05/23/2024 Sheltered homelessness (ICD-10 - Z59.01) Medical, psych, and social history reviewed and documented. [facility] records reviewed and submitted. Med reconcillation completed. Pt. does not report and urgent needs at the time of call. Pt. given next available intake appointment with provider. Pt. encouraged to contact clinic with any issues or concerns prior to scheduled appointment 05/23/2024 Encounter for screening for COVID-19 (ICD-10 - Z11.52) Covid verbal screening negative 07/21/2024 Encounter for general adult medical examination with abnormal findings (ICD-10 - Z00.01) Annual PE performed.General recommendation for good health made: brush/floss your teeth 2x per day. Eat a healthy diet and obtain 30 minutes of aerobic exercise 5/7 days per week. Maintain high in take of water and avoid soda and energy drinks. Get 8 hours of sleep every night. 07/21/2024 Encounter for screening for infectious and parasitic diseases, unspecified (ICD-10 - Z11.9) Covid screening is negative. Discussed in detail with patient how to practice social distancing by avoiding public spaces and crowds now, wearing a mask in public to keep nose and mouth covered, and washing hands frequently especially before eating and after using the bathroom. Return to clinic if you develop any symptoms of concern to be rescreened or go to the emergency room if you are having concerning symptoms for COVID-19. Screen for TB and hepatitis 08/05/2024 Encounter for screening for COVID-19 (ICD-10 - Z11.52) Covid verbal screening negative. 07/22/2024 Chronic viral hepatitis C (ICD-10 - B18.2) 05/23/2024 Encounter for screening for depression (ICD-10 - Z13.31) PHQ-9 assessed score was 16, moderately severe depression. Pt. is currently involved in services with [facility], pt. unaware of MH provider name. 07/21/2024 Encounter for screening for respiratory tuberculosis (ICD-10 - Z11.1) TB testing is completed on patients every 6 months with housing instability and those using substances. Quantiferon gold will be drawn. 08/05/2024 Mixed hyperlipidemia (ICD-10 - E78.2) Engaged discussion on maintaining healthy lifestyle: healthy diet low on fats and simple carbohydrates, and regular physical exercise of at least 30 minutes daily 07/21/2024 Body mass index [BMI] 30.0-30.9, adult (ICD-10 - Z68.30) Engaged discussion on maintaining healthy lifestyle: healthy diet low on fats and simple carbohydrates, and regular physical exercise of at least 30 minutes daily 08/05/2024 Person consulting for explanation of examination or test findings (ICD-10 - Z71.2) Reviewed results of recent diagnostic testing with client. Future plan of action discussed with from results of diagnostic testing. 08/05/2024 Personal history of other infectious and parasitic diseases (ICD-10 - Z86.19) Denies risky habits to HCV exposure 07/21/2024 Obesity, unspecified (ICD-10 - E66.9) Engaged discussion on maintaining healthy lifestyle: healthy diet low on fats and simple carbohydrates, and regular physical exercise of at least 30 minutes daily 07/21/2024 Personal history of nicotine dependence (ICD-10 - Z87.891) Reports no longer smoking 07/21/2024 Alcohol use, unspecified, uncomplicated (ICD-10 - F10.90) On recovery 07/21/2024 Sheltered homelessness (ICD-10 - Z59.01) At a shelter house 07/21/2024 Immunization not carried out because of patient refusal (ICD-10 - Z28.21) Declines Flu shot. Aware of risks 07/21/2024 Insomnia due to other mental disorder (ICD-10 - F51.05) He was expecting me to start him on medication. He says melatonin does not work. Advised him to talk to his psyche provider. He is already of Seroquel. He tried trazodone and both did not work 05/23/2024 Other Pt. request dental referral, referral created and submitted to [facility] dental. Time spent in visit: 30 minutes 06/26/2024 Other 07/21/2024 Other 08/05/2024 Other Time spent in visit:8 minutes Plan Of Treatment Pending Test Test Name Order Date CBC 07/21/2024 COMPREHENSIVE METABOLIC PANEL 07/21/2024 GLYCOHEMOGLOBIN PROFILE 07/21/2024 HCV VIRAL LOAD 07/22/2024 LIPID PROFILE 07/21/2024 TSH CASCADE 07/21/2024 HEPATITIS A,B,C PROFILE 07/21/2024 Future Test Test Name Order Date COMPREHENSIVE METABOLIC PANEL 11/03/2024 HCV VIRAL LOAD 11/03/2024 LIPID PROFILE 11/03/2024 Insurance Providers Payer Name Payer Address Payer Phone Subscriber Number Group Number Insured Name Patient Relationship to Insured Coverage Start Date Coverage End Date [place] C3 [address] [place], [place] [id number] [phone] [id number] Drew Weiss Self - patient is the insured 4 Medical (General) History Medical History History ICD Code Anxiety PTSD Depression Hospitalization History Reason Date(Month/Year) [facility]- [facility] admit 2016 [facility] admit 03/15 24
--- OUTSIDE RECORDS SUMMARY | 2024-12-12 08:46 | XMS_ITS | Clinical Summary ---
Author Organization [facility] Address [address] [facility] [address] [place] [address] Care Team Providers Care President And Chief Executive Officer Name Role Phone Luanne Torres NP Primary Care Provider [phone] Allergies No known active allergies Medications mirtazapine (Remeron) 15 MG tabletIndication s:Current mild episode of major depressive disorder, unspecified whether recurrent (CMS/HCC) Take 1 tablet by mouth daily at bedtime for 1 week, then take 2 tabs 50 tablet 2 12/10/19 25 Discontinu ed(Therapy completed) Active Problems Problem Noted Date Diagnosed Date Mixed hyperlipidemia 12/09/2024 Assessment & Plan (12/09/2024 5:46 PM EDT): Pt has successfully lost weight, continue current efforts Lab as ordered below Polysubstance use disorder 12/09/2024 Overview (12/09/2024): Sober from [facility] 7 years (2024) Sober from [facility]oh 9 months attends meetings Exercise counseling 12/09/2024 Dietary counseling 12/09/2024 Assessment & Plan (12/09/2024 5:45 PM EDT): Dietary Recommendations: Fruits, vegetables, whole grains, protein foods, and fat-free or low-fat dairy products are healthy choices. Eat different types of protein foods in your diet. This can include seafood, lean meats, poultry, beans, peas, lentils, nuts, seeds, soy products, and eggs. Limit foods and beverages higher in added sugars, saturated fat, and sodium. Exercise Recommendations: At least 150 minutes of moderate-intensity physical activity per week, or an equivalent combination of moderate- and vigorous-intensity activity Encounters Date Type Department Care Team Description 12/09/2024 2:30 PM EDT Office Visit [facility] [address] [place] [address] Luanne Torres NP Mixed hyperlipidemia (Primary Dx); Dietary counseling; Exercise counseling; Polysubstance use disorder 12/09/2024 Travel 12/09/2024 Telephone [facility] [address] [place] [address] Jah Sweeney MD from Last 3 Months Immunizations Name Administration Dates Next Due Hep A, Adult 12/26/2021 Hep B, adult 04/18/2017 HepB-CpG 12/26/2021,10/24/2021 Pneumococcal Polysaccharide PPSV23 03/07/2017 Tdap 03/07/2017 Social History Tobacco Use Types Packs/Day Years Used Date Smoking Tobacco: Never Smokeless Tobacco: Never Tobacco Cessation:Counseling Given: Not Answered Depression Answer Date Recorded Patient Health Questionnaire-9 Score 4 12/09/2024 Patient Health Questionnaire-9 Score 4 12/09/2024 Last PHQ-9: Questionnaire Data Not on file 0 12/09/2024 Housing Stability Answer Date Recorded What is your housing situation today? I have joliemakayla reyes 12/09/[address] you li ve. Do you have problems with any of the following? None of the above 12/09/2024 Food Insecurity Answer Date Recorded Within the past 12 months, y ou worried that your food would run out before you got money to buy more: Sometimes True 2024 Within the past 12 months,th e food you bought just didn't last and you didn't have enough money to get more: Never True 12/09/2024 Transportation Answer Date Recorded In the past 12 months, has l ack of transportation kept you from medical appts, meetings, work or from getting things needed for daily living? Yes, it has kept me from non-medical meetings, work, or getting things that I need 12/09/2024 Utilities Answer Date Recorded In the past 12 months, has t he electric, gas, oil or water company threatened to shut off services in your home? No 12/09/2024 Depression Answer Date Recorded Patient Health Questionnaire-2 Score 3 12/09/2024 Internet Access Answer Date Recorded Internet Access Q1 Yes 12/09/2024 Internet Access Q2 Not on file 12/09/2024 Sex and Gender Information Value Date Recorded Sex Assigned at Male 06/26/2022 10:20 AM EDT Legal Sex Male 10:20 AM EDT Gender Identity Male 06/26/2022 10:20 AM EDT Sexual Orientation Straight 06/26/2022 10 :20 AM EDT Last Filed Vital Signs Vital Sign Reading Time Taken Comments Blood Pressure 135/79 12/09/2024 2:33 PM EDT Pulse 92 12/09/2024 2:33 PM EDT Temperature 36.6 ??C (97.8 ??F) 12/09/2024 2:33 PM ED T Respiratory Rate 22 12/09/2024 2:33 PM EDT Oxygen Saturation 98% 12/09/2024 2:33 PM EDT Inhaled Oxygen Concentration - - Weight 97 kg (213 lb 12.8 oz) 12/09/2024 2:33 PM EDT Height 182.9 cm (6') 12/09/2024 2:33 PM EDT Body Mass Index 29 12/09/2024 2:33 PM EDT Plan of Treatment Health Maintenance Due Date Last Done Comments Lipid Panel 1980 Family Planning (PISQ) 1995 Hepatitis A Vaccines (2 of 2 - Risk 2-dose series) 06/28/2022 12/26/2021 COVID-19 Vaccine (3 - 2023-2 5 season) 2024 10/07/2021, 02/09/2021 Influenza Vaccine (#1) 2024 Alcohol/Substance Use Screening 12/09/2025 12/09/2024 Depression Screening 12/09/2025 12/09/2024, 12/09/2024 SDOH Screening 12/09/2025 12/09/2024 Tobacco Screening 12/09/2025 12/09/2024 DTaP/Tdap/Td Vaccines (2 - T d or Tdap) 03/07/2027 03/07/2017 Zoster Vaccines (1 of 2) 2030 RSV Patients and Patients Aged 60 years or older (1 - 1-dose 75+ series) 2055 Pneumococcal Vaccine: Pediatrics (0 to 5 Years) and At-Risk Patients (6 to 49) Years) Aged Out 03/07/2017 No longer eligible b ased on patient's age to complete this topic Hepatitis B Vaccines Completed 12/26/2021, 10/24/2021, 04/18/2017 HIV Screening Completed 03/07/2022 HIB Vaccines Aged Out No longer eligi ble based on patient's age to complete this topic HPV Vaccines Aged Out No longer eligi ble based on patient's age to complete this topic IPV Vaccines Aged Out No longer eligi ble based on patient's age to complete this topic Meningococcal Vaccine Aged Out No felipe jerrod eligible based on patient's age to complete this topic RSV under 20 months Aged Out No longe r eligible based on patient's age to complete this topic Rotavirus Vaccines Aged Out No longer eligible based on patient's age to complete this topic Procedures Procedure Name Priority Date/Time Associated Diagnosis Comments HIV 1/2 ANTIGEN AND ANTIBODY Routine 03/07/2022 from Last 3 Months or Most Recently Relevant to Health Maintenance Results * HM HIV 1/2 Antigen and Antibody (03/07/2022) HIV Ag/Ab Nonreactive [facility] MD HEALTH MAINTENANCE Final Result from Last 3 Months or Most Recently Relevant to Health Maintenance Insurance [facility] C3 Care Teams President And Chief Executive Officer Relationship Specialty Start Date End Date Luanne Torres NP [address] [place] [id number] PCP - General Family Medicine 12/09/[address] [address] 01/25/24
--- OUTSIDE RECORDS SUMMARY | 2024-12-12 08:46 | XMS_ITS ---
Author Organization [facility] Address [address], [place] [id number] Care Team Providers Care Cutter First Name Role Phone Niecy Velazquez Primary Care Provider REASON FOR VISIT phone: lab f/u Medications Medication SIG (Take, Route, Frequency, Duration) Notes Start Date End Date Status cloNIDine 0.1 mg 1 tab(s) orally 2 times a day Not-Taking fluticasone nasal 50 mcg/inh 1 spray(s) in each nostril once a day Not-Taking loratadine 10 mg 1 tab(s) orally once a day Not-Taking traZODone 50 mg as directed orally Not-Taking cyclobenzaprine 10 mg 1 tab(s) orally 3 times a day Not-Taking Alavert 10 mg 1 tab(s) orally once a day Not-Taking benzonatate 100 mg 1 cap(s) orally 3 times a day Not-Taking Deep Sea Nasal Pansey 0.65% 2 spray(s) intranasally 4 times a day Not-Taking acetaminophen 500 mg 2 tab(s) orally yamila ry 6 hours Not-Taking lidocaine topical 4% 1 PATCH applied topically once a day Not-Taking QUEtiapine 100 mg 1 tab(s) orally 2 times a day Active mirtazapine 30 mg 1 tab(s) orally once a day (at bedtime) Active Loratadine-D 24 Hour 10 mg-240 mg 1 tab(s) orally once a day Active escitalopram 20 mg 1 tab(s) orally once a day Active OXcarbazepine 600 mg 1 tab(s) orally 2 times a day Active rosuvastatin 5 mg 1 cap(s) orally once a day for 90 days 08/05/2024 Active Problems Problem Type SNOMED Code ICD Code Onset Dates Problem Status W/U Status Risk Notes Problem Mixed hyperlipidemia (893796188) Mixed hyperlipidemia (E78.2) Active confirmed Encounters Encounter Location Date Provider Diagnosis [facility] [address] [facility], [place] [id number] 08/05/2024 Niecy Velazquez Encounter for screen ing for COVID-19 Z11.52 ; Mixed hyperlipidemia E78.2 ; Person consulting for explanation of examination or test findings Z71.2 and Personal history of other infectious and parasitic diseases Z86.19 Assessments Encounter Date Diagnosis (ICD Code) Assessment Notes Treat ment Notes Treatment Clinical Notes 08/05/2024 Encounter for screening for COVID-19 (ICD-10 - Z11.52) Covid verbal screening negative. 08/05/2024 Mixed hyperlipidemia (ICD-10 - E78.2) Engaged discussion on maintaining healthy lifestyle: healthy diet low on fats and simple carbohydrates, and regular physical exercise of at least 30 minutes daily 08/05/2024 Person consulting fo r explanation of examination or test findings (ICD-10 - Z71.2) Reviewed results of recent diagnostic testing with client. Future plan of action discussed with from results of diagnostic testing. 08/05/2024 Personal history of other infectious and parasitic diseases (ICD-10 - Z86.19) Denies risky habits to HCV exposure 08/05/2024 Other Time spent in visit:8 minutes Plan Of Treatment Medication Medication Name Sig Start Date Stop Date Notes rosuvastatin 5 mg 1 cap(s) orally once a day for 90 days 1 10/06/2023 Treatment Notes Assessment Notes Encounter for screening for COVID-19 Cov id verbal screening negative. Mixed hyperlipidemia Engaged discussion on maintaining healthy lifestyle: healthy diet low on fats and simple carbohydrates, and regular physical exercise of at least 30 minutes daily Person consulting for explan ation of examination or test findings Reviewed results of recent diagnostic testing with client. Future plan of action discussed with from results of diagnostic testing. Personal history of other in fectious and parasitic diseases Denies risky habits to HCV exposure Other Time spent in visit: 8 minutes Future Test Test Name Order Date COMPREHENSIVE METABOLIC PANEL 11/03/2024 HCV VIRAL LOAD 11/03/2024 LIPID PROFILE 11/03/2024 Next Appt Details Follow Up: 3 Months, Reason: chronic car f/u Progress Notes * Matthew WEISS: [birth year] (43 yo M)Acc No.[id number]:08/05/2024 Progress Notes Patient:?Drew WEISS Provider:?JENNIFER Ludwig :1980???Age:43 Y???Sex:Male Vaibhav e:08/05/2024 Address:[address] [place], [place] [id number] Subjective: * Chief Complaints: * ???Phone: lab f/u * HPI: ???General:? This encounter is being performed over the telephone. The patient has consented to a telephone encounter.Limitations of this method of delivery of health services were discussed. The patient was made aware that privacy measures are in place to protect confidentiality of this type of visit. ? 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 for lab f/u?today. -Reports being on recovery at a [facility]-Has [facility] therapist and psychiatrist. - Reports trouble with sleeping and Seroquel does not work. He tried trazodone. He says Lunesta or Ambien worked in the past -cigarettes?quit a year ago -weed cocaine heroin - stopped more than a year ago -What substances are you using -Alcohol - stopped 02/2024; -Last dental visit:denies -Last eye exam:08/2023 - prescription glasses -family hx Colon CA?denies. * ROS:?GENERAL:?Constitutional?denies,?fevers, Fatigue.?Respiratory?denies,?shortness of breath.?Musculoskeletal?denies,?generalized muscle aching.?Cardiovascular?denies,?chest pain/pressure.? * Medical History:? * Surgical History:? * Hospitalization/Major Diagno stic Procedure:? * Medications:?TakingLoratadin e-D 24 Hour 10 mg-240 mg tablet, extended release 1 tab(s) orally once a day escitalopram 20 mg tablet 1 tab(s) orally once a day OXcarbazepine 600 mg tablet 1 tab(s) orally 2 times a day QUEtiapine 100 mg tablet 1 tab(s) orally 2 times a day mirtazapine 30 mg tablet 1 tab(s) orally once a day (at bedtime) Taking Loratadine-D 24 Hour 10 mg-240 mg tablet, extended release 1 tab(s) orally once a day Taking escitalopram 20 mg tablet 1 tab(s) orally once a day Taking OXcarbazepine 600 mg tablet 1 tab(s) orally 2 times a day Taking QUEtiapine 100 mg tablet 1 tab(s) orally 2 times a day Taking mirtazapine 30 mg tablet 1 tab(s) orally once a day (at bedtime) Not-Taking/PRNAlavert 10 mg tablet 1 tab(s) orally once a day benzonatate 100 mg capsule 1 cap(s) orally 3 times a day acetaminophen 500 mg tablet 2 tab(s) orally every 6 hours lidocaine topical 4% film 1 PATCH applied topically once a day Deep Sea Nasal Pansey 0.65% spray 2 spray(s) intranasally 4 times a day fluticasone nasal 50 mcg/inh spray 1 spray(s) in each nostril once a day loratadine 10 mg tablet 1 tab(s) orally once a day traZODone 50 mg tablet as directed orally cyclobenzaprine 10 mg tablet 1 tab(s) orally 3 times a day cloNIDine 0.1 mg tablet 1 tab(s) orally 2 times a day Not-Taking/PRN Alavert 10 mg tablet 1 tab(s) orally once a day Not-Taking/PRN benzonatate 100 mg capsule 1 cap(s) orally 3 times a day Not-Taking/PRN acetaminophen 500 mg tablet 2 tab(s) orally every 6 hours Not-Taking/PRN lidocaine topical 4% film 1 PATCH applied topically once a day Not-Taking/PRN Deep Sea Nasal Pansey 0.65% spray 2 spray(s) intranasally 4 times a day Not-Taking/PRN fluticasone nasal 50 mcg/inh spray 1 spray(s) in each nostril once a day Not-Taking/PRN loratadine 10 mg tablet 1 tab(s) orally once a day Not- Taking/PRN traZODone 50 mg tablet as directed orally Not-Taking/PRN cyclobenzaprine 10 mg tablet 1 tab(s) orally 3 times a day Not-Taking/PRN cloNIDine 0.1 mg tablet 1 tab(s) orally 2 times a day Objective: * Vitals:? * ???Past Orders: ???Lab:THYROID STIMULATING H ORMONE WITH REFLEX TO FREE T4 AND FREE T3 (Order Date - 07/21/2024) (Collection Date & Time - 07/21/2024 01:41 PM) ?Result: Normal ? Value Reference Range ?TSH 1.48 0.40-4.00 - mcI U/mL ???Lab:HEMOGLOBIN A1C (Order Date - 07/21/2024) (Collection Date & Time - 07/21/2024 01:41 PM) ?Result: Normal ? Value Reference Range ?Hemoglobin A1C 4.9 <6.5 - % ?Mean Bld Glu Estim. 94 - mg/dL ???Lab:QUANTIFERON(R)-TB GOL D PLUS, 1 TUBE (Order Date - 07/21/2024) (Collection Date & Time - 07/21/2024 01:40 PM) ?Result: Negative ? Value Reference Range ?MITOGEN-NIL >10.00 - IU/mL ?NIL 0.03 - IU/mL ?QUANTIFERON(R)-TB GO LD PLUS, 1 TUBE NEGATIVE NEGATIVE - ?TB1-NIL 0.12 - IU/mL ?TB2-NIL 0.08 - IU/mL ???Lab:AST, ALT, BILIRUBIN E LR STATE REPORTABLES (Order Date - 07/21/2024) (Collection Date & Time - 07/21/2024 01:41 PM) ?Result: Normal ? Value Reference Range ?ALT (SGPT) 25 10-60 - u nit/L ?AST (SGOT) 18 10-42 - u nit/L ?Total Bilirubin 0.3 0.0- 1.4 - mg/dL ???Lab:HEPATITIS PANEL, ACUT E WITH REFLEX TO CONFIRMATION (Order Date - 07/21/2024) (Collection Date & Time - 07/21/2024 01:41 PM) ?Result: +HCV ? Value Reference Range ?Hepatitis B Surface Ag Negative Negative - ?Hepatitis A Antibody IgM Negative Negative - ?Hep B Core IgM Negative Negat jennifer - ?Hepatitis C Antibody Positive A Negative - ???Lab:COMPREHENSIVE METABOL IC PANEL (Order Date - 07/21/2024) (Collection Date & Time - 07/21/2024 01:41 PM) ?Result: glu-132 ? Value Reference Range ?Sodium 140 133-145 - mmo l/L ?Potassium 3.7 3.5-5.5 - mmol/L ?Chloride 108 96-110 - mm ol/L ?CO2 24 21-32 - mmol/L ?Anion Gap 8 3-11 - ?Glucose 132 H 70-100 - mg/ dL ?BUN 13 5-25 - mg/dL ?Creatinine 0.92 0.70-1.30 - mg/dL ?eGFR 106 >=60 - mL/min/1 .73m2 ?BUN/Creatinine Ratio 14.1 - ?Calcium 9.4 8.5-10.5 - m g/dL ?AST (SGOT) 18 10-42 - u nit/L ?ALT (SGPT) 25 10-60 - u nit/L ?Alkaline Phosphatase 91 42-121 - unit/L ?Total Protein 7.4 6.0-8. 0 - g/dL ?Albumin 4.1 3.2-5.0 - g/ dL ?Total Bilirubin 0.3 0.0- 1.4 - mg/dL ???Lab:COMPLETE BLOOD COUNT (Order Date - 07/21/2024) (Collection Date & Time - 07/21/2024 01:41 PM) ?Result: Normal ? Value Reference Range ?WBC 5.3 4.8-10.8 - K/mc L ?RBC 5.50 4.50-5.50 - M/m cL ?Hemoglobin 15.6 13.5-17.5 - g/dL ?Hematocrit 46.6 42.0-54.0 - % ?MCV 85.2 79.0-98.0 - FL ?MCH 28.5 27.0-32.0 - pcg ?MCHC 33.5 32.0-37.0 - g/d L ?RDW 12.8 11.0-15.0 - % ?Platelets 255 130-400 - K/mcL ?MPV 11.1 H 7.0-11.0 - FL ?NRBC 0.0 <1.0 - % ?NRBC Absolute 0.00 <0.10 - K/mcL ???Lab:LIPID PANEL WITH REFL EX TO DIRECT LDL (Order Date - 07/21/2024) (Collection Date & Time - 07/21/2024 01:41 PM) ?Result: 1.9%10-yr CV D risk(low) per PREVENT calculator ? Value Reference Range ?Cholesterol 299 H 0-200 - mg/dL ?Triglycerides 485 H 0-150 - mg/dL ?HDL 41 >=40 - mg/dL ?LDL Calculated 161 H 0-100 - mg/dL ?VLDL Cholesterol Chema 97 - mg/dL ?Non HDL Chol. (LDL+VLDL) 258 H <145 - mg/dL ?Chol/HDL Ratio 7.3 H 0.0-4 .4 - * Examination: ???General Examination: ???Unable to perform PE due to constraints of telephone encounter. Unable to perform PE due to constraints of telephone encounter/observational only. Engaged in OV and answers questions appropriately. No noted respiratory distress. No concerning verbal communication indicating BH distress. Assessment: * Assessment: 1.?Person consulting for exp lanation of examination or test findings - Z71.2 (Primary)???2.?Encounter for screening for COVID-19 - Z11.52???3.?Mixed hyperlipidemia - E78.2???4.?Personal history of other infectious and parasitic diseases - Z86.19???Specify :reports HCV treatment about 2013??? Plan: * Treatment: 2.?Encounter for screening f or COVID-19? Notes: Covid verbal screening negative.?? 3.?Mixed hyperlipidemia? Start rosuvastatin capsule, 5 mg, 1 cap(s), orally, once a day, 90 days, 90 Capsule, Refills 1.?LAB: COMPREHENSIVE METABOLIC PANEL (Ordered for 11/03/2024) ?LAB: LIPID PROFILE (Ordered for 11/03/2024) Notes: Engaged discussion on maintaining healthy lifestyle: healthy diet low on fats and simple carbohydrates, and regular physical exercise of at least 30 minutes daily?? 4.?Personal history of other infectious and parasitic diseases?LAB: HCV VIRAL LOAD (Ordered for 11/03/2024) Notes: Denies risky habits to HCV exposure?? 5.?Others? Notes: Time spent in visit:8 minutes?? * Procedure Codes:? * Follow Up:?3 Months (Reason: chronic car f/u) * Images: Billing Information: * Visit Code:? T1015 CLINIC VST/ENCOUNTER ALL-INCLUSIVE. [address] HPI: 1PF;1ROS;PE: 2-4BA/SYS;MDM:Low; Prescription/OTC;most infections or >50%/15min spent counseling. * Procedure Codes:? Care Plan Details* * Sign off status: Completed true * Provider:JENNIFER Mercado Date: ?08/05/2024 Generated for Maci villalobos/Brianna/eThuntersmitting on:?12/12/2024 08:46 AM EDT
--- OUTSIDE RECORDS SUMMARY | 2024-12-12 08:46 | XMS_ITS ---
Author Organization [facility] Address [address] [place] [phone] Care Team Providers Care Elementary Assistant Teacher Name Role Phone EricNiecy gomez Primary Care Provider REASON FOR VISIT Labs Problems Problem Type SNOMED Code ICD Code Onset Dates Problem Status W/U Status Risk Notes Problem Chronic hepatitis C (303288276) Chronic viral hepatitis C (B18.2) Active confirmed Vital Signs Height 74 in 07/22/2024 Encounters Encounter Location Date Provider Diagnosis [address] [phone] 07/22/2024 Elianaalverto Velazquez Chronic viral hepatitis C B18.2 Assessments Encounter Date Diagnosis (ICD Code) Assessment Notes Treatment Notes Treatment Clinical Notes 07/22/2024 Chronic viral hepatitis C (ICD-10 - B18.2) Plan Of Treatment Pending Test Test Name Order Date HCV VIRAL LOAD 07/22/2024 Progress Notes * Drew WEISSDOB: [birth year] (43 yo M)Acc No.[id number]:07/22/2024 Patient:?Drew WEISS :1980???Age:43 Y???Sex:Male Address:[address] [place] [address], [phone] Subjective: * Chief Complaints: * ???Labs * Medical History:? * Surgical History:? * Hospitalization/Major Diagno stic Procedure:? * Medications:? Objective: * Vitals:?Ht: 74. * Physical Examination:? Assessment: * Assessment: 1.?Chronic viral hepatitis C - B18.2 (Primary)??? Plan: * Treatment: * Procedure Codes:? * true * Date:? Generated for Maci villalobos/Brianna/[place] on:?12/12/2024 08:45 AM EDT
--- OUTSIDE RECORDS SUMMARY | 2024-12-12 08:47 | XMS_ITS | Encounter Summary ---
Author Organization [employer] Address [address] [facility] [address] [place] [address] Care Team Providers Care Best Second Jobs Name Role Phone Luanne Torres NP Primary Care Provider [phone] Encounter Details Date Type Department Care Team ([facility] st Contact Info) Description 12/09/2024 Telephone [facility] [address] [place], [place] [phone] Jah Sweeney MD [address] [place], [place] [phone] Social History Tobacco Use Types Packs/Day Years Used Date Smoking Tobacco: Never Smokeless Tobacco: Never Depression Answer Date Recorded Patient Health Questionnaire-9 Score 4 12/09/2024 Patient Health Questionnaire-9 Score 4 12/09/2024 Last PHQ-9: Questionnaire Data Not on file 0 12/09/2024 Housing Stability Answer Date Recorded What is your housing situation today? I have jolie sing 12/09/[address] you li [...] Orientation Straight 06/26/2022 10 :20 AM EDT documented as of this encounter Miscellaneous Notes * Telephone Encounter - Hilda Weiss - 12/09/2024 8:41 AM EDT Pt walked in requesting a new pt apt for work needs physical. documented in this encounter Plan of Treatment Not on file documented as of this encounter Visit Diagnoses Not on filedocumented in this encounter Additional Health Concerns Assessment Noted Time PHQ-9 Depression Total Score: 4 12/10/19 25 3:14 PM EDT documented as of this encounter Care Teams Best Second Jobs Relationship Specialty Start Date End Date Luanne Torres NP [address] [place] [address] PCP - General Family Medicine 12/09/24 [facility] [address] [facility], [address] [place] [id number] 01/25/24 documented as of this encounter
--- OUTSIDE RECORDS SUMMARY | 2024-12-12 08:47 | XMS_ITS | Encounter Summary ---
Author Organization [employer] Address [address] [facility] 7[address] [place] [address] Care Team Providers Care Stonework Tracer Name Role Phone Luanne Torres NP Primary Care Provider [phone] Encounter Details Date Type Department Care Team (Latest Contact Info) Description 12/09/2024 Travel Social History Tobacco Use Types Packs/Day Years Used Date Smoking Tobacco: Never Smokeless Tobacco: Never Depression Answer Date Recorded Patient Health Questionnaire-9 Score 4 12/09/2024 Patient Health Questionnaire-9 Score 4 12/09/2024 Last PHQ-9: Questionnaire Data Not on file 0 12/09/2024 Housing Stability Answer Date Recorded What is your housing situation today? I have jolie amy 12/09/[address] you li [...] AM EDT documented as of this encounter Plan of Treatment Not on file documented as of this encounter Visit Diagnoses Not on filedocumented in this encounter Additional Health Concerns Assessment Noted Time PHQ-9 Depression Total Score: 4 12/10/19 3:14 PM EDT documented as of this encounter Care Teams Stonework Tracer Relationship Specialty Start Date End Date Luanne Torres NP [address] [place] [address] PCP - General Family Medicine 12/09/24 [facility] [address] [address] 01/25/24 documented as of this encounter
--- OUTSIDE RECORDS SUMMARY | 2024-12-12 08:47 | XMS_ITS | Encounter Summary ---
Author Organization [facility] Address [address] [facility] 7 [place] [address] Care Team Providers Care Custodial Maintenance Worker Name Role Phone Luanne Torres NP Primary Care Provider [phone] Encounter Details Date Type Department Care Team (Latest Contact Info) Description 12/09/2024 2:30 PM EDT Office Visit [facility] [address] [place], [place] [phone] Luanne Torres NP [address] [place] [address] Mixed hyperlipidemia (Primary Dx); Dietary counseling; Exercise counseling; Polysubstance use disorder Social History Tobacco Use Types Packs/Day Years Used Date Smoking Tobacco: Never Smokeless Tobacco: Never Tobacco Cessation:Counseling Given: Not Answered Depression Answer Date Recorded Patient Health Questionnaire-9 Score 4 12/09/2024 Patient Health Questionnaire-9 Score 4 12/09/2024 Last PHQ-9: Questionnaire Data Not on file 0 12/09/2024 Housing Stability Answer Date Recorded What is your housing situation today? I have jolie reyes 12/09/[address] you [...] AM EDT documented as of this encounter Last Filed Vital Signs Vital Sign Reading [...] Mass Index 29 12/09/2024 2:33 PM EDT documented in this encounter Progress Notes * Luanne Torres NP - 12/09/2024 2:30 PM EDT Subjective: Drew Weiss is a 44 y.o. male who presents to the office for a transfer patient visit. Interim history: Had elevated cholesterol Had side effects - muscle aches and stopped medication Vapes nicotine Has lost a lot of weight In therapy Hx of ivdu sober 9 years, sober from etoh 9 months Current concerns: None, motivated to continue to lose weight, would prefer to not take medication Since sobriety has had screening, declines sti screening today Patient Active Problem List Diagnosis Mixed hyperlipidemia Polysubstance use disorder Exercise counseling Dietary counseling No past surgical history on file. No family history on file. 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 HENT: Negative for congestion. Respiratory: Negative for apnea and chest tightness. Cardiovascular: Negative for chest pain and leg swelling. Gastrointestinal: Negative for abdominal distention. Genitourinary: Negative for difficulty urinating. Musculoskeletal: Negative for arthralgias and back pain. Psychiatric/Behavioral: Negative for agitation. Vitals: 12/09/24 1433 BP: 135/79 BP Location: Right arm Patient Position: Sitting BP Cuff Size: Large adult Pulse: 92 Resp: 22 Temp: 97.8 ??F (36.6 ??C) TempSrc: Temporal SpO2: 98% Weight: 213 lb 12.8 oz (97 kg) Height: 6' (1.829 m) Physical Exam Vitals reviewed. Constitutional: Appearance: Normal appearance. HENT: Head: Normocephalic. Cardiovascular: Rate and Rhythm: Normal rate. Heart sounds: Normal heart sounds. Pulmonary: Breath sounds: Normal breath sounds. Abdominal: Palpations: Abdomen is soft. Musculoskeletal: Cervical back: Neck supple. Neurological: Mental Status: He is alert. Psychiatric: Mood and Affect: Mood normal. Problem List Items Addressed This Visit Mixed hyperlipidemia - Primary Current Assessment & Plan Pt has successfully lost weight, continue current efforts Lab as ordered below Relevant Orders Lipid Panel, Standard Comprehensive Metabolic Panel Polysubstance use disorder Overview Sober from IVDU 7 years (2024) Sober from etoh 9 months attends meetings Exercise counseling Dietary counseling Current Assessment & Plan Dietary Recommendations: Fruits, vegetables, whole grains, protein foods, and fat-free or low-fat dairy products are healthychoices. Eat different types of protein foods in your diet. This can include seafood, lean meats, poultry, beans, peas, lentils, nuts, seeds, soy products, and eggs. Limit foods and beverages higher in added sugars, saturated fat, and sodium. Exercise Recommendations: At least 150 minutes of moderate-intensity physical activity per week, or an equivalent combinationof moderate- and vigorous-intensity activity No current outpatient medications on file. No current facility-administered medications for this visit. Immunization History Administered Date(s) Administered Hep A, Adult 12/26/2021 Hep B, adult 04/18/2017 HepB-CpG 10/24/2021, 12/26/2021 Shailesh SARS-CoV-2 Vaccination 02/09/2021 Pfizer Covid-19 Vaccine 12+ 10/07/2021 Pneumococcal Polysaccharide PPSV23 03/07/2017 Tdap 03/07/2017 documented in this encounter Miscellaneous Notes * Assessment & Plan Note - Luanne Torres NP - 12/09/2024 5:46 PM EDTAssociated Problem(s): Mixed hyperlipidemia Pt has successfully lost weight, continue current efforts Lab as ordered below * Assessment & Plan Note - Luanne Torres NP - 12/09/2024 5:45 PM EDTAssociated Problem(s): Dietary counseling Dietary Recommendations: Fruits, vegetables, whole grains, protein foods, and fat-free or low-fat dairy products are healthychoices. Eat different types of protein foods in your diet. This can include seafood, lean meats, poultry, beans, peas, lentils, nuts, seeds, soy products, and eggs. Limit foods and beverages higher in added sugars, saturated fat, and sodium. Exercise Recommendations: At least 150 minutes of moderate-intensity physical activity per week, or an equivalent combinationof moderate- and vigorous-intensity activity documented in this encounter Plan of Treatment Scheduled Orders Name Type Priority Associated Diagnoses Orde r Schedule Lipid Panel, Standard Lab Routine Mixed hyperlipidemia Expected: 12/09/2024 (Approximate), Expires: 12/09/2025 Comprehensive Metabolic Panel Lab Routine Mixed hyperlipidemia Expected: 12/09/2024 (Approximate), Expires: 12/09/2025 documented as of this encounter Visit Diagnoses Diagnosis Mixed hyperlipidemia- Primary Dietary counseling Dietary surveillance and counseling Exercise counseling Polysubstance use disorder documented in this encounter Additional Health Concerns Assessment Noted Time PHQ-9 Depression Total Score: 4 12/10/19 25 3:14 PM EDT documented as of this encounter Care Teams Custodial Maintenance Worker Relationship Specialty Start Date End Date Luanne Torres NP [address] [place] [address] PCP - General Family Medicine 12/09/[address] [address] 01/25/24 documented as of this encounter
[2024-12-12 11:55] LABS: Alanine Aminotransferase 18 U/L (0-40); Albumin Level 4.5 g/dL (3.5-5.0); Anion Gap 12 (12-20); Aspartate Amino Transferase 28 U/L (5-37); Bilirubin Total 0.5 mg/dL (0.0-1.0); Blood Urea Nitrogen 7 mg/dL (9-16); Calcium 9.3 mg/dL (8.4-10.2); Carbon Dioxide 23 mmol/L (22-29); Chloride 107 mmol/L (96-108); Cholesterol 245 mg/dL (<200); Estimated Glomerular Filt Rate > 60; Glucose Random 97 mg/dL (60-115); HDL Cholesterol 41 mg/dL (>40); LDL Cholesterol Calculated 172 mg/dL (<100); Sodium 138 mmol/L (135-145); Total Protein 7.2 g/dL (6.5-8.0); Triglycerides 161 mg/dL (<150)
[2024-12-12 19:46] LABS: Alkaline Phosphatase 72 U/L (39-117)
== END 2024-12-12 08:25 | disposition home or self-care (01) ==
LOC: HO.HHCL 08:24
PROVIDERS: Visit Provider Nurse Practitioner Family
DX: E78.2 Mixed hyperlipidemia (principal)
CPT/HCPCS: 36415; 80053; 80061

== ENCOUNTER 2025-01-23 10:34 | Outpatient (REF) | payer MEDICAID, SELFPAY ==
--- NOTE | ~2025-01-23 | XR_ITS ---
EXAMINATION: XR LUMBOSACRAL SPINE CLINICAL INFORMATION: back strain, + right leg raise, pain at l5/s1 COMPARISON: None available. TECHNIQUE: 5 views of the lumbar spine, inclusive of bilateral oblique views, were obtained. FINDINGS: There is no scoliosis. There is a normal lordosis. There is no subluxation. There are no compression deformities, acute fractures, or suspicious bone lesions. There is normal facet alignment. There are early degenerative facet changes L4-S1. There are no pars defects. There is early degenerative disc disease at L4-5 and L5-S1. Disc spaces otherwise maintained. The sacrum is intact. The SI joints appear normal. No soft tissue abnormality is evident. XR/XR lumbar spine 4V min IMPRESSION: 1. No acute findings of the lumbar spine. 2. Mild lumbar spondylosis notable L4-S1. Electronically signed by: Vic Malagon MD 01/23/2025 10:59 AM EDT
== END 2025-01-23 10:35 | disposition home or self-care (01) ==
LOC: HO.HHCX 10:34
PROVIDERS: PCP Nurse Practitioner Family; Referring Provider Nurse Practitioner Family; Visit Provider Nurse Practitioner Family
DX: M54.50 Low back pain, unspecified (principal)
CPT/HCPCS: 72110

== ENCOUNTER → 2025-01-23 10:36 | Outpatient (BNV) | payer MEDICAID, SELFPAY | PROVIDERS: PCP Nurse Practitioner Family; Referring Provider Nurse Practitioner Family; Visit Provider Radiology Diagnostic Radiology | DX: S39.012A Strain of muscle, fascia and tendon of lower back, initial encounter (principal) | CPT/HCPCS: 72110 ==